=== PATIENT | male | born 1945 | race Caucasian/White ===

== ENCOUNTER 2019-02-14 12:35 | Inpatient (IN) | payer MEDICARE ==
[2019-02-14] MEDS ORDERED: PANTOPRAZOLE SODIUM 40 MG VIAL IV PRN (12:46)
[2019-02-14] MEDS ORDERED: PANTOPRAZOLE SODIUM 40 MG VIAL IV ONE (12:46)
[2019-02-14 13:07] LABS: ABSOLUTE LYMPHOCYTES (AUTO) 0.9 10^3/uL (0.5-4.7); ABSOLUTE MONOCYTES (AUTO) 0.6 10^3/uL (0.1-1.4); BASOPHILS % (AUTO) 0.2 % (0-2); EOSINOPHILS % (AUTO) 0.2 % (0-6); LYMPHOCYTES % (AUTO) 6.4 % (13-45); MEAN CORPUSCULAR HEMOGLOBIN 31.9 pg (27.0-33.4); MEAN CORPUSCULAR HGB CONC 33.4 g/dL (32.0-36.0); MEAN CORPUSCULAR VOLUME 95 fl (80-97); PLATELET COUNT 319 10^3/uL (150-450); RED CELL DISTRIBUTION WIDTH 13.9 % (11.5-14.0); SEGMENTED NEUTROPHILS % (AUTO) 89.2 % (42-78); TOTAL CELLS COUNTED % (AUTO) 100 %; WHITE BLOOD COUNT 14.6 10^3/uL (4.0-10.5)
[2019-02-14 13:14] LABS: INTERNATIONAL RATION (INR) 1.11; PARTIAL THROMBOPLASTIN TIME 31.5 SEC (23.5-35.8); PROTHROMBIN TIME 14.9 SEC (11.4-15.4)
[2019-02-14 13:24] LABS: ALANINE AMINOTRANSFERASE 27 U/L (21-72); ALBUMIN 3.9 g/dL (3.5-5.0); ALKALINE PHOSPHATASE 77 U/L (38-126); ANION GAP 13 (5-19); ASPARTATE AMINO TRANSFERASE 26 U/L (17-59); BILIRUBIN,DIRECT 0.3 mg/dL (0.0-0.4); BILIRUBIN,TOTAL 0.6 mg/dL (0.2-1.3); BLOOD UREA NITROGEN 16 mg/dL (7-20); CALCIUM 10.1 mg/dL (8.4-10.2); CARBON DIOXIDE 27 mmol/L (22-30); CHLORIDE 97 mmol/L (98-107); GLUCOSE 223 mg/dL (75-110); POTASSIUM 5.4 mmol/L (3.6-5.0); SODIUM 136.7 mmol/L (137-145); TOTAL PROTEIN 6.8 g/dL (6.3-8.2)
--- NOTE | 2019-02-14 14:42 | ER Document Report ---
Entered by TEDDY HERNANDEZ SCRIBE 02/14/19 1311 Acting as scribe for:KALEE MADSEN DO ED General - General Chief Complaint: Vomiting Stated Complaint: VOMITING Time Seen by Provider: 02/14/19 12:44 Mode of Arrival: Medic Information source: Patient Notes: Patient is a 73 year old male with enlarged prostate presents to the emergency department from [facility] via EMS due to vomiting. According to EMS, the patient had an episode of coffee ground emesis this morning and report visualizing the emesis upon arrival to the scene. Patient states he had prostate surgery 2 days ago and was sent to [facility] for rehabilitation afterwards as he is unable to perform all of his ADLs. He state states since being surgery, he has felt nauseous with an acid reflux sensation in his throat. Patient also complains of decreased appetite and fluid intake further stating he has been only able to consume a small amount of soda and Colombian Icee. He mentions having light red urine. He denies any bright red blood in stools or vomit. Patient mentions tarry stools a few weeks ago and being chronically off balance further stating he now uses a walker but this is not an acute change and he has no acute lightheadedness or weakness. Patient is taking a daily aspirin. Past Medical History - General Information source: Patient - Social History Smoking Status: Current Some Day Smoker Cigarette use (# per day): No - Cigars Chew tobacco use (# tins/day): No Smoking Education Provided: No Frequency of alcohol use: None Drug Abuse: None Lives with: [facility] Family History: Reviewed & Not Pertinent Review of Systems - Review of Systems Constitutional: No symptoms reported EENT: See HPI Cardiovascular: No symptoms reported Respiratory: No symptoms reported Gastrointestinal: See HPI, Nausea, Vomiting Genitourinary: See HPI, Hematuria Male Genitourinary: No symptoms reported Musculoskeletal: No symptoms reported Skin: No symptoms reported Hematologic/Lymphatic: No symptoms reported Neurological/Psychological: No symptoms reported -: Yes All other systems reviewed and negative Physical Exam - Vital signs Vitals: Resp BP Pulse Ox 17 131/92 H 96 02/14/19 12:44 02/14/19 12:44 02/14/19 12:44 Interpretation: Tachycardic - Notes Notes: GENERAL: Alert, interacts well. No acute distress. HEAD: Normocephalic, atraumatic. EYES: Pupils equal, round, and reactive to light. Extraocular movements intact. ENT: Oral mucosa moist, tongue midline. NECK: Full range of motion. Supple. Trachea midline. LUNGS: Clear to auscultation bilaterally, no wheezes, rales, or rhonchi. No res piratory distress. HEART: Tachycardic. No murmurs, gallops, or rubs. ABDOMEN: Soft, non-tender. Non-distended. Bowel sounds present in all 4 quadrants. No guarding, rigidity, or rebound. EXTREMITIES: Moves all 4 extremities spontaneously. No edema, 2+ peripheral pulses. No cyanosis. : Andrade catheter in place. Light red urine in bag. NEUROLOGICAL: Alert and oriented x3. Normal speech. PSYCH: Normal affect, normal mood. SKIN: Warm, dry, normal turgor. Slightly pale. RECTAL: Good sphincter tone. Soft brown stool, no signs of bright red blood or melena. Positive bedside heme occult. Course - Re-evaluation Re-evalutation: 02/14/19 14:43 CBC shows leukocytosis of 14.6, no anemia, normal platelets, coags INR slightly prolonged at 1.11, sodium minimally low at 136.7, potassium high at 5.4, glucose elevated 223, lipase normal, patient does not need acute blood transfusion at this time. Hemoccult is faintly positive at bedside. Patient is stable, discussed with hospitalist for admission as he is older, on blood thinners and in his immediate postoperative course. Hospitalist is agreeable to accepting the patient for admission. Will trend their hemoglobin and recheck. Dr. Mackenzie the surgeon is agreeable to intervening should he develop increasing bleeding. Patient was started on Protonix bolus and drip. - Vital Signs Vital signs: Temp Pulse Resp BP Pulse Ox 17 131/92 H 96 02/14/19 12:44 02/14/19 12:44 02/14/19 12:44 - Laboratory Result Diagrams: 02/14/19 12:41 02/14/19 12:41 Laboratory results interpreted by me: 02/14/19 02/14/19 02/14/19 12:41 12:41 12:41 WBC 14.6 H Seg Neutrophils % 89.2 H Lymphocytes % 6.4 L Absolute Neutrophils 13.0 H Sodium 136.7 L Potassium 5.4 H Chloride 97 L Glucose 223 H Lipase < 10.0 L - EKG Interpretation by Me Additional EKG results interpreted by me: 02/14/19 14:49 EKG shows sinus tachycardia at a rate of 116, now that he is been sitting in the room for a while normal axis, normal intervals, T wave inversions in lead III, aVF, T wave inversions V2 through V6 per my interpretation. Discharge - Discharge Clinical Impression: Upper GI bleed Condition: Good Disposition: ADMITTED INPATIENT Admitting Provider: Linda (Hospitalist) Unit Admitted: Telemetry I personally performed the services described in the documentation, reviewed and edited the documentation which was dictated to the scribe in my presence, and it accurately records my words and actions.
[2019-02-14] MEDS ORDERED: ONDANSETRON HCL INJ/PF 4 MG/2 ML SDV IV PRN (15:37)
[2019-02-14] MEDS ORDERED: LEVALBUTEROL HCL NEB 1.25 MG/3 ML AMPUL NEB PRN (15:37)
[2019-02-14] MEDS ORDERED: PROMETHAZINE HCL INJ 25 MG/1 ML VIAL IV PRN (15:37)
[2019-02-14] MEDS ORDERED: ACETAMINOPHEN 325 MG TABLET PO PRN (15:37)
[2019-02-14] MEDS ORDERED: NORMAL SALINE 1000 ML 1,000 ML IV PRN (15:37)
[2019-02-14] MEDS ORDERED: DEXTROSE 50%-WATER 25 GM/50 ML DISP.SYRIN IV PRN ×2 (15:41)
[2019-02-14] MEDS ORDERED: DEXTROSE 40% GEL 15 GM TUBE PO PRN ×2 (15:41)
[2019-02-14] MEDS ORDERED: GLUCAGON,HUMAN RECOMB 1 MG INJ IM PRN (15:41)
--- NOTE | 2019-02-14 16:34 | PDOC H&P ---
History of Present Illness Admission Date/PCP: 02/14/19 15:10 Patient complains of: Coffee-ground emesis History of Present Illness: RUBÉN PACKER is a 73 year old male with the past medical history significant for CVA, DM 2, hypertension, and recent TURP who presented from [facility] with report of onset of coffee-ground emesis this morning. Patient reports that he has had heartburn and indigestion for approximately 2 days; he is feeling somewhat better following his episode of vomiting this morning. The patient takes a daily baby aspirin and Mobic 15 mg. He was also recently started on Plavix following a TIA. Evaluation in the emergency department reveals Mild tachycardia (HR 115) and otherwise normal vital signs, leukocytosis (WBCs 14.6), hemoglobin 14, normal coags, and a chemistry remarkable only for potassium of 5.4. He has a normal creatinine and BUN. Occult stool was positive. EKG demonstrates sinus tachycardia. He is referred to the hospitalist service for admission and management of presumed upper GI bleed related to NSAIDs and Plavix use. Past Medical History Cardiac Medical History: Reports: Hyperlipidema, Hypertension Denies: Atrial Fibrillation, Congestive Heart Failure, Coronary Artery Disease, Myocardial Infarction Pulmonary Medical History: Reports: None EENT Medical History: Reports: None Neurological Medical History: Reports: Ischemic CVA Endocrine Medical History: Reports: Diabetes Mellitus Type 2 Renal/ Medical History: Reports: Other - BPH with TURP approximately 1 week ago; postoperative Andrade in place Malignancy Medical History: Reports: None GI Medical History: Reports: Gastroesophageal Reflux Disease Musculoskeltal Medical History: Reports: Arthritis Skin Medical History: Reports: None Psychiatric Medical History: Reports: Tobacco Dependency Traumatic Medical History: Reports: None Hematology: Reports: None Infectious Medical History: Reports: None Past Surgical History Past Surgical History: Reports: Other - TURP Social History Information Source: Patient Lives with: Alf - For short-term rehab; has been at [facility] for 1 week. Smoking Status: Current Some Day Smoker - 1 cigar daily Frequency of Alcohol Use: None Hx Recreational Drug Use: No Hx Prescription Drug Abuse: No - Advance Directive Resuscitation Status: Full Code Family History Family History: Reviewed & Not Pertinent Parental Family History Reviewed: Yes Children Family History Reviewed: Yes Sibling(s) Family History Reviewed.: Yes Medication/Allergy Home Medications: Aspirin [Ecotrin 81 mg EC Tablet] 81 mg PO DAILY 02/14/19 Atenolol [Tenormin] 25 mg PO QPM 02/14/19 Clopidogrel Bisulfate [Plavix 75 mg Tablet] 75 mg PO DAILY 02/14/19 Glipizide [Glucotrol 5 mg Tablet] 10 mg PO DAILY 02/14/19 Lisinopril [Prinivil 10 mg Tablet] 10 mg PO DAILY 02/14/19 Metformin HCl 1,000 mg PO BIDBS 02/14/19 Nicotine [Nicoderm 14 mg/24 Hr Transdermal Patch] 1 patch TD DAILY 02/14/19 Oxybutynin Chloride [Oxybutynin Chloride ER] 10 mg PO BID 02/14/19 Potassium Chloride [Klor-Con 10 Meq Capsule ER] 10 meq PO DAILY 02/14/19 Allergies/Adverse Reactions: No Known Allergies Allergy (Verified 02/14/19 16:14) Review of Systems Constitutional: PRESENT: weakness. ABSENT: chills, fever(s), headache(s), weight gain, weight loss Eyes: ABSENT: visual disturbances Ears: ABSENT: hearing changes Cardiovascular: ABSENT: chest pain, dyspnea on exertion, edema, orthropnea, palpitations Respiratory: ABSENT: cough, hemoptysis Gastrointestinal: PRESENT: coffee ground emesis, melena, nausea, vomiting. ABSENT: abdominal pain, constipation, diarrhea, hematemesis, hematochezia Genitourinary: PRESENT: hematuria, other - Postoperative Andrade in place. ABSENT: dysuria Musculoskeletal: ABSENT: joint swelling Integumentary: ABSENT: rash, wounds Neurological: ABSENT: abnormal gait, abnormal speech, confusion, dizziness, focal weakness, syncope Psychiatric: ABSENT: anxiety, depression, homidical ideation, suicidal ideation Endocrine: ABSENT: cold intolerance, heat intolerance, polydipsia, polyuria Hematologic/Lymphatic: ABSENT: easy bleeding, easy bruising Physical Exam Vital Signs: Temp Pulse Resp BP Pulse Ox 17 131/92 H 96 02/14/19 12:44 02/14/19 12:44 02/14/19 12:44 General appearance: PRESENT: no acute distress, cooperative, well-developed, well-nourished - Overweight Head exam: PRESENT: atraumatic, normocephalic Eye exam: PRESENT: conjunctiva pink, EOMI, PERRLA. ABSENT: scleral icterus Ear exam: PRESENT: normal external ear exam Mouth exam: PRESENT: moist, tongue midline Neck exam: ABSENT: carotid bruit, JVD, lymphadenopathy, thyromegaly Respiratory exam: PRESENT: clear to auscultation mackenzie, symmetrical, unlabored. ABSENT: rales, rhonchi, wheezes Cardiovascular exam: PRESENT: RRR. ABSENT: diastolic murmur, rubs, systolic murmur Pulses: PRESENT: normal dorsalis pedis pul Vascular exam: PRESENT: normal capillary refill GI/Abdominal exam: PRESENT: normal bowel sounds, soft. ABSENT: distended, guarding, mass, organolmegaly, rebound, tenderness Rectal exam: PRESENT: heme (+) stool - Per ED provider Gentrourinary exam: PRESENT: indwelling catheter Extremities exam: PRESENT: full ROM. ABSENT: calf tenderness, clubbing, pedal edema Neurological exam: PRESENT: alert, awake, oriented to person, oriented to place, oriented to time, oriented to situation, CN II-XII grossly intact. ABSENT: motor sensory deficit Psychiatric exam: PRESENT: appropriate affect, normal mood. ABSENT: homicidal ideation, suicidal ideation Skin exam: PRESENT: dry, intact, warm. ABSENT: cyanosis, rash Results Laboratory Results: 02/14/19 12:41 02/14/19 12:41 02/14/19 02/14/19 02/14/19 12:41 12:41 12:41 WBC 14.6 H RBC 4.40 Hgb 14.0 Hct 42.0 MCV 95 MCH 31.9 MCHC 33.4 RDW 13.9 Plt Count 319 Seg Neutrophils % 89.2 H Lymphocytes % 6.4 L Monocytes % 4.0 Eosinophils % 0.2 Basophils % 0.2 Absolute Neutrophils 13.0 H Absolute Lymphocytes 0.9 Absolute Monocytes 0.6 Absolute Eosinophils 0.0 Absolute Basophils 0.0 Sodium 136.7 L Potassium 5.4 H Chloride 97 L Carbon Dioxide 27 Anion Gap 13 BUN 16 Creatinine 0.76 Est GFR ( Amer) > 60 Est GFR (Non-Af Amer) > 60 Glucose 223 H Calcium 10.1 Total Bilirubin 0.6 AST 26 ALT 27 Alkaline Phosphatase 77 Total Protein 6.8 Albumin 3.9 Lipase Blood Type A POSITIVE Antibody Screen NEGATIVE 02/14/19 12:41 WBC RBC Hgb Hct MCV MCH MCHC RDW Plt Count Seg Neutrophils % Lymphocytes % Monocytes % Eosinophils % Basophils % Absolute Neutrophils Absolute Lymphocytes Absolute Monocytes Absolute Eosinophils Absolute Basophils Sodium Potassium Chloride Carbon Dioxide Anion Gap BUN Creatinine Est GFR ( Amer) Est GFR (Non-Af Amer) Glucose Calcium Total Bilirubin AST ALT Alkaline Phosphatase Total Protein Albumin Lipase < 10.0 L Blood Type Antibody Screen Assessment and Plan - Diagnosis (1) Upper GI bleed Is this a current diagnosis for this admission?: Yes Plan: Patient takes daily aspirin and Mobic. He was recently started on Plavix for recurrent TIAs. He has had 1 to 2 days of gastritis/epigastric discomfort with coffee-ground emesis beginning this morning. Occult stool was positive. Hemoglobin is 14. He appears to be hemodynamically stable at this time. He is admitted to the medical floor. He is already received an IV Protonix bolus and has been placed on a Protonix drip. We will continue Protonix drip. He is placed on clear liquid diets; will advance slowly as tolerated. We will monitor daily CBC. Ideally the patient's hemoglobin will remain stable and his symptoms will resolve so that he can be discharged to [facility] with outpatient GI follow-up. Should the patient's condition deteriorate; the ED provider has contacted Dr. Sa phillip, surgery, will be able to assist with management of the patient. (2) Hypertension Is this a current diagnosis for this admission?: Yes Plan: Patient endorses a history of hypertension. He is currently on a clear diet; will advance to cardiac as tolerated. We will continue his home dose lisinopril and atenolol. (3) DM type 2 (diabetes mellitus, type 2) Qualifiers: Diabetes mellitus extension course counselor insulin use: without extension course counselor use Diabetes mellitus complication status: without complication Qualified Code(s): E11.9 - Type 2 diabetes mellitus without complications Is this a current diagnosis for this admission?: Yes Plan: Patient endorses history of diabetes. His home dose metformin and glipizide will be placed on hold while admitted. Currently on a clear liquid diet; will advance to cardiac/consistent carb when tolerated. Accu-Cheks before meals and at bedtime with Humalog for sliding scale coverage. Hypoglycemia protocol in place. (4) History of CVA (cerebrovascular accident) Is this a current diagnosis for this admission?: Yes Plan: Patient has a history of CVA and multiple TIA events. He was recently evaluated at [place] for TIA. He was already on aspirin 81 mg daily and so was placed on Plavix as well. Plavix was briefly held to allow for TURP but was resumed approximately 5 days ago. He has no history of PAF that he can recall. It does not appear that the patient is on a statin. Aspirin and Plavix on hold secondary to active GI bleed. (5) Urinary retention Is this a current diagnosis for this admission?: Yes Plan: Patient recently underwent a TURP at [place] for acute urinary retention. We will continue his home dose oxybutynin. We will relieve postoperative Andrade catheter in place. Patient reports occasional hematuria; flush as needed. - Time Time Spent with patient: 35 or more minutes Medications reviewed and adjusted accordingly: Yes Anticipated discharge: SNF - Return to [facility] for short term rehab Within: within 72 hours
[2019-02-14] MEDS ORDERED: (PENDING PHARMACY ID) (Oxybutynin Chloride [Oxybutynin Chloride Er] 10 MG) PO SCH (18:00)
[2019-02-14] MEDS ORDERED: ATENOLOL 50 MG TABLET PO SCH (18:00)
[2019-02-14] MEDS ORDERED: (PENDING PHARMACY ID) (Atenolol [Tenormin] 25 MG) PO SCH (18:00)
[2019-02-14] MEDS: OXYBUTYNIN CHLORIDE 5 MG TABLET PO SCH (18:16)
[2019-02-14] MEDS: INSULIN LISPRO 100 UNIT/ML 3 ML VIAL SUBCUT SCH ×2 (18:17→22:09)
[2019-02-14 19:09] LABS: APPEARANCE,URINE CLOUDY; BILIRUBIN,URINE NEGATIVE (NEGATIVE); COLOR,URINE YELLOW; GLUCOSE, URINE 50 mg/dL (NEGATIVE); KETONES,URINE TRACE mg/dL (NEGATIVE); LEUKOCYTE ESTERASE,URINE TRACE (NEGATIVE); NITRITE,URINE NEGATIVE (NEGATIVE); PROTEIN,URINE >=500 mg/dL (NEGATIVE); URINE SPECIFIC GRAVITY 1.022; UROBILINOGEN,URINE NEGATIVE mg/dL (<2.0)
[2019-02-15 05:03] LABS: HEMATOCRIT 37.5 % (37.9-51.0); HEMOGLOBIN 12.7 g/dL (13.5-17.0); MEAN CORPUSCULAR HEMOGLOBIN 32.3 pg (27.0-33.4); MEAN CORPUSCULAR HGB CONC 33.9 g/dL (32.0-36.0); MEAN CORPUSCULAR VOLUME 95 fl (80-97); PLATELET COUNT 270 10^3/uL (150-450); RED BLOOD COUNT 3.94 10^6/uL (4.35-5.55); RED CELL DISTRIBUTION WIDTH 13.8 % (11.5-14.0); WHITE BLOOD COUNT 11.7 10^3/uL (4.0-10.5)
[2019-02-15 05:24] LABS: ANION GAP 8 (5-19); BLOOD UREA NITROGEN 17 mg/dL (7-20); CALCIUM 8.7 mg/dL (8.4-10.2); CARBON DIOXIDE 26 mmol/L (22-30); CHLORIDE 103 mmol/L (98-107); GLUCOSE 126 mg/dL (75-110); SODIUM 137.2 mmol/L (137-145)
[2019-02-15] MEDS: NORMAL SALINE 100 ML with PANTOPRAZOLE SODIUM 80 MG IV PRN ×4 (07:10→16:58)
[2019-02-15] MEDS: INSULIN LISPRO 100 UNIT/ML 3 ML VIAL SUBCUT SCH ×4 (08:08→21:34)
[2019-02-15] MEDS ORDERED: NORMAL SALINE 1000 ML 1,000 ML IV PRN (08:47)
--- NOTE | 2019-02-15 09:30 | EKG REPORT ---
SEVERITY:- ABNORMAL ECG - SINUS OR ECTOPIC ATRIAL TACHYCARDIA ABNRM R PROG, CONSIDER ASMI OR LEAD PLACEMENT BORDERLINE ST DEPRESSION, DIFFUSE LEADS : Confirmed by: Simran Contreras MD 15-Feb-2019 09:29:23
[2019-02-15] MEDS: OXYBUTYNIN CHLORIDE 5 MG TABLET PO SCH ×2 (10:26→17:02)
[2019-02-15] MEDS: LISINOPRIL 10 MG TABLET PO SCH (10:27)
[2019-02-15] MEDS: ATENOLOL 50 MG TABLET PO SCH ×2 (10:27→17:02)
[2019-02-15] MEDS: NICOTINE 14 MG/24 HR PATCH.TD24 TD SCH (10:28)
--- NOTE | 2019-02-15 11:59 | PDOC PROGRESS REPORT ---
Subjective Progress Note for:: 02/15/19 Subjective:: RUBÉN PACKER is a 73 year old male with the past medical history significant for CVA, DM 2, PAF, hypertension, and recent TURP who presented from [facility] (short term rehab) was admitted 02/14/19 for Upper GI bleed. Patient was seen on morning rounds. He is found resting in bed comfortably on room air. He reports that he is feeling well today; he has had no further episodes of hematemesis. He reports that he is tolerating clear liquid diet without abdominal discomfort, nausea, emesis, loose or frequent stools. He denies hematochezia and melena. He further denies fever, chills, headache, dizziness, chest pain, palpitations, dyspnea, orthopnea. He has no questions or concerns today. Nursing reports intermittent episodes of a flutter on telemetry; patient confirms history of PAF. Reason For Visit: UPPER GI BLEED Physical Exam Vital Signs: Temp Pulse Resp BP Pulse Ox 97.9 F 114 H 20 132/84 H 98 02/15/19 08:27 02/15/19 09:17 02/15/19 09:17 02/15/19 08:27 02/15/19 09:17 Intake & Output 02/14/19 02/15/19 02/16/19 06:59 06:59 06:59 Intake Total 390 350 Output Total 1325 Balance -935 350 Weight 102 kg General appearance: PRESENT: no acute distress, cooperative, well-developed, wel l-nourished, other - Overweight Head exam: PRESENT: atraumatic, normocephalic Eye exam: PRESENT: conjunctiva pink, EOMI, PERRLA. ABSENT: scleral icterus Ear exam: PRESENT: normal external ear exam Mouth exam: PRESENT: moist, tongue midline Neck exam: ABSENT: carotid bruit, JVD, lymphadenopathy, thyromegaly Respiratory exam: PRESENT: clear to auscultation mackenzie, symmetrical, unlabored. ABSENT: rales, rhonchi, wheezes Cardiovascular exam: PRESENT: irregular rhythm, +S1, +S2. ABSENT: diastolic murmur, rubs, systolic murmur Pulses: PRESENT: normal dorsalis pedis pul Vascular exam: PRESENT: normal capillary refill GI/Abdominal exam: PRESENT: normal bowel sounds, soft. ABSENT: distended, guarding, mass, organolmegaly, rebound, tenderness Rectal exam: PRESENT: deferred Extremities exam: PRESENT: full ROM. ABSENT: calf tenderness, clubbing, pedal edema Neurological exam: PRESENT: alert, awake, oriented to person, oriented to place, oriented to time, oriented to situation, CN II-XII grossly intact. ABSENT: motor sensory deficit Psychiatric exam: PRESENT: appropriate affect, normal mood. ABSENT: homicidal ideation, suicidal ideation Skin exam: PRESENT: dry, intact, warm. ABSENT: cyanosis, rash Results Laboratory Results: 02/15/19 04:18 02/15/19 04:18 02/14/19 02/14/19 02/14/19 12:41 12:41 12:41 WBC 14.6 H RBC 4.40 Hgb 14.0 Hct 42.0 MCV 95 MCH 31.9 MCHC 33.4 RDW 13.9 Plt Count 319 Seg Neutrophils % 89.2 H Lymphocytes % 6.4 L Monocytes % 4.0 Eosinophils % 0.2 Basophils % 0.2 Absolute Neutrophils 13.0 H Absolute Lymphocytes 0.9 Absolute Monocytes 0.6 Absolute Eosinophils 0.0 Absolute Basophils 0.0 Sodium 136.7 L Potassium 5.4 H Chloride 97 L Carbon Dioxide 27 Anion Gap 13 BUN 16 Creatinine 0.76 Est GFR ( Amer) > 60 Est GFR (Non-Af Amer) > 60 Glucose 223 H Calcium 10.1 Total Bilirubin 0.6 AST 26 ALT 27 Alkaline Phosphatase 77 Total Protein 6.8 Albumin 3.9 Lipase Urine Color Urine Appearance Urine pH Ur Specific [place] Urine Protein Urine Glucose (UA) Urine Ketones Urine Blood Urine Nitrite Ur Leukocyte Esterase Urine WBC (Auto) Urine RBC (Auto) Blood Type A POSITIVE Antibody Screen NEGATIVE 02/14/19 02/14/19 02/15/19 12:41 18:38 04:18 WBC 11.7 H RBC 3.94 L Hgb 12.7 L Hct 37.5 L MCV 95 MCH 32.3 MCHC 33.9 RDW 13.8 Plt Count 270 Seg Neutrophils % Lymphocytes % Monocytes % Eosinophils % Basophils % Absolute Neutrophils Absolute Lymphocytes Absolute Monocytes Absolute Eosinophils Absolute Basophils Sodium Potassium Chloride Carbon Dioxide Anion Gap BUN Creatinine Est GFR ( Amer) Est GFR (Non-Af Amer) Glucose Calcium Total Bilirubin AST ALT Alkaline Phosphatase Total Protein Albumin Lipase < 10.0 L Urine Color YELLOW Urine Appearance CLOUDY Urine pH 5.0 Ur Specific [place] 1.022 Urine Protein >=500 H Urine Glucose (UA) 50 H Urine Ketones TRACE H Urine Blood MODERATE H Urine Nitrite NEGATIVE Ur Leukocyte Esterase TRACE H Urine WBC (Auto) 107 Urine RBC (Auto) >182 Blood Type Antibody Screen 02/15/19 04:18 WBC RBC Hgb Hct MCV MCH MCHC RDW Plt Count Seg Neutrophils % Lymphocytes % Monocytes % Eosinophils % Basophils % Absolute Neutrophils Absolute Lymphocytes Absolute Monocytes Absolute Eosinophils Absolute Basophils Sodium 137.2 Potassium 5.0 Chloride 103 Carbon Dioxide 26 Anion Gap 8 BUN 17 Creatinine 0.79 Est GFR ( Amer) > 60 Est GFR (Non-Af Amer) > 60 Glucose 126 H Calcium 8.7 Total Bilirubin AST ALT Alkaline Phosphatase Total Protein Albumin Lipase Urine Color Urine Appearance Urine pH Ur Specific [place] Urine Protein Urine Glucose (UA) Urine Ketones Urine Blood Urine Nitrite Ur Leukocyte Esterase Urine WBC (Auto) Urine RBC (Auto) Blood Type Antibody Screen Assessment and Plan - Diagnosis (1) Upper GI bleed Is this a current diagnosis for this admission?: Yes Plan: Patient takes daily aspirin and Mobic. He was recently started on Plavix for recurrent TIAs. He has had 1 to 2 days of gastritis/epigastric discomfort with coffee-ground emesis beginning this morning. Occult stool was positive. Hemoglobin is 14-> 12.7 (likely hemodilution). He appears to be hemodynamically stable at this time. He is admitted to the medical floor. Continue Protonix drip. He is placed on clear liquid diets. Spoke with Dr. Mackenzie today; as there is concern about the patient's ability to follow-up as an outpatient (disclose that he is homeless) we will plan for EGD tomorrow. We will monitor daily CBC. (2) Hypertension Is this a current diagnosis for this admission?: Yes Plan: Patient endorses a history of hypertension. Continue lisinopril and atenolol. (3) DM type 2 (diabetes mellitus, type 2) Qualifiers: Diabetes mellitus terminal gauger supervisor insulin use: without terminal gauger supervisor use Diabetes mellitus complication status: without complication Qualified Code(s): E11.9 - Type 2 diabetes mellitus without complications Is this a current diagnosis for this admission?: Yes Plan: Patient endorses history of diabetes. His home dose metformin and glipizide will be placed on hold while admitted. Currently on a clear liquid diet; will advance to cardiac/consistent carb when tolerated. Accu-Cheks before meals and at bedtime with Humalog for sliding scale coverage. Hypoglycemia protocol in place. (4) History of CVA (cerebrovascular accident) Is this a current diagnosis for this admission?: Yes Plan: Patient has a history of CVA and multiple TIA events. He was recently evaluated at [place] for TIA. He was already on aspirin 81 mg daily and so was placed on Plavix as well. Plavix was briefly held to allow for TURP but was resumed approximately 5 days ago. He has no history of PAF that he can recall. It does not appear that the patient is on a statin. Aspirin and Plavix on hold secondary to active GI bleed. (5) Urinary retention Is this a current diagnosis for this admission?: Yes Plan: Patient recently underwent a TURP at [place] for acute urinary retention. We will continue his home dose oxybutynin. We will relieve postoperative Andrade catheter in place. Patient reports occasional hematuria; flush as needed. (6) PAF (paroxysmal atrial fibrillation) Is this a current diagnosis for this admission?: Yes Plan: Patient endorses a history of atrial fibrillation. At time of admission yesterday patient was in normal sinus rhythm, today he was noted to have episodes of a flutter. Daily aspirin is on hold secondary to upper GI bleed. Home dose of atenolol is increased from 25 mg nightly to 25 mg twice daily. We will continue to monitor on cardiac telemetry and consider addition of di ltiazem. Patient was not chronically anticoagulated; would advise against chronic anticoagulation. Chads vas score 5; 7.2% yearly CVA risk. Has Bled score 5; 9.1% yearly hemorrhage risk. - Time Time Spent with patient: 25-34 minutes Medications reviewed and adjusted accordingly: Yes Anticipated discharge: Home - [facility] Within: within 48 hours
[2019-02-15] MEDS: MAG HYDROX/AL HYDROX/SIMETH SUSP 30 ML UDCUP PO PRN ×2 (13:05→20:26)
--- NOTE | 2019-02-15 23:07 | PDOC CONSULTATION ---
Consultation Consult Date: 02/15/19 Provider Consulted: SURGICAL SURGICALIST Consult reason:: upper GI bleeding History of Present Illness Admission Date/PCP: 02/14/19 15:10 Patient complains of: hematemesis History of Present Illness: RUBÉN PACKER is a 73 year old male seen in consultation at the request of the hospitalist. The patient has a 1 day history of multiple episodes of hematemesis. The patient reports bright red and dark blood. This happened twice yesterday. It has not happened since. He has never had symptoms like this before. He is not sure of any inciting event. The patient denies any significant abdominal pain. He denies any use of soda pop, NSAIDs, alcohol, caffeine, or steroids. He does smoke every day. He has never been tested for H. pylori. He has never had an upper endoscopy. The patient does take Plavix, however he has been off of it for several days. The patient denies chest pain, shortness of breath, fevers, chills, melena, dizziness, orthostasis, fatigue, malaise, blurry vision, rash. Past Medical History Cardiac Medical History: Reports: Hyperlipidema, Hypertension Denies: Atrial Fibrillation, Congestive Heart Failure, Coronary Artery Disease, Myocardial Infarction Pulmonary Medical History: Reports: None EENT Medical History: Reports: None Neurological Medical History: Reports: Ischemic CVA Endocrine Medical History: Reports: Diabetes Mellitus Type 2 Renal/ Medical History: Reports: Other - BPH with TURP approximately 1 week ago; postoperative Andrade in place Malignancy Medical History: Reports: None GI Medical History: Reports: Gastroesophageal Reflux Disease Musculoskeltal Medical History: Reports: Arthritis Skin Medical History: Reports: None Psychiatric Medical History: Reports: Tobacco Dependency Traumatic Medical History: Reports: None Hematology: Reports: None Infectious Medical History: Reports: None Past Surgical History Past Surgical History: Reports: Other - TURP Social History Lives with: Care Home - For short-term rehab; has been at [facility] for 1 week. Smoking Status: Current Some Day Smoker Frequency of Alcohol Use: None Hx Recreational Drug Use: No Hx Prescription Drug Abuse: No - Advance Directive Resuscitation Status: Full Code Family History Family History: Reviewed & Not Pertinent Parental Family History Reviewed: Yes Children Family History Reviewed: Yes Sibling(s) Family History Reviewed.: Yes Medication/Allergy Home Medications: Aspirin [Ecotrin 81 mg EC Tablet] 81 mg PO DAILY 06/22/19 Atenolol [Tenormin] 25 mg PO QPM 02/14/19 Clopidogrel Bisulfate [Plavix 75 mg Tablet] 75 mg PO DAILY 02/14/19 Glipizide [Glucotrol 5 mg Tablet] 10 mg PO DAILY 02/14/19 Lisinopril [Prinivil 10 mg Tablet] 10 mg PO DAILY 02/14/19 Metformin HCl 1,000 mg PO BIDBS 02/14/19 Nicotine [Nicoderm 14 mg/24 Hr Transdermal Patch] 1 patch TD DAILY 02/14/19 Oxybutynin Chloride [Oxybutynin Chloride ER] 10 mg PO BID 02/14/19 Potassium Chloride [Klor-Con 10 Meq Capsule ER] 10 meq PO DAILY 02/14/19 Allergies/Adverse Reactions: No Known Allergies Allergy (Verified 02/14/19 16:14) Review of Systems Constitutional: ABSENT: anorexia, chills, fatigue Eyes: ABSENT: visual disturbances Ears: ABSENT: hearing changes Nose, Mouth, and Throat: ABSENT: sore throat Cardiovascular: ABSENT: chest pain Gastrointestinal: PRESENT: coffee ground emesis, hematemesis, nausea, vomiting. ABSENT: abdominal pain, bloating, melena Genitourinary: PRESENT: dysuria Musculoskeletal: ABSENT: back pain Integumentary: ABSENT: pruritus, rash Neurological: ABSENT: confusion, convulsions, dizziness Psychiatric: ABSENT: anxiety, depression Endocrine: ABSENT: cold intolerance, heat intolerance Hematologic/Lymphatic: PRESENT: easy bruising Physical Exam Vital Signs: Temp Pulse Resp BP Pulse Ox 98.4 F 64 16 125/84 99 02/15/19 20:00 02/15/19 20:00 02/15/19 20:00 02/15/19 20:00 02/15/19 20:00 Intake & Output 02/14/19 02/15/19 02/16/19 06:59 06:59 06:59 Intake Total 390 1930 Output Total 1325 1750 Balance -935 180 Weight 102 kg General appearance: PRESENT: no acute distress, cooperative Head exam: PRESENT: atraumatic, normocephalic Eye exam: PRESENT: EOMI, PERRLA. ABSENT: scleral icterus Mouth exam: PRESENT: moist Neck exam: ABSENT: meningismus, tenderness, thyromegaly, tracheal deviation Respiratory exam: PRESENT: clear to auscultation mackenzie, unlabored. ABSENT: chest wall tenderness, tachypnea Cardiovascular exam: PRESENT: RRR Pulses: PRESENT: normal radial pulses GI/Abdominal exam: PRESENT: soft. ABSENT: distended, guarding, rigid, tenderness Rectal exam: PRESENT: deferred Extremities exam: ABSENT: clubbing Musculoskeletal exam: ABSENT: deformity Neurological exam: PRESENT: alert, awake, oriented to person, oriented to place, oriented to time, oriented to situation Psychiatric exam: ABSENT: agitated, anxious Focused psych exam: ABSENT: delusional Skin exam: ABSENT: cyanosis, erythema, jaundice Results Laboratory Results: 02/15/19 04:18 02/15/19 04:18 02/15/19 02/15/19 04:18 04:18 WBC 11.7 H RBC 3.94 L Hgb 12.7 L Hct 37.5 L MCV 95 MCH 32.3 MCHC 33.9 RDW 13.8 Plt Count 270 Sodium 137.2 Potassium 5.0 Chloride 103 Carbon Dioxide 26 Anion Gap 8 BUN 17 Creatinine 0.79 Est GFR ( Amer) > 60 Est GFR (Non-Af Amer) > 60 Glucose 126 H Calcium 8.7 Assessment & Plan - Diagnosis (1) Upper GI bleed Is this a current diagnosis for this admission?: Yes - Plan Summary Plan Summary: This is a 73-year-old male with 2 separate episodes of hematemesis yesterday. The patient had a slight drop in his hemoglobin today. The patient has never had an upper endoscopy. He does use a significant amount of nicotine. I have discussed treatment options with the patient. He is requesting upper endoscopy. He has been off of his Plavix for several days. Risks/benefits were discussed, informed consent obtained, and all questions answered.
[2019-02-16] MEDS: NORMAL SALINE 100 ML with PANTOPRAZOLE SODIUM 80 MG IV PRN ×2 (01:49)
[2019-02-16 04:44] LABS: HEMATOCRIT 36.1 % (37.9-51.0); HEMOGLOBIN 12.2 g/dL (13.5-17.0); MEAN CORPUSCULAR HGB CONC 33.9 g/dL (32.0-36.0); MEAN CORPUSCULAR VOLUME 94 fl (80-97); PLATELET COUNT 251 10^3/uL (150-450); RED BLOOD COUNT 3.82 10^6/uL (4.35-5.55); RED CELL DISTRIBUTION WIDTH 13.4 % (11.5-14.0); WHITE BLOOD COUNT 8.8 10^3/uL (4.0-10.5)
[2019-02-16 05:08] LABS: ANION GAP 7 (5-19); BLOOD UREA NITROGEN 12 mg/dL (7-20); CALCIUM 8.6 mg/dL (8.4-10.2); CARBON DIOXIDE 27 mmol/L (22-30); CHLORIDE 105 mmol/L (98-107); GLUCOSE 134 mg/dL (75-110); POTASSIUM 5.1 mmol/L (3.6-5.0); SODIUM 138.6 mmol/L (137-145)
--- NOTE | 2019-02-16 07:37 | PDOC PROGRESS REPORT ---
Subjective Progress Note for:: 02/16/19 Reason For Visit: UPPER GI BLEED Physical Exam Vital Signs: Temp Pulse Resp BP Pulse Ox 97.8 F 87 17 116/73 98 02/15/19 23:33 02/16/19 02:00 02/15/19 23:33 02/15/19 23:33 02/15/19 23:33 Intake & Output 02/15/19 02/16/19 02/17/19 06:59 06:59 06:59 Intake Total 390 1930 Output Total 1325 3350 Balance -935 -1420 Weight 102 kg 103.1 kg General appearance: PRESENT: no acute distress Head exam: PRESENT: atraumatic, normocephalic Eye exam: PRESENT: EOMI, PERRLA Mouth exam: PRESENT: moist, neck supple Neck exam: ABSENT: meningismus, tenderness, thyromegaly, tracheal deviation Respiratory exam: PRESENT: clear to auscultation mackenzie, unlabored. ABSENT: tachypnea, wheezes Cardiovascular exam: PRESENT: RRR Pulses: PRESENT: normal radial pulses GI/Abdominal exam: PRESENT: soft. ABSENT: distended, tenderness Rectal exam: PRESENT: deferred Extremities exam: ABSENT: clubbing Musculoskeletal exam: ABSENT: deformity Neurological exam: PRESENT: alert, awake, oriented to person, oriented to place, oriented to time, oriented to situation, CN II-XII grossly intact Psychiatric exam: ABSENT: agitated, anxious, depressed Focused psych exam: ABSENT: delusional Skin exam: ABSENT: cyanosis, erythema, jaundice Results Laboratory Results: 02/16/19 04:15 02/16/19 04:15 02/16/19 02/16/19 04:15 04:15 WBC 8.8 RBC 3.82 L Hgb 12.2 L Hct 36.1 L MCV 94 MCH 32.0 MCHC 33.9 RDW 13.4 Plt Count 251 Sodium 138.6 Potassium 5.1 H Chloride 105 Carbon Dioxide 27 Anion Gap 7 BUN 12 Creatinine 0.78 Est GFR ( Amer) > 60 Est GFR (Non-Af Amer) > 60 Glucose 134 H Calcium 8.6 Assessment & Plan - Diagnosis (1) Upper GI bleed Is this a current diagnosis for this admission?: Yes - Plan Summary Plan Summary: 73-year-old male with hematemesis. He has requested EGD for diagnostic purposes. I have agreed to this. Risks/benefits discussed, informed consent obtained, and all questions answered. Plan for EGD today.
[2019-02-16] MEDS: INSULIN LISPRO 100 UNIT/ML 3 ML VIAL SUBCUT SCH ×4 (09:26→21:37)
[2019-02-16] MEDS: ATENOLOL 50 MG TABLET PO SCH ×2 (09:59→17:00)
[2019-02-16] MEDS: NICOTINE 14 MG/24 HR PATCH.TD24 TD SCH (09:59)
[2019-02-16] MEDS: LISINOPRIL 10 MG TABLET PO SCH (09:59)
[2019-02-16] MEDS: OXYBUTYNIN CHLORIDE 5 MG TABLET PO SCH ×2 (09:59→17:00)
[2019-02-16] MEDS ORDERED: MIDAZOLAM 2 MG/2 ML INJ ONE (11:52)
[2019-02-16] MEDS ORDERED: PROPOFOL INJ 200 MG/20 ML VIAL IV ONE (11:53)
--- NOTE | 2019-02-16 12:22 | PDOC PROGRESS REPORT ---
Subjective Progress Note for:: 02/16/19 Subjective:: RUBÉN PACKER is a 73 year old male with the past medical history significant for CVA, DM 2, PAF, hypertension, and recent TURP who presented from [facility] (short term rehab) was admitted 02/14/19 for Upper GI bleed. Patient was seen on morning rounds. He is found resting in bed comfortably on room air. He reports that he is feeling well today. He denies hematemesis, hematochezia and melena. He further denies fever, chills, headache, dizziness, chest pain, palpitations, dyspnea, orthopnea. He has no questions or concerns today. No concerns per nursing. Reason For Visit: UPPER GI BLEED Physical Exam Vital Signs: Temp Pulse Resp BP Pulse Ox 97.7 F 86 16 121/85 96 02/16/19 07:18 02/16/19 09:11 02/16/19 09:11 02/16/19 07:18 02/16/19 09:11 Intake & Output 02/15/19 02/16/19 02/17/19 06:59 06:59 06:59 Intake Total 390 1930 Output Total 1325 3350 Balance -935 -1420 Weight 102 kg 103.1 kg General appearance: PRESENT: no acute distress, cooperative, well-developed, well-nourished - Overweight Head exam: PRESENT: atraumatic, normocephalic Eye exam: PRESENT: conjunctiva pink, EOMI, PERRLA. ABSENT: scleral icterus Ear exam: PRESENT: normal external ear exam Mouth exam: PRESENT: moist, tongue midline Neck exam: ABSENT: carotid bruit, JVD, lymphadenopathy, thyromegaly Respiratory exam: PRESENT: clear to auscultation mackenzie, symmetrical, unlabored. ABSENT: rales, rhonchi, wheezes Cardiovascular exam: PRESENT: irregular rhythm, +S1, +S2. ABSENT: diastolic murmur, rubs, systolic murmur Pulses: PRESENT: normal dorsalis pedis pul Vascular exam: PRESENT: normal capillary refill GI/Abdominal exam: PRESENT: normal bowel sounds, soft. ABSENT: distended, guarding, mass, organolmegaly, rebound, tenderness Rectal exam: PRESENT: deferred Gentrourinary exam: PRESENT: indwelling catheter Extremities exam: PRESENT: full ROM. ABSENT: calf tenderness, clubbing, pedal edema Neurological exam: PRESENT: alert, awake, oriented to person, oriented to place, oriented to time, oriented to situation, CN II-XII grossly intact. ABSENT: motor sensory deficit Psychiatric exam: PRESENT: appropriate affect, normal mood. ABSENT: homicidal ideation, suicidal ideation Skin exam: PRESENT: dry, intact, warm. ABSENT: cyanosis, rash Results Laboratory Results: 02/16/19 04:15 02/16/19 04:15 02/16/19 02/16/19 04:15 04:15 WBC 8.8 RBC 3.82 L Hgb 12.2 L Hct 36.1 L MCV 94 MCH 32.0 MCHC 33.9 RDW 13.4 Plt Count 251 Sodium 138.6 Potassium 5.1 H Chloride 105 Carbon Dioxide 27 Anion Gap 7 BUN 12 Creatinine 0.78 Est GFR ( Amer) > 60 Est GFR (Non-Af Amer) > 60 Glucose 134 H Calcium 8.6 Assessment and Plan - Diagnosis (1) Upper GI bleed Is this a current diagnosis for this admission?: Yes Plan: Patient takes daily aspirin and Mobic. He was recently started on Plavix for recurrent TIAs. He has had 1 to 2 days of gastritis/epigastric discomfort with coffee-ground em esis beginning this morning. Occult stool was positive. Hemoglobin is 14-> 12.2 (likely hemodilution). He appears to be hemodynamically stable at this time. He is admitted to the medical floor. Transition to p.o. Protonix following the EGD. Surgery is consulted; appreciate their assistance. Plan for EGD today. We will monitor daily CBC. (2) Hypertension Is this a current diagnosis for this admission?: Yes Plan: Patient endorses a history of hypertension. Normotensive today. Continue lisinopril and atenolol. 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 His home dose metformin and glipizide will be placed on hold while admitted. Currently on a clear liquid diet; will advance to cardiac/consistent carb when tolerated. Accu-Cheks before meals and at bedtime with Humalog for sliding scale coverage. Hypoglycemia protocol in place. (4) History of CVA (cerebrovascular accident) Is this a current diagnosis for this admission?: Yes Plan: Patient has a history of CVA and multiple TIA events. He was recently evaluated at [facility] for TIA. He was already on aspirin 81 mg daily and so was placed on Plavix as well. Plavix was briefly held to allow for TURP but was resumed approximately 5 days ago. He has no history of PAF that he can recall. It does not appear that the patient is on a statin. Aspirin and Plavix on hold secondary to active GI bleed. (5) Urinary retention Is this a current diagnosis for this admission?: Yes Plan: Patient recently underwent a TURP at [facility] for acute urinary retention. We will continue his home dose oxybutynin. Patient reports occasional hematuria; flush as needed. Discharge home w/ Andrade in place. Follow up with Urologist as scheduled. (6) PAF (paroxysmal atrial fibrillation) Is this a current diagnosis for this admission?: Yes Plan: Patient endorses a history of atrial fibrillation. Currently rate controlled in a flutter. Daily aspirin is on hold secondary to upper GI bleed. Continue atenolol 25 mg twice daily. We will continue to monitor on cardiac telemetry and consider addition of diltiazem. Patient was not chronically anticoagulated; would advise against chronic anticoagulation. Chads vas score 5; 7.2% yearly CVA risk. Has Bled score 5; 9.1% yearly hemorrhage risk. - Time Time Spent with patient: 15-24 minutes Medications reviewed and adjusted accordingly: Yes Anticipated discharge: SNF - return to [facility] for short term rehab Within: within 24 hours
[2019-02-16] MEDS ORDERED: PROMETHAZINE HCL INJ 25 MG/1 ML VIAL IV PRN (15:23)
--- NOTE | 2019-02-17 01:21 | Operative Report ---
Nonrecallable Operative Report DATE OF SURGERY: 02/16/19 PREOPERATIVE DIAGNOSIS: Hematemesis, upper GI bleeding POSTOPERATIVE DIAGNOSIS: 1. Severe esophagitis extending from approximately 25 cm to the GE junction at approximately 45 cm. 2. Normal-appearing stomach and duodenum. OPERATION: EGD with biopsy SURGEON: JUAN F RAMOS ANESTHESIA: LMAC TISSUE REMOVED OR ALTERED: 1. Antrum biopsy to rule out H. pylori. 2. Distal esophagus. 3. Midesophagus. COMPLICATIONS: None apparent ESTIMATED BLOOD LOSS: Minimal PROCEDURE: Procedure in detail: After informed consent was obtained, the patient was brought to the operating room and laid in the left lateral decubitus position. The endoscope was passed down the oropharynx, down the esophagus, and into the stomach. The stomach was insufflated with air. The mucosa of the stomach appeared normal. The scope was pushed through the pylorus and into the first a nd second portions of the duodenum, which also appeared normal. There is no old blood or evidence of active bleeding. A biopsy was taken in the antrum to rule out H. pylori infection. Retroflexion maneuver was performed in the gastric body, revealing a small, sliding hiatal hernia. The scope was then pulled up into the distal esophagus. Severe ulcerations were found at the distal esophagus beginning at the GE junction and extending up to approximately 25 cm. Biopsy was taken at the distal esophagus as well as approximately 30 cm in the mid esophagus. The scope was then pulled up the remainder of the esophagus, and out the oropharynx. The procedure at this time was concluded. All sponge, instrument, and needle counts were correct. Condition: Stable.
[2019-02-17 04:07] LABS: HEMOGLOBIN 12.2 g/dL (13.5-17.0); MEAN CORPUSCULAR HEMOGLOBIN 31.8 pg (27.0-33.4); MEAN CORPUSCULAR VOLUME 94 fl (80-97); PLATELET COUNT 258 10^3/uL (150-450); RED BLOOD COUNT 3.84 10^6/uL (4.35-5.55); RED CELL DISTRIBUTION WIDTH 13.5 % (11.5-14.0); WHITE BLOOD COUNT 9.7 10^3/uL (4.0-10.5)
[2019-02-17 04:27] LABS: ANION GAP 8 (5-19); BLOOD UREA NITROGEN 12 mg/dL (7-20); CALCIUM 8.6 mg/dL (8.4-10.2); CARBON DIOXIDE 27 mmol/L (22-30); CHLORIDE 105 mmol/L (98-107); GLUCOSE 122 mg/dL (75-110); POTASSIUM 4.5 mmol/L (3.6-5.0); SODIUM 139.6 mmol/L (137-145)
[2019-02-17] MEDS ORDERED: PANTOPRAZOLE SODIUM 20 MG TABLET.DR PO SCH (06:00)
--- NOTE | 2019-02-17 10:09 | PDOC PROGRESS REPORT ---
Subjective Progress Note for:: 02/17/19 Subjective:: Feels better. Heartburn has improved. Reason For Visit: UPPER GI BLEED, HTN, DM2 Physical Exam Vital Signs: Temp Pulse Resp BP Pulse Ox 97.9 F 76 17 122/82 98 02/17/19 00:00 02/17/19 02:00 02/17/19 00:00 02/17/19 00:00 02/17/19 00:00 Intake & Output 02/16/19 02/17/19 02/18/19 06:59 06:59 06:59 Intake Total 1930 937 Output Total 3350 1650 Balance -1420 -713 Weight 103.1 kg 91.8 kg General appearance: PRESENT: no acute distress Respiratory exam: PRESENT: clear to auscultation mackenzie Cardiovascular exam: PRESENT: RRR GI/Abdominal exam: PRESENT: other - Soft, nondistended, nontender to palpation. Results Laboratory Results: 02/17/19 03:54 02/17/19 03:54 02/17/19 02/17/19 03:54 03:54 WBC 9.7 RBC 3.84 L Hgb 12.2 L Hct 36.0 L MCV 94 MCH 31.8 MCHC 34.0 RDW 13.5 Plt Count 258 Sodium 139.6 Potassium 4.5 Chloride 105 Carbon Dioxide 27 Anion Gap 8 BUN 12 Creatinine 0.70 Est GFR ( Amer) > 60 Est GFR (Non-Af Amer) > 60 Glucose 122 H Calcium 8.6 Assessment & Plan - Diagnosis (1) Esophagitis Is this a current diagnosis for this admission?: Yes Plan: Symptomatically improved. No signs or symptoms of continued gastrointestinal bleed. Await biopsy reports. Continue proton pump inhibitor.
[2019-02-17] MEDS: INSULIN LISPRO 100 UNIT/ML 3 ML VIAL SUBCUT SCH ×4 (11:05→21:50)
[2019-02-17] MEDS: ATENOLOL 50 MG TABLET PO SCH ×2 (11:52→19:17)
[2019-02-17] MEDS: NICOTINE 14 MG/24 HR PATCH.TD24 TD SCH (11:52)
[2019-02-17] MEDS: OXYBUTYNIN CHLORIDE 5 MG TABLET PO SCH ×2 (11:53→19:17)
[2019-02-17] MEDS: LISINOPRIL 10 MG TABLET PO SCH (11:53)
--- NOTE | 2019-02-17 16:06 | PDOC TRANSFER SUMMARY ---
General - Admit/Disc Date/PCP Admission Date/Primary Care Provider: 02/16/19 13:16 Discharge Date: 02/17/19 - Additional Information Resuscitation Status: Full Code Discharge Diet: Cardiac, Diabetic Discharge Activity: Activity As Tolerated, Balance Activity w/Rest, Slowly Increase Activity Prescriptions: Atenolol [Tenormin 50 mg Tablet] 25 mg PO BID #60 tablet Pantoprazole Sodium [Protonix [address] Tablet] 40 mg PO Q6AM #30 tablet. Home Medications: Atenolol [Tenormin] 25 mg PO QPM 02/14/19 Glipizide [Glucotrol 5 mg Tablet] 10 mg PO DAILY 02/14/19 Lisinopril [Prinivil 10 mg Tablet] 10 mg PO DAILY 02/14/19 Metformin HCl 1,000 mg PO BIDBS 02/14/19 Nicotine [Nicoderm 14 mg/24 Hr Transdermal Patch] 1 patch TD DAILY 02/14/19 Oxybutynin Chloride [Oxybutynin Chloride ER] 10 mg PO BID 02/14/19 Potassium Chloride [Klor-Con 10 Meq Capsule ER] 10 meq PO DAILY 02/14/19 Acetaminophen [Tylenol 325 mg Tablet] 325 mg PO Q4HP PRN tablet 02/16/19 Atenolol [Tenormin 50 mg Tablet] 25 mg PO BID #60 tablet 02/16/19 Pantoprazole Sodium [Protonix [address] Tablet] 40 mg PO Q6AM #30 tablet. 02/17/19 History of Present Illness Admission Date/PCP: 02/16/19 13:16 Patient complains of: vomiting History of Present Illness: RUBÉN PACKER is a 73 year old male with the past medical history significant for CVA, DM 2, hypertension, and recent TURP who presented from [facility] with report of onset of coffee-ground emesis this morning. Patient reports that he has had heartburn and indigestion for approximately 2 days; he is feeling somewhat better following his episode of vomiting this morning. The patient takes a daily baby aspirin and Mobic 15 mg. He was also recently started on Plavix following a TIA. Evaluation in the emergency department reveals Mild tachycardia (HR 115) and otherwise normal vital signs, leukocytosis (WBCs 14.6), hemoglobin 14, normal coags, and a chemistry remarkable only for potassium of 5.4. He has a normal creatinine and BUN. Occult stool was positive. EKG demonstrates sinus tachycardia. He is referred to the hospitalist service for admission and management of presumed upper GI bleed related to NSAIDs and Plavix use. Hospital Course Hospital Course: RUBÉN PACKER is a 73 year old male with the past medical history significant for CVA, DM 2, PAF, hypertension, and recent TURP who presented from [facility] (short term rehab) was admitted 02/14/19 for Upper GI bleed. The patient reported an episode of coffee ground emesis. Hgb upon admission was normal (Hgb 14). No recurrence of hematemesis. The patient was placed on clear liquid diet and a protonix gtt. There was concern for follow up when the patient mentioned that he was permanently homeless (currently residing at [facility] for short-term rehab). As a result, surgery agreed to perform EGD during hospitalization. It revealed a small, sliding hiatal hernia. Additionally, severe ulcerations were found at the distal esophagus beginning at the GE junction and extending up to approximately 25 cm. Biopsy was taken at the dis anam esophagus as well as approximately 30 cm in the mid esophagus. Pathology reports indicate there is no malignancy or Helicobacter present, only reactive squamous mucosa. The patient's Hgb remained stable throughout his hospitalization, dropping from 14-->12, likely hemodilution. On hospital day #3, the patient was deemed safe for discharge. His vital signs and laboratory studies were all WNL. The patient will require follow-up with a opthalmic tech within 2 weeks of discharge. Additionally, the patient will require daily Protonix. He is provided a prescription at the time of discharge. For any further information regarding this patient's hospitalization, please refer to the EMR. Physical Exam Vital Signs: Temp Pulse Resp BP Pulse Ox 97.5 F 97 18 122/82 100 02/17/19 12:00 02/17/19 12:00 02/17/19 12:00 02/17/19 00:00 02/17/19 12:00 Intake & Output 02/16/19 02/17/19 02/18/19 06:59 06:59 06:59 Intake Total 1930 937 Output Total 3350 1650 Balance -1420 -713 Weight 103.1 kg 91.8 kg General appearance: PRESENT: no acute distress, well-developed, well-nourished Head exam: PRESENT: atraumatic, normocephalic Eye exam: PRESENT: conjunctiva pink, EOMI, PERRLA. ABSENT: scleral icterus Ear exam: PRESENT: normal external ear exam Mouth exam: PRESENT: moist, tongue midline Neck exam: ABSENT: carotid bruit, JVD, lymphadenopathy, thyromegaly Respiratory exam: PRESENT: clear to auscultation mackenzie. ABSENT: rales, rhonchi, wheezes Cardiovascular exam: PRESENT: RRR. ABSENT: diastolic murmur, rubs, systolic murmur Pulses: PRESENT: normal radial pulses, normal dorsalis pedis pul Vascular exam: PRESENT: normal capillary refill GI/Abdominal exam: PRESENT: normal bowel sounds, soft. ABSENT: distended, guarding, mass, organolmegaly, rebound, tenderness Rectal exam: PRESENT: deferred Extremities exam: PRESENT: full ROM, +1 edema, other - REQUIRES 1 PERSON ASSIST AND WALKER TO AMBULATE. ABSENT: calf tenderness, clubbing, pedal edema Neurological exam: PRESENT: alert, awake, oriented to person, oriented to place, oriented to time, oriented to situation. ABSENT: normal gait Psychiatric exam: PRESENT: appropriate affect, normal mood Skin exam: PRESENT: dry, intact, warm. ABSENT: cyanosis, rash Results Laboratory Results: 02/17/19 03:54 02/17/19 03:54 02/17/19 02/17/19 03:54 03:54 WBC 9.7 RBC 3.84 L Hgb 12.2 L Hct 36.0 L MCV 94 MCH 31.8 MCHC 34.0 RDW 13.5 Plt Count 258 Sodium 139.6 Potassium 4.5 Chloride 105 Carbon Dioxide 27 Anion Gap 8 BUN 12 Creatinine 0.70 Est GFR ( Amer) > 60 Est GFR (Non-Af Amer) > 60 Glucose 122 H Calcium 8.6 Qualifiers - * PATIENT BEING DISCHARGED WITH ANY OF THE FOLLOWING DIAGNOSIS: No Acute Heart Failure - Is this a Heart Failure Patient?: No
--- NOTE | 2019-02-17 16:07 | Progress Note Acknowledgement ---
Progress Note Acknowledgement Progess Note Acknowledgement: I, the undersigned member of the medical staff with appropriate privileges and with supervisory authority over [ YANET VALDES ], a [facility] practice allied health professional, acknowledge that I have reviewed the progress notes entered on this patient, and in my professional judgment believe that the assessment made and/or any care evidenced was appropriate
[2019-02-18] MEDS ORDERED: PANTOPRAZOLE SODIUM 20 MG TABLET.DR PO SCH (06:00)
--- NOTE | 2019-02-18 10:01 | PDOC PROGRESS REPORT ---
Subjective Progress Note for:: 02/18/19 Subjective:: feels better. No abdominal pains Reason For Visit: UPPER GI BLEED, HTN, DM2 Physical Exam Vital Signs: Temp Pulse Resp BP Pulse Ox 97.4 F 81 17 116/68 97 02/17/19 23:46 02/18/19 02:00 02/17/19 23:46 02/17/19 23:46 02/17/19 23:46 Intake & Output 02/17/19 02/18/19 02/19/19 06:59 06:59 06:59 Intake Total 937 840 Output Total 1650 1350 Balance -713 -510 Weight 91.8 kg 91.8 kg Exam: abdomen is soft and non tender Results Laboratory Results: 02/17/19 03:54 02/17/19 03:54 Assessment & Plan - Time Time Spent with patient: 15-24 minutes - Plan Summary Plan Summary: Suggest PPI next 2 weeks for Esophagitis Will sign off.
[2019-02-18] MEDS: NICOTINE 14 MG/24 HR PATCH.TD24 TD SCH (11:27)
[2019-02-18] MEDS: LISINOPRIL 10 MG TABLET PO SCH (11:27)
[2019-02-18] MEDS: ATENOLOL 50 MG TABLET PO SCH (11:27)
[2019-02-18] MEDS: OXYBUTYNIN CHLORIDE 5 MG TABLET PO SCH (11:27)
[2019-02-18] MEDS: INSULIN LISPRO 100 UNIT/ML 3 ML VIAL SUBCUT SCH ×3 (11:34→17:40)
[2019-02-18 16:59] VITALS: BP 130/65
== END 2019-02-18 17:10 | DRG 382 ==
LOC: ER 12:35 → INTOOBSV 15:10 → EH 15:10 → 4N 16:40 → OBSVTOIN 02-16 13:16
PROVIDERS: ADMIT Internal Medicine; ATTEND Internal Medicine
PROC: 0DB78ZX Excision of Stomach, Pylorus, Via Natural or Artificial Opening Endoscopic, Diagnostic (ICD-10-PCS; 2019-02-16)
PROC: 0DB28ZX Excision of Middle Esophagus, Via Natural or Artificial Opening Endoscopic, Diagnostic (ICD-10-PCS; 2019-02-16)
PROC: 0DB38ZX Excision of Lower Esophagus, Via Natural or Artificial Opening Endoscopic, Diagnostic (ICD-10-PCS; principal; 2019-02-16 13:00)
DX: K22.70 Barrett's esophagus without dysplasia (principal); K44.9 Diaphragmatic hernia without obstruction or gangrene; K92.2 Gastrointestinal hemorrhage, unspecified; E11.9 Type 2 diabetes mellitus without complications; I10 Essential (primary) hypertension; E78.5 Hyperlipidemia, unspecified; F17.200 Nicotine dependence, unspecified, uncomplicated; K21.0 Gastro-esophageal reflux disease with esophagitis; Z79.899 Other long term (current) drug therapy; Z86.73 Personal history of transient ischemic attack (TIA), and cerebral infarction without residual deficits; Z79.82 Long term (current) use of aspirin
CPT/HCPCS: 00731; 36415; 43239; 80048; 80053; 81001; 82962; 83690; 85025; 85027; 85610; 85730; 86850; 86900; 86901; 88305; 88312; 88342; 93005; 93010; 96365; 99285; G0378; J1815; J2250; J2704; J3490; J7030; J7050; S0164

== ENCOUNTER 2019-02-19 11:33 | Inpatient (IN) | payer MEDICARE ==
[2019-02-19 12:06] LABS: ABSOLUTE BASOPHILS # (AUTO) 0.1 10^3/uL (0.0-0.2); ABSOLUTE EOSINOPHILS # (AUTO) 0.1 10^3/uL (0.0-0.6); ABSOLUTE LYMPHOCYTES (AUTO) 1.2 10^3/uL (0.5-4.7); ABSOLUTE MONOCYTES (AUTO) 0.8 10^3/uL (0.1-1.4); ABSOLUTE NEUT (AUTO) 16.6 10^3/uL (1.7-8.2); BASOPHILS % (AUTO) 0.7 % (0-2); EOSINOPHILS % (AUTO) 0.5 % (0-6); HEMATOCRIT 38.4 % (37.9-51.0); HEMOGLOBIN 12.8 g/dL (13.5-17.0); LYMPHOCYTES % (AUTO) 6.5 % (13-45); MEAN CORPUSCULAR HEMOGLOBIN 31.5 pg (27.0-33.4); MEAN CORPUSCULAR HGB CONC 33.4 g/dL (32.0-36.0); MEAN CORPUSCULAR VOLUME 94 fl (80-97); MONOCYTES % (AUTO) 4.4 % (3-13); PLATELET COUNT 300 10^3/uL (150-450); RED BLOOD COUNT 4.07 10^6/uL (4.35-5.55); RED CELL DISTRIBUTION WIDTH 13.6 % (11.5-14.0); SEGMENTED NEUTROPHILS % (AUTO) 87.9 % (42-78); TOTAL CELLS COUNTED % (AUTO) 100 %; WHITE BLOOD COUNT 18.9 10^3/uL (4.0-10.5)
[2019-02-19 12:36] LABS: ALANINE AMINOTRANSFERASE 28 U/L (21-72); ALBUMIN 3.7 g/dL (3.5-5.0); ALKALINE PHOSPHATASE 87 U/L (38-126); ANION GAP 11 (5-19); ASPARTATE AMINO TRANSFERASE 31 U/L (17-59); BILIRUBIN,DIRECT 0.3 mg/dL (0.0-0.4); BILIRUBIN,TOTAL 0.4 mg/dL (0.2-1.3); BLOOD UREA NITROGEN 17 mg/dL (7-20); CALCIUM 8.7 mg/dL (8.4-10.2); CARBON DIOXIDE 24 mmol/L (22-30); CHLORIDE 101 mmol/L (98-107); GLUCOSE 277 mg/dL (75-110); POTASSIUM 5.2 mmol/L (3.6-5.0); SODIUM 135.7 mmol/L (137-145)
[2019-02-19] MEDS ORDERED: NORMAL SALINE 1000 ML 1,000 ML IV ONE ×2 (12:52→14:55)
[2019-02-19] MEDS ORDERED: PANTOPRAZOLE SODIUM 40 MG VIAL IV ONE (14:57)
--- NOTE | 2019-02-19 15:11 | ER Document Report ---
ED Dizziness/Weakness - General Chief Complaint: Low Blood Pressure Stated Complaint: DIZZINESS Time Seen by Provider: 02/19/19 14:47 Information source: Patient TRAVEL OUTSIDE OF THE [place] IN LAST 30 DAYS: No - HPI Patient complains to provider of: Dizziness, Weakness Onset: Just prior to arrival Onset/Duration: Gradual Quality of pain: No pain Notes: 73-year-old male just released from the hospital yesterday according to the notes. Presents to the ER with weakness dizziness. No chest pain or shortness of breath. No abdominal pain no vomiting. Presents with dizziness weakness presented with low blood pressure. Pressure responded to fluids. Presently his systolic blood pressures greater than 100. Patient was admitted a few days ago for a GI bleed. He says he had an upper endoscopy which showed a ulcer was so treating with medications. He has not had any further bleeding at that time. He does describe today having a black stool. No fevers no cough no abdominal pain. - Related Data Allergies/Adverse Reactions: No Known Allergies Allergy (Verified 02/14/19 16:14) Past Medical History - Social History Smoking Status: Former Smoker Frequency of alcohol use: None Drug Abuse: None Lives with: Long Term Family History: Reviewed & Not Pertinent Patient has suicidal ideation: No Patient has homicidal ideation: No - Past Medical History Cardiac Medical History: Reports: Hx Hypercholesterolemia, Hx Hypertension Denies: Hx Atrial Fibrillation, Hx Congestive Heart Failure, Hx Coronary Artery Disease, Hx Heart Attack Endocrine Medical History: Reports: Hx Diabetes Mellitus Type 2 Renal/ Medical History: Denies: Hx Peritoneal Dialysis GI Medical History: Reports: Hx Gastroesophageal Reflux Disease Musculoskeletal Medical History: Reports Hx Arthritis Past Surgical History: Reports: Hx Urinary Tract Surgery, Other - TURP Review of Systems - Review of Systems Constitutional: Malaise, Weakness, Recent illness. denies: Fever Cardiovascular: Lightheaded. denies: Chest pain, Palpitations, Heart racing Gastrointestinal: denies: Abdominal pain Physical Exam - Vital signs Vitals: Pulse Ox 94 02/19/19 11:38 - Notes Notes: PHYSICAL EXAMINATION: GENERAL: Well-appearing, well-nourished and in no acute distress. HEAD: Atraumatic, normocephalic. EYES: Pupils equal round and reactive to light, extraocular movements intact, sclera anicteric, conjunctiva are pale. ENT: nares patent, oropharynx clear without exudates. Moist mucous membranes. NECK: Normal range of motion, supple without lymphadenopathy LUNGS: Breath sounds clear to auscultation bilaterally and equal. No wheezes rales or rhonchi. HEART: Regular rate and rhythm without murmurs ABDOMEN: Soft, nontender, normoactive bowel sounds. No guarding, no rebound. No masses appreciated. EXTREMITIES: Normal range of motion, no pitting or edema. No cyanosis. NEUROLOGICAL: No focal neurological deficits. Moves all extremities spontaneously and on command. PSYCH: Normal mood, normal affect. SKIN: Warm, Dry, normal turgor, no rashes or lesions noted. Course - Re-evaluation Re-evalutation: Patient is stable for at this time. His blood pressure has maintained above 100 systolic. His troponin is bumped at 0.18. He has no cardiac complaints at this time. He is on Plavix currently. He says he is taking it. - Vital Signs Vital signs: Temp Pulse Resp BP Pulse Ox 97.8 F 18 101/62 94 02/19/19 11:57 02/19/19 13:15 02/19/19 13:15 02/19/19 13:15 - Laboratory Result Diagrams: 02/19/19 17:00 02/19/19 17:00 Laboratory results interpreted by me: 02/19/19 02/19/19 02/19/19 11:52 11:52 16:10 WBC 18.9 H RBC 4.07 L Hgb 12.8 L Hct Seg Neutrophils % 87.9 H Lymphocytes % 6.5 L Absolute Neutrophils 16.6 H Sodium 135.7 L Potassium 5.2 H Est GFR (Non-Af Amer) 59 L Glucose 277 H Calcium Total Protein Albumin Lipase Urine Protein >=500 H Urine Glucose (UA) 50 H Urine Blood LARGE H Ur Leukocyte Esterase MODERATE H 02/19/19 02/19/19 17:00 17:00 WBC 17.3 H RBC 3.82 L Hgb 12.1 L Hct 36.1 L Seg Neutrophils % 86.3 H Lymphocytes % 8.0 L Absolute Neutrophils 14.9 H Sodium Potassium 5.3 H Est GFR (Non-Af Amer) Glucose 209 H Calcium 8.3 L Total Protein 6.2 L Albumin 3.4 L Lipase 12.5 L Urine Protein Urine Glucose (UA) Urine Blood Ur Leukocyte Esterase - Diagnostic Test Radiology reviewed: Reports reviewed - EKG Interpretation by Me EKG shows normal: Sinus rhythm Rate: Normal, Tachycardia Rhythm: NSR - Transfer of Care Notes: 02/19/19 18:02 There are some nonspecific ST-T changes. This is not a STEMI. 02/19/19 18:02 I have spoke to Dr. lawson will see the patient 02/19/19 18:02 Discharge - Discharge Clinical Impression: Sepsis associated hypotension, Elevated troponin, Hypotension Condition: Serious Disposition: ADMITTED INPATIENT Admitting Provider: Latonya (Hospitalist) Unit Admitted: Telemetry
--- NOTE | 2019-02-19 15:42 | RADIOLOGY REPORT (SQ) ---
EXAM DESCRIPTION: CHEST SINGLE VIEW COMPLETED DATE/TIME: 02/19/2019 3:29 pm REASON FOR STUDY: hypotension COMPARISON: None. EXAM PARAMETERS: NUMBER OF VIEWS: One view. TECHNIQUE: Single frontal radiographic view of the chest acquired. RADIATION DOSE: NA LIMITATIONS: Lordotic portable chest film, large patient FINDINGS: LUNGS AND PLEURA: No opacities, masses or pneumothorax. No pleural effusion. MEDIASTINUM AND HILAR STRUCTURES: No masses. Contour normal. HEART AND VASCULAR STRUCTURES: Mild cardiomegaly BONES: No acute findings. HARDWARE: None in the chest. OTHER: No other significant finding. IMPRESSION: NO ACUTE RADIOGRAPHIC FINDING IN THE CHEST. TECHNICAL DOCUMENTATION: JOB ID: [id number] [employer]- All Rights Reserved Reading location - IP/workstation name: [email or web address]
[2019-02-19 16:33] LABS: APPEARANCE,URINE TURBID; BILIRUBIN,URINE NEGATIVE (NEGATIVE); COLOR,URINE AMBER; GLUCOSE, URINE 50 mg/dL (NEGATIVE); KETONES,URINE NEGATIVE (NEGATIVE); LEUKOCYTE ESTERASE,URINE MODERATE (NEGATIVE); NITRITE,URINE NEGATIVE (NEGATIVE); PROTEIN,URINE >=500 mg/dL (NEGATIVE); URINE SPECIFIC GRAVITY 1.018; UROBILINOGEN,URINE NEGATIVE mg/dL (<2.0)
[2019-02-19] MEDS ORDERED: CEFTRIAXONE 2 GM/D5W RTU 2 GM/50 ML RTUPB IV ONE (16:56)
[2019-02-19 17:20] LABS: ABSOLUTE LYMPHOCYTES (AUTO) 1.4 10^3/uL (0.5-4.7); ABSOLUTE MONOCYTES (AUTO) 0.9 10^3/uL (0.1-1.4); ABSOLUTE NEUT (AUTO) 14.9 10^3/uL (1.7-8.2); BASOPHILS % (AUTO) 0.3 % (0-2); EOSINOPHILS % (AUTO) 0.2 % (0-6); HEMATOCRIT 36.1 % (37.9-51.0); HEMOGLOBIN 12.1 g/dL (13.5-17.0); MEAN CORPUSCULAR HEMOGLOBIN 31.8 pg (27.0-33.4); MEAN CORPUSCULAR HGB CONC 33.6 g/dL (32.0-36.0); MEAN CORPUSCULAR VOLUME 95 fl (80-97); MONOCYTES % (AUTO) 5.2 % (3-13); PLATELET COUNT 246 10^3/uL (150-450); RED BLOOD COUNT 3.82 10^6/uL (4.35-5.55); RED CELL DISTRIBUTION WIDTH 13.9 % (11.5-14.0); SEGMENTED NEUTROPHILS % (AUTO) 86.3 % (42-78); TOTAL CELLS COUNTED % (AUTO) 100 %; WHITE BLOOD COUNT 17.3 10^3/uL (4.0-10.5)
[2019-02-19 17:38] LABS: ALANINE AMINOTRANSFERASE 27 U/L (21-72); ALBUMIN 3.4 g/dL (3.5-5.0); ALKALINE PHOSPHATASE 76 U/L (38-126); ANION GAP 11 (5-19); ASPARTATE AMINO TRANSFERASE 17 U/L (17-59); BILIRUBIN,DIRECT 0.2 mg/dL (0.0-0.4); BILIRUBIN,TOTAL 0.3 mg/dL (0.2-1.3); BLOOD UREA NITROGEN 19 mg/dL (7-20); CALCIUM 8.3 mg/dL (8.4-10.2); CARBON DIOXIDE 22 mmol/L (22-30); CHLORIDE 105 mmol/L (98-107); GLUCOSE 209 mg/dL (75-110); INTERNATIONAL RATION (INR) 1.19; LIPASE 12.5 U/L (23-300); PARTIAL THROMBOPLASTIN TIME 28.4 SEC (23.5-35.8); POTASSIUM 5.3 mmol/L (3.6-5.0); PROTHROMBIN TIME 15.2 SEC (11.4-15.4); TOTAL PROTEIN 6.2 g/dL (6.3-8.2)
[2019-02-19] MEDS ORDERED: ASPIRIN 81 MG TABLET, CHEWABLE PO ONE (17:59)
[2019-02-19] MEDS ORDERED: PROMETHAZINE HCL INJ 25 MG/1 ML VIAL IV PRN (18:27)
[2019-02-19] MEDS ORDERED: MAG HYDROX/AL HYDROX/SIMETH SUSP 30 ML UDCUP PO PRN (18:27)
[2019-02-19] MEDS ORDERED: ACETAMINOPHEN 650 MG SUPP.RECT PR PRN (18:27)
[2019-02-19] MEDS ORDERED: ONDANSETRON HCL INJ/PF 4 MG/2 ML SDV IV PRN (18:27)
[2019-02-19] MEDS ORDERED: DEXTROSE 40% GEL 15 GM TUBE PO PRN ×2 (18:47)
[2019-02-19] MEDS ORDERED: GLUCAGON,HUMAN RECOMB 1 MG INJ IM PRN (18:47)
[2019-02-19] MEDS ORDERED: DEXTROSE 50%-WATER 25 GM/50 ML DISP.SYRIN IV PRN ×2 (18:47)
[2019-02-19] MEDS: PANTOPRAZOLE SODIUM 40 MG VIAL IV SCH (22:49)
[2019-02-19] MEDS: ATENOLOL 50 MG TABLET PO SCH (22:49)
[2019-02-19] MEDS: INSULIN LISPRO 100 UNIT/ML 3 ML VIAL SUBCUT SCH (23:00)
--- NOTE | 2019-02-19 23:03 | EKG REPORT ---
SEVERITY:- ABNORMAL ECG - A FLUTTER VS ECTOPIC ATRIAL TACHYCARDIA WITH 2:1 CONDUCTION IVCD, CONSIDER ATYPICAL RBBB ST DEPRESSION, CONSIDER ISCHEMIA, DIFFUSE LDS : Confirmed by: Sivakumar Mota 19-Feb-2019 23:02:26
[2019-02-19] MEDS: NORMAL SALINE 1000 ML 1,000 ML IV PRN (23:07)
--- NOTE | 2019-02-20 05:20 | ADVANCED CARE ---
Attendance: The patient Resuscitation Status: Do Not Resuscitate Discussion: Patient returns after 3 days at [facility]. He recently had a GI bleed and now presents with infection. He has been feeling poorly. We reviewed his CODE STATUS. At this time he wishes to be DNR. We did discuss the benefit of a healthcare proxy. He did identify his daughter Ashley has the designated decision maker. I did point out that there is a healthcare proxy blank form in the admissions packet. While he is here he should review it and give consideration to completing it. Care Planning Goals: He does wish to get back home but it is likely that post this discharge, since it is primarily for cystitis, he will return to [facility]. Document(s) Completed: Generic healthcare proxy form in admission packet reviewed but not completed at this time Time Spent: 18 minutes
--- NOTE | 2019-02-20 05:41 | PDOC H&P ---
History of Present Illness Admission Date/PCP: 02/19/19 18:20 Patient complains of: Feeling poorly. Diaphoresis, chest discomfort, short of breath and decreased appetite History of Present Illness: RUBÉN PACKER is a 73 year old male Past Medical History Cardiac Medical History: Reports: Hyperlipidema, Hypertension Denies: Atrial Fibrillation, Congestive Heart Failure, Coronary Artery Disease, Myocardial Infarction Pulmonary Medical History: Denies: Asthma, Chronic Obstructive Pulmonary Disease (COPD), Respiratory Failure, Sleep Apnea EENT Medical History: Denies: Ears, Nose, Throat Neurological Medical History: Reports: Ischemic CVA Endocrine Medical History: Reports: Diabetes Mellitus Type 2 Renal/ Medical History: Reports: Other - Recent transurethral resection of the prostate approximately 2 weeks ago Malignancy Medical History: Reports: None GI Medical History: Reports: Gastroesophageal Reflux Disease Musculoskeltal Medical History: Reports: Arthritis Skin Medical History: Reports: None Psychiatric Medical History: Reports: Tobacco Dependency Denies: Dementia, Depression, General Anxiety Disorder Traumatic Medical History: Reports: None Hematology: Reports: Anemia - From recent GI bleed Infectious Medical History: Reports: None Past Surgical History Past Surgical History: Reports: Other - TURP Social History Information Source: Patient Lives with: Intermediate Smoking Status: Former Smoker - No tobacco for the last 2 months however before that cigar daily Frequency of Alcohol Use: None Hx Recreational Drug Use: No Hx Prescription Drug Abuse: No - Advance Directive Resuscitation Status: Do Not Resuscitate Surrogate healthcare decision maker:: His daughter Ashley Family History Family History: Reviewed & Not Pertinent Parental Family History Reviewed: Yes Children Family History Reviewed: Yes Sibling(s) Family History Reviewed.: Yes Medication/Allergy Home Medications: Glipizide [Glucotrol 5 mg Tablet] 10 mg PO DAILY 02/14/19 Lisinopril [Prinivil 10 mg Tablet] 10 mg PO DAILY 02/14/19 Metformin HCl 1,000 mg PO BIDBS 02/14/19 Nicotine [Nicoderm 14 mg/24 Hr Transdermal Patch] 1 patch TD DAILY 02/14/19 Oxybutynin Chloride [Oxybutynin Chloride ER] 10 mg PO BID 02/14/19 Potassium Chloride [Klor-Con 10 Meq Capsule ER] 10 meq PO DAILY 02/14/19 Atenolol [Tenormin 50 mg Tablet] 25 mg PO BID #60 tablet 02/16/19 Pantoprazole Sodium [Protonix [address] Tablet] 40 mg PO Q6AM #30 tablet.dr 02/17/19 Acetaminophen [Tylenol 325 mg Tablet] 325 mg PO Q4HP PRN 02/19/19 Allergies/Adverse Reactions: No Known Allergies Allergy (Verified 02/14/19 16:14) Review of Systems Constitutional: PRESENT: anorexia, weakness, other - Diaphoresis Eyes: ABSENT: visual disturbances Ears: ABSENT: hearing changes Nose, Mouth, and Throat: ABSENT: headache(s), mouth pain, sore throat Cardiovascular: PRESENT: chest pain. ABSENT: edema, palpitations Respiratory: ABSENT: cough, dyspnea, sputum Gastrointestinal: PRESENT: other - Dark stool. ABSENT: abdominal pain, coffee ground emesis, dysphagia, heartburn, nausea, vomiting Genitourinary: PRESENT: difficulty urinating - Had difficulty urinating when Andrade catheter removed. Andrade catheter is now back in place., hematuria Musculoskeletal: PRESENT: muscle weakness - Nonfocal generalized. ABSENT: deformity, joint swelling Integumentary: ABSENT: lesions, pruritus, rash Neurological: ABSENT: abnormal speech, confusion, memory loss, syncope, tremor(s), vertigo Psychiatric: ABSENT: anxiety, depression, hallucinations Endocrine: ABSENT: cold intolerance, heat intolerance, polydipsia, polyphagia, polyuria Hematologic/Lymphatic: PRESENT: easy bleeding - Recent GI bleed, recurrent he maturia. ABSENT: easy bruising Physical Exam Vital Signs: Temp Pulse Resp BP Pulse Ox 97.8 F 18 101/62 94 02/19/19 11:57 02/19/19 13:15 02/19/19 13:15 02/19/19 13:15 Intake & Output 02/18/19 02/19/19 02/20/19 06:59 06:59 06:59 Intake Total 1000 Balance 1000 Weight 103.3 kg General appearance: PRESENT: cooperative, mild distress, well-developed Head exam: PRESENT: atraumatic, normocephalic Eye exam: PRESENT: conjunctiva pale, EOMI. ABSENT: scleral icterus Ear exam: PRESENT: normal external ear exam Mouth exam: PRESENT: dry mucosa, tongue midline Neck exam: ABSENT: carotid bruit, JVD, lymphadenopathy Respiratory exam: PRESENT: clear to auscultation mackenzie, symmetrical, unlabored. ABSENT: accessory muscle use, rales, rhonchi, tachypnea, wheezes Cardiovascular exam: PRESENT: RRR, +S1, +S2. ABSENT: diastolic murmur, systolic murmur, other Pulses: PRESENT: normal radial pulses, normal dorsalis pedis pul GI/Abdominal exam: PRESENT: normal bowel sounds, soft. ABSENT: distended, tenderness Rectal exam: PRESENT: deferred, other - See emergency department note for rectal exam Gentrourinary exam: PRESENT: indwelling catheter Extremities exam: ABSENT: calf tenderness, joint swelling, pedal edema Musculoskeletal exam: PRESENT: normal inspection Neurological exam: PRESENT: alert, awake, oriented to person, oriented to place, oriented to time, oriented to situation, CN II-XII grossly intact. ABSENT: motor sensory deficit Psychiatric exam: PRESENT: appropriate affect, normal mood. ABSENT: agitated, anxious Focused psych exam: ABSENT: delusional, restlessness Skin exam: PRESENT: dry, pallor, warm. ABSENT: rash Results Laboratory Results: 02/19/19 17:00 02/19/19 17:00 02/19/19 02/19/19 02/19/19 11:52 11:52 16:10 WBC 18.9 H RBC 4.07 L Hgb 12.8 L Hct 38.4 MCV 94 MCH 31.5 MCHC 33.4 RDW 13.6 Plt Count 300 Seg Neutrophils % 87.9 H Lymphocytes % 6.5 L Monocytes % 4.4 Eosinophils % 0.5 Basophils % 0.7 Absolute Neutrophils 16.6 H Absolute Lymphocytes 1.2 Absolute Monocytes 0.8 Absolute Eosinophils 0.1 Absolute Basophils 0.1 Sodium 135.7 L Potassium 5.2 H Chloride 101 Carbon Dioxide 24 Anion Gap 11 BUN 17 Creatinine 1.21 Est GFR ( Amer) > 60 Est GFR (Non-Af Amer) 59 L Glucose 277 H Lactic Acid Calcium 8.7 Total Bilirubin 0.4 AST 31 ALT 28 Alkaline Phosphatase 87 Total Protein 7.0 Albumin 3.7 Lipase Urine Color KIANA Urine Appearance TURBID Urine pH 5.0 Ur Specific [place] 1.018 Urine Protein >=500 H Urine Glucose (UA) 50 H Urine Ketones NEGATIVE Urine Blood LARGE H Urine Nitrite NEGATIVE Ur Leukocyte Esterase MODERATE H Urine WBC (Auto) >182 Urine RBC (Auto) >182 02/19/19 02/19/19 02/19/19 17:00 17:00 17:00 WBC 17.3 H RBC 3.82 L Hgb 12.1 L Hct 36.1 L MCV 95 MCH 31.8 MCHC 33.6 RDW 13.9 Plt Count 246 Seg Neutrophils % 86.3 H Lymphocytes % 8.0 L Monocytes % 5.2 Eosinophils % 0.2 Basophils % 0.3 Absolute Neutrophils 14.9 H Absolute Lymphocytes 1.4 Absolute Monocytes 0.9 Absolute Eosinophils 0.0 Absolute Basophils 0.0 Sodium 138.0 Potassium 5.3 H Chloride 105 Carbon Dioxide 22 Anion Gap 11 BUN 19 Creatinine 1.19 Est GFR ( Amer) > 60 Est GFR (Non-Af Amer) > 60 Glucose 209 H Lactic Acid 1.9 Calcium 8.3 L Total Bilirubin 0.3 AST 17 ALT 27 Alkaline Phosphatase 76 Total Protein 6.2 L Albumin 3.4 L Lipase 12.5 L Urine Color Urine Appearance Urine pH Ur Specific [place] Urine Protein Urine Glucose (UA) Urine Ketones Urine Blood Urine Nitrite Ur Leukocyte Esterase Urine WBC (Auto) Urine RBC (Auto) 02/19/19 17:00 Troponin I 0.181 Impressions: Chest X-Ray 02/19/19 15:03 IMPRESSION: NO ACUTE RADIOGRAPHIC FINDING IN THE CHEST. Assessment and Plan - Diagnosis (1) Acute cystitis with hematuria Is this a current diagnosis for this admission?: Yes Plan: 02/19/2019-the patient presents feeling weak with some diaphoresis, poor appetite and general sense of malaise. His urinalysis had large amount of white cells, red cells and was positive for leukocyte esterase. A Andrade catheter was inserted as he recently had a TURP and was experiencing urinary retention (see below). He will be on ceftriaxone until culture results are available. His white blood cell count was elevated and we will monitor daily. (2) DM type 2 (diabetes mellitus, type 2) Qualifiers: Diabetes mellitus mcfp insulin use: without water pump installer use Diabetes mellitus complication status: without complication Qualified Code(s): E11.9 - Type 2 diabetes mellitus without complications Is this a current diagnosis for this admission?: Yes Plan: 02/19/2019-because of his poor appetite I have started his metformin but held his lipids. I will use insulin sliding scale in addition. If his appetite stabilizes and based on his Accu-Cheks I will resume his glipizide. (3) Hyperkalemia Is this a current diagnosis for this admission?: Yes Plan: 02/19/2019-he was discharged on potassium chloride. His potassium is elevated at 5.3. I will hold the potassium chloride supplement. We will continue to monitor his electrolytes. If his potassium increases will administer Kayexalate. He is also getting IV fluids. (4) Hypertension Qualifiers: Hypertension type: essential hypertension Qualified Code(s): I10 - Essential (primary) hypertension Is this a current diagnosis for this admission?: Yes Plan: The patient was hypertensive on admission but responded to fluids. We will monitor his blood pressure. I did resume his atenolol and lisinopril however there are parameters to hold for low blood pressure. He will monitor his intake and output and administer fluids as appropriate. (5) Upper GI bleed Is this a current diagnosis for this admission?: Yes Plan: 02/19/2019-he did recently have an upper GI bleed and so we will continue to monitor his hemoglobin. Will remain on proton pump inhibitor therapy. He did have an occult blood stool that was negative but there was hematuria. He also recently had a transurethral resection of prostate. I will hold anticoagulation initially. If his hemoglobin is stable I will initiate DVT prophylaxis. He will have DOREEN stockings in place. (6) Urinary retention Is this a current diagnosis for this admission?: Yes Plan: 02/19/2019-upon his last admission to the hospital for the upper GI bleed, the patient had a Andrade catheter that was in place after his transurethral resection of the prostate. He was discharged on oxybutynin. I will continue his oxybutynin at this time. We will try to remove the Andrade catheter as soon as possible.
[2019-02-20] MEDS ORDERED: NICOTINE 14 MG/24 HR PATCH.TD24 TD PRN (05:44)
[2019-02-20 06:17] LABS: ABSOLUTE LYMPHOCYTES (AUTO) 1.5 10^3/uL (0.5-4.7); ABSOLUTE MONOCYTES (AUTO) 0.5 10^3/uL (0.1-1.4); ABSOLUTE NEUT (AUTO) 15.3 10^3/uL (1.7-8.2); BASOPHILS % (AUTO) 0.1 % (0-2); EOSINOPHILS % (AUTO) 0.1 % (0-6); HEMATOCRIT 35.6 % (37.9-51.0); HEMOGLOBIN 11.8 g/dL (13.5-17.0); LYMPHOCYTES % (AUTO) 8.8 % (13-45); MEAN CORPUSCULAR HEMOGLOBIN 31.6 pg (27.0-33.4); MEAN CORPUSCULAR HGB CONC 33.2 g/dL (32.0-36.0); MEAN CORPUSCULAR VOLUME 95 fl (80-97); PLATELET COUNT 245 10^3/uL (150-450); RED BLOOD COUNT 3.74 10^6/uL (4.35-5.55); RED CELL DISTRIBUTION WIDTH 13.9 % (11.5-14.0); TOTAL CELLS COUNTED % (AUTO) 100 %; WHITE BLOOD COUNT 17.5 10^3/uL (4.0-10.5)
[2019-02-20 06:36] LABS: ANION GAP 11 (5-19); BLOOD UREA NITROGEN 25 mg/dL (7-20); CALCIUM 8.4 mg/dL (8.4-10.2); CARBON DIOXIDE 22 mmol/L (22-30); CHLORIDE 105 mmol/L (98-107); GLUCOSE 224 mg/dL (75-110); POTASSIUM 5.7 mmol/L (3.6-5.0); SODIUM 138.4 mmol/L (137-145)
[2019-02-20] MEDS: NORMAL SALINE 1000 ML 1,000 ML IV PRN (07:09)
[2019-02-20] MEDS: METFORMIN HCL 500 MG TABLET PO SCH ×2 (07:51→17:11)
[2019-02-20] MEDS: INSULIN LISPRO 100 UNIT/ML 3 ML VIAL SUBCUT SCH ×4 (07:51→21:21)
[2019-02-20] MEDS: DOCUSATE SODIUM 100 MG CAPSULE PO SCH ×2 (09:52→17:12)
[2019-02-20] MEDS ORDERED: NICOTINE 14 MG/24 HR PATCH.TD24 TD SCH (10:00)
[2019-02-20] MEDS ORDERED: POTASSIUM CHLORIDE 10 MEQ CAPSULE.ER PO SCH (10:00)
[2019-02-20] MEDS: OXYBUTYNIN CHLORIDE 5 MG TABLET PO SCH ×2 (10:35→17:11)
[2019-02-20] MEDS: LISINOPRIL 10 MG TABLET PO SCH (10:35)
[2019-02-20] MEDS: ATENOLOL 50 MG TABLET PO SCH ×2 (10:35→21:20)
[2019-02-20] MEDS: PANTOPRAZOLE SODIUM 40 MG VIAL IV SCH ×2 (10:35→21:20)
[2019-02-20] MEDS ORDERED: SODIUM POLYSTYRENE SULFONATE 15 GM/60 ML PO ONE (16:51)
--- NOTE | 2019-02-20 16:58 | Progress Note Acknowledgement ---
Progress Note Acknowledgement Progess Note Acknowledgement: I, the undersigned member of the medical staff with appropriate privileges and with supervisory authority over [ gavin farmer ], a [facility] practice allied health professional, acknowledge that I have reviewed the progress notes entered on this patient, and in my professional judgment believe that the assessment made and/or any care evidenced was appropriate
--- NOTE | 2019-02-20 16:58 | PDOC PROGRESS REPORT ---
Subjective Progress Note for:: 02/20/19 Subjective:: 73 y.o. M with a H HTN, HLD, CVA, diabetes type 2, recent TURP (chronic indwelling catheter), GERD. He was recently hospitalized at [facility] for an upper GI bleed, all studies negative and the patient returned to [facility]. He returned approximately 48 hours later with symptoms of malaise. He is admitted to the hospitalist service for UTI. Patient seen this morning on rounds, he is resting comfortably in bed on room air. Patient states he feels "okay "today. Unable to verbalize specific complaints. The patient denies abdominal pain, suprapubic pain, lower back pain or flank pain. No symptoms of dysuria. Mild irritation at the head of the meatus, he states this is related to when the Andrade catheter was changed out in the emergency department. Reason For Visit: CYSTITIS, HYPOTENSION, RECENT GI BLEED Physical Exam Vital Signs: Temp Pulse Resp BP Pulse Ox 97.4 F 93 21 H 113/70 99 02/20/19 11:13 02/20/19 14:00 02/20/19 11:13 02/20/19 11:13 02/20/19 11:13 Intake & Output 02/19/19 02/20/19 02/21/19 06:59 06:59 06:59 Intake Total 3050 600 Output Total 50 400 Balance 3000 200 Weight 103.8 kg General appearance: PRESENT: no acute distress, well-developed, well-nourished Head exam: PRESENT: atraumatic, normocephalic Eye exam: PRESENT: conjunctiva pink, EOMI, PERRLA. ABSENT: scleral icterus Ear exam: PRESENT: normal external ear exam Mouth exam: PRESENT: moist, tongue midline Teeth exam: PRESENT: poor dentation Neck exam: ABSENT: carotid bruit, JVD, lymphadenopathy, thyromegaly Respiratory exam: PRESENT: clear to auscultation mackenzie, symmetrical, unlabored. ABSENT: rales, rhonchi, wheezes Cardiovascular exam: PRESENT: RRR. ABSENT: diastolic murmur, rubs, systolic murmur Pulses: PRESENT: normal radial pulses, normal dorsalis pedis pul Vascular exam: PRESENT: normal capillary refill GI/Abdominal exam: PRESENT: normal bowel sounds, soft. ABSENT: distended, guarding, mass, organolmegaly, rebound, tenderness Rectal exam: PRESENT: deferred Gentrourinary exam: PRESENT: indwelling catheter Extremities exam: PRESENT: full ROM. ABSENT: calf tenderness, clubbing, pedal edema Musculoskeletal exam: PRESENT: ambulatory - With assistance, full ROM Neurological exam: PRESENT: alert, awake, oriented to person, oriented to place, oriented to time, oriented to situation Psychiatric exam: PRESENT: appropriate affect, normal mood. ABSENT: homicidal ideation, suicidal ideation Skin exam: PRESENT: dry, intact, warm. ABSENT: cyanosis, rash Results Laboratory Results: 02/20/19 05:27 02/20/19 05:27 02/19/19 02/19/19 02/19/19 17:00 17:00 17:00 WBC 17.3 H RBC 3.82 L Hgb 12.1 L Hct 36.1 L MCV 95 MCH 31.8 MCHC 33.6 RDW 13.9 Plt Count 246 Seg Neutrophils % 86.3 H Lymphocytes % 8.0 L Monocytes % 5.2 Eosinophils % 0.2 Basophils % 0.3 Absolute Neutrophils 14.9 H Absolute Lymphocytes 1.4 Absolute Monocytes 0.9 Absolute Eosinophils 0.0 Absolute Basophils 0.0 Sodium 138.0 Potassium 5.3 H Chloride 105 Carbon Dioxide 22 Anion Gap 11 BUN 19 Creatinine 1.19 Est GFR ( Amer) > 60 Est GFR (Non-Af Amer) > 60 Glucose 209 H Lactic Acid 1.9 Calcium 8.3 L Magnesium Total Bilirubin 0.3 AST 17 ALT 27 Alkaline Phosphatase 76 Total Protein 6.2 L Albumin 3.4 L Lipase 12.5 L Stool Occult Blood 02/20/19 02/20/19 02/20/19 05:27 05:27 06:33 WBC 17.5 H RBC 3.74 L Hgb 11.8 L Hct 35.6 L MCV 95 MCH 31.6 MCHC 33.2 RDW 13.9 Plt Count 245 Seg Neutrophils % 88.0 H Lymphocytes % 8.8 L Monocytes % 3.0 Eosinophils % 0.1 Basophils % 0.1 Absolute Neutrophils 15.3 H Absolute Lymphocytes 1.5 Absolute Monocytes 0.5 Absolute Eosinophils 0.0 Absolute Basophils 0.0 Sodium 138.4 Potassium 5.7 H Chloride 105 Carbon Dioxide 22 Anion Gap 11 BUN 25 H Creatinine 1.11 Est GFR ( Amer) > 60 Est GFR (Non-Af Amer) > 60 Glucose 224 H Lactic Acid Calcium 8.4 Magnesium 2.3 Total Bilirubin AST ALT Alkaline Phosphatase Total Protein Albumin Lipase Stool Occult Blood POSITIVE 02/19/19 17:00 Troponin I 0.181 Impressions: Chest X-Ray 02/19/19 15:03 IMPRESSION: NO ACUTE RADIOGRAPHIC FINDING IN THE CHEST. Status: Imported from PACS Assessment and Plan - Diagnosis (1) Acute cystitis with hematuria Is this a current diagnosis for this admission?: Yes Plan: UA indicative of UTI: Large amount of WBCs, RBCs, leukoesterase Chronic indwelling Andrade catheter following recent TURP Andrade catheter exchanged in emergency department UTI treated with IV Rocephin Urine cultures pending (2) Hyperkalemia Is this a current diagnosis for this admission?: Yes Plan: Potassium elevated 5.3-->5.7 previously taking KCl supplements Currently discontinued Administer one-time dose of Kayexalate today Monitor electrolytes with daily chemistries (3) DM type 2 (diabetes mellitus, type 2) Qualifiers: Diabetes mellitus medical physiologist insulin use: without medical physiologist use Diabetes mellitus complication status: without complication Qualified Code(s): E11.9 - Type 2 diabetes mellitus without complications Is this a current diagnosis for this admission?: Yes Plan: Accu-Cheks AC at bedtime Humalog sliding scale insulin (4) Hypertension Qualifiers: Hypertension type: essential hypertension Qualified Code(s): I10 - Essential (primary) hypertension Is this a current diagnosis for this admission?: Yes Plan: [facility] HTN Blood pressure well controlled on home dose atenolol and lisinopril (5) Upper GI bleed Is this a current diagnosis for this admission?: Yes Plan: Recent hospitalization for upper GI bleed, discharged from [facility] approximately 3 days ago Continue PPI POC occult stool negative but occult stool performed by lab was positive DVT P PX currently on hold DOREEN stockings currently in place (6) Urinary retention Is this a current diagnosis for this admission?: Yes Plan: Andrade catheter was in place following TURP, placed by urologist Discharged to [facility] on oxybutynin, will continue at this time Andrade catheter exchanged in the emergency department during this visit - Time Time Spent with patient: 15-24 minutes Medications reviewed and adjusted accordingly: Yes Anticipated discharge: SNF Within: within 36 hours - Inpatient Certification Based on my medical assessment, after consideration of the patient's comorbidities, presenting symptoms, or acuity I expect that the services needed warrant INPATIENT care.: Yes I certify that my determination is in accordance with my understanding of Medicare's requirements for reasonable and necessary INPATIENT services [42 CFR 412.3e].: Yes Medical Necessity: Risk of Complication if Not Cared For in Hospital
[2019-02-20] MEDS: CEFTRIAXONE 2 GM/D5W RTU 2 GM/50 ML RTUPB IV SCH (17:12)
[2019-02-21 04:45] LABS: HEMATOCRIT 32.6 % (37.9-51.0); HEMOGLOBIN 10.9 g/dL (13.5-17.0); MEAN CORPUSCULAR HEMOGLOBIN 31.4 pg (27.0-33.4); MEAN CORPUSCULAR HGB CONC 33.5 g/dL (32.0-36.0); MEAN CORPUSCULAR VOLUME 94 fl (80-97); PLATELET COUNT 216 10^3/uL (150-450); RED BLOOD COUNT 3.47 10^6/uL (4.35-5.55); RED CELL DISTRIBUTION WIDTH 14.1 % (11.5-14.0); WHITE BLOOD COUNT 13.1 10^3/uL (4.0-10.5)
[2019-02-21 04:59] LABS: ANION GAP 9 (5-19); BLOOD UREA NITROGEN 19 mg/dL (7-20); CALCIUM 8.2 mg/dL (8.4-10.2); CARBON DIOXIDE 22 mmol/L (22-30); CHLORIDE 108 mmol/L (98-107); GLUCOSE 166 mg/dL (75-110); SODIUM 138.7 mmol/L (137-145)
[2019-02-21 05:10] LABS: POTASSIUM 4.6 mmol/L (3.6-5.0)
[2019-02-21] MEDS: METFORMIN HCL 500 MG TABLET PO SCH ×2 (08:20→17:49)
[2019-02-21] MEDS: INSULIN LISPRO 100 UNIT/ML 3 ML VIAL SUBCUT SCH ×4 (08:20→22:18)
[2019-02-21] MEDS: DOCUSATE SODIUM 100 MG CAPSULE PO SCH ×2 (09:49→17:50)
[2019-02-21] MEDS: OXYBUTYNIN CHLORIDE 5 MG TABLET PO SCH ×2 (09:50→17:49)
[2019-02-21] MEDS: ATENOLOL 50 MG TABLET PO SCH ×2 (09:50→22:18)
[2019-02-21] MEDS: LISINOPRIL 10 MG TABLET PO SCH (09:50)
[2019-02-21] MEDS: PANTOPRAZOLE SODIUM 40 MG VIAL IV SCH ×2 (09:50→22:18)
[2019-02-21] MEDS: INSULIN GLARGINE,HUM.REC.ANLOG 1,000 UNIT/10 ML VIAL SUBCUT SCH (11:36)
[2019-02-21] MEDS: NORMAL SALINE 1000 ML 1,000 ML IV PRN ×2 (11:36→22:58)
--- NOTE | 2019-02-21 16:58 | PDOC PROGRESS REPORT ---
Subjective Progress Note for:: 02/21/19 Subjective:: 73 y.o. M with a H HTN, HLD, CVA, diabetes type 2, recent TURP (chronic indwelling catheter), GERD. He was recently hospitalized at [facility] for an upper GI bleed, all studies negative and the patient returned to [facility]. He returned approximately 48 hours later with symptoms of malaise. He is admitted to the hospitalist service for UTI. Patient seen this morning on rounds, he is resting comfortably in bed on room air. Patient states he feels "not great "today. Unable to verbalize specific complaints, just feels run down. The patient denies abdominal pain, suprapubic pain, lower back pain or flank pain. No symptoms of dysuria. Instructed nursing staff to implement bladder training (clamp Andrade catheter every 4 hours, drain for 20 minutes). Plan is to discontinue Andrade catheter tomorrow. Reason For Visit: CYSTITIS, HYPOTENSION, RECENT GI BLEED Physical Exam Vital Signs: Temp Pulse Resp BP Pulse Ox 97.7 F 111 H 18 104/68 100 02/21/19 12:02 02/21/19 12:02 02/21/19 12:02 02/21/19 12:02 02/21/19 12:02 Intake & Output 02/20/19 02/21/19 02/22/19 06:59 06:59 06:59 Intake Total 3050 2390 580 Output Total 50 1875 500 Balance 3000 515 80 Weight 103.8 kg 103.4 kg General appearance: PRESENT: no acute distress, well-developed, well-nourished Head exam: PRESENT: atraumatic, normocephalic Eye exam: PRESENT: conjunctiva pink, EOMI, PERRLA. ABSENT: scleral icterus Ear exam: PRESENT: normal external ear exam Mouth exam: PRESENT: moist, tongue midline Teeth exam: PRESENT: poor dentation Neck exam: ABSENT: carotid bruit, JVD, lymphadenopathy, thyromegaly Respiratory exam: PRESENT: clear to auscultation mackenzie, symmetrical, unlabored. ABSENT: rales, rhonchi, wheezes Cardiovascular exam: PRESENT: RRR. ABSENT: diastolic murmur, rubs, systolic murmur Pulses: PRESENT: normal radial pulses, normal dorsalis pedis pul Vascular exam: PRESENT: normal capillary refill GI/Abdominal exam: PRESENT: normal bowel sounds, soft. ABSENT: distended, guarding, mass, organolmegaly, rebound, tenderness Rectal exam: PRESENT: deferred Gentrourinary exam: PRESENT: indwelling catheter Extremities exam: PRESENT: full ROM. ABSENT: calf tenderness, clubbing, pedal edema Musculoskeletal exam: PRESENT: ambulatory - With 1 person assistance using front wheel walker, full ROM Neurological exam: PRESENT: alert, awake, oriented to person, oriented to place, oriented to time, oriented to situation Psychiatric exam: PRESENT: appropriate affect, normal mood Skin exam: PRESENT: dry, intact, warm. ABSENT: cyanosis, rash Results Laboratory Results: 02/21/19 04:25 02/21/19 04:25 02/21/19 02/21/19 04:25 04:25 WBC 13.1 H RBC 3.47 L Hgb 10.9 L Hct 32.6 L MCV 94 MCH 31.4 MCHC 33.5 RDW 14.1 H Plt Count 216 Sodium 138.7 Potassium 4.6 D Chloride 108 H Carbon Dioxide 22 Anion Gap 9 BUN 19 Creatinine 0.77 Est GFR ( Amer) > 60 Est GFR (Non-Af Amer) > 60 Glucose 166 H Calcium 8.2 L Magnesium 2.2 02/19/19 17:00 Troponin I 0.181 Impressions: Chest X-Ray 02/19/19 15:03 IMPRESSION: NO ACUTE RADIOGRAPHIC FINDING IN THE CHEST. Status: Imported from PACS Assessment and Plan - Diagnosis (1) Acute cystitis with hematuria Is this a current diagnosis for this admission?: Yes Plan: UA indicative of UTI: Large amount of WBCs, RBCs, leukoesterase Chronic indwelling Andrade catheter following recent TURP Andrade catheter exchanged in emergency department UTI treated with IV Rocephin Urine cultures pending (2) Hyperkalemia Is this a current diagnosis for this admission?: Yes Plan: Potassium improved 5.3-->5.7-->4.7 previously taking KCl supplements Currently discontinued Received 1 dose of Kayexalate yesterday Monitor electrolytes with daily chemistries (3) DM type 2 (diabetes mellitus, type 2) Qualifiers: Diabetes mellitus half-way insulin use: without half-way use Diabetes mellitus complication status: without complication Qualified Code(s): E11.9 - Type 2 diabetes mellitus without complications Is this a current diagnosis for this admission?: Yes Plan: Accu-Cheks AC at bedtime Humalog sliding scale insulin (4) Hypertension Qualifiers: Hypertension type: essential hypertension Qualified Code(s): I10 - Jaron prater (primary) hypertension Is this a current diagnosis for this admission?: Yes Plan: [facility] HTN Blood pressure well controlled on home dose atenolol and lisinopril (5) Upper GI bleed Is this a current diagnosis for this admission?: Yes Plan: Recent hospitalization for upper GI bleed, discharged from [facility] approximately 3 days ago Continue PPI POC occult stool negative but occult stool performed by lab was positive DVT P PX currently on hold DOREEN stockings currently in place (6) Urinary retention Is this a current diagnosis for this admission?: Yes Plan: Andrade catheter was in place following TURP, placed by urologist Discharged to [facility] on oxybutynin, will continue at this time Andrade catheter exchanged in the emergency department during this visit Attempt bladder training today with hopes of discontinuing Andrade catheter tomorrow - Time Time Spent with patient: 15-24 minutes Medications reviewed and adjusted accordingly: Yes Anticipated discharge: SNF Within: within 72 hours - Inpatient Certification Based on my medical assessment, after consideration of the patient's comorbidities, presenting symptoms, or acuity I expect that the services needed warrant INPATIENT care.: Yes I certify that my determination is in accordance with my understanding of Medicare's requirements for reasonable and necessary INPATIENT services [42 CFR 412.3e].: Yes Medical Necessity: Need for IV Antibiotics
[2019-02-21] MEDS: CEFTRIAXONE 2 GM/D5W RTU 2 GM/50 ML RTUPB IV SCH (17:49)
--- NOTE | 2019-02-21 23:56 | EKG REPORT ---
SEVERITY:- ABNORMAL ECG - SINUS OR ECTOPIC ATRIAL TACHYCARDIA NONSPECIFIC INTRAVENTRICULAR CONDUCTION DELAY MINIMAL ST DEPRESSION, ANTERIOR LEADS : Confirmed by: Sivakumar Mota 21-Feb-2019 23:55:35
[2019-02-22] MEDS: INSULIN LISPRO 100 UNIT/ML 3 ML VIAL SUBCUT SCH ×4 (08:51→21:21)
[2019-02-22] MEDS: METFORMIN HCL 500 MG TABLET PO SCH ×2 (09:10→17:00)
[2019-02-22] MEDS: OXYBUTYNIN CHLORIDE 5 MG TABLET PO SCH ×2 (09:10→17:41)
[2019-02-22] MEDS: PANTOPRAZOLE SODIUM 40 MG VIAL IV SCH (09:11)
[2019-02-22] MEDS: INSULIN GLARGINE,HUM.REC.ANLOG 1,000 UNIT/10 ML VIAL SUBCUT SCH (09:11)
[2019-02-22] MEDS: ATENOLOL 50 MG TABLET PO SCH ×2 (09:11→21:24)
[2019-02-22] MEDS: LISINOPRIL 10 MG TABLET PO SCH (09:11)
[2019-02-22] MEDS: DOCUSATE SODIUM 100 MG CAPSULE PO SCH ×2 (09:13→17:41)
[2019-02-22 09:34] LABS: HEMATOCRIT 35.6 % (37.9-51.0); HEMOGLOBIN 11.8 g/dL (13.5-17.0); MEAN CORPUSCULAR HEMOGLOBIN 31.8 pg (27.0-33.4); MEAN CORPUSCULAR VOLUME 97 fl (80-97); RED BLOOD COUNT 3.69 10^6/uL (4.35-5.55); RED CELL DISTRIBUTION WIDTH 14.2 % (11.5-14.0); WHITE BLOOD COUNT 13.1 10^3/uL (4.0-10.5)
[2019-02-22 09:52] LABS: ALANINE AMINOTRANSFERASE 24 U/L (21-72); ALBUMIN 3.6 g/dL (3.5-5.0); ALKALINE PHOSPHATASE 83 U/L (38-126); ANION GAP 10 (5-19); ASPARTATE AMINO TRANSFERASE 15 U/L (17-59); BILIRUBIN,DIRECT 0.3 mg/dL (0.0-0.4); BILIRUBIN,TOTAL 0.4 mg/dL (0.2-1.3); BLOOD UREA NITROGEN 16 mg/dL (7-20); CALCIUM 8.4 mg/dL (8.4-10.2); CARBON DIOXIDE 23 mmol/L (22-30); CHLORIDE 107 mmol/L (98-107); GLUCOSE 156 mg/dL (75-110); PHOSPHORUS 3.6 mg/dL (2.5-4.5); PLATELET COUNT 250 10^3/uL (150-450); POTASSIUM 4.5 mmol/L (3.6-5.0); SODIUM 140.1 mmol/L (137-145); TOTAL PROTEIN 6.4 g/dL (6.3-8.2)
[2019-02-22] MEDS: NORMAL SALINE 1000 ML 1,000 ML IV PRN (10:18)
[2019-02-22 11:05] LABS: CREATINE KINASE MB 1.21 ng/mL (<4.55)
[2019-02-22 11:11] LABS: TROPONIN I 0.093 ng/mL
[2019-02-22] MEDS ORDERED: NITROGLYCERIN 0.4 MG/TAB 25 TAB/BOTTLE SL PRN (13:45)
[2019-02-22] MEDS ORDERED: MORPHINE SULFATE 10 MG/ML INJ IV ONE (13:45)
[2019-02-22] MEDS ORDERED: ALBUTEROL SULFATE HFA (90 MCG/PUFF) 200 PUFF/8.5 GM MDI IH PRN (14:47)
--- NOTE | 2019-02-22 15:32 | RADIOLOGY REPORT (SQ) ---
EXAM DESCRIPTION: CHEST SINGLE VIEW COMPLETED DATE/TIME: 02/22/2019 2:49 pm REASON FOR STUDY: dyspnea COMPARISON: 02/19/2019 EXAM PARAMETERS: NUMBER OF VIEWS: One view. TECHNIQUE: Single frontal radiographic view of the chest acquired. RADIATION DOSE: NA LIMITATIONS: None. FINDINGS: LUNGS AND PLEURA: Probable scarring or atelectasis of the lingula. No new opacities, mass es or pneumothorax. No pleural effusion. MEDIASTINUM AND HILAR STRUCTURES: No masses. Contour normal. HEART AND VASCULAR STRUCTURES: Cardiomegaly. BONES: No acute findings. HARDWARE: None in the chest. OTHER: No other significant finding. IMPRESSION: Probable scarring or atelectasis of the lingula. No new airspace opacity. Cardiomegaly . TECHNICAL DOCUMENTATION: JOB ID: [id number] [employer]- All Rights Reserved Reading location - IP/workstation name: [email or web address]
[2019-02-22] MEDS: TIOTROPIUM BROMIDE DPI 5 CAP/KIT (18 MCG/CAP) IH SCH (17:41)
[2019-02-22] MEDS: CEFTRIAXONE 2 GM/D5W RTU 2 GM/50 ML RTUPB IV SCH (17:41)
--- NOTE | 2019-02-22 17:56 | RADIOLOGY REPORT (SQ) ---
EXAM DESCRIPTION: CTA CHEST COMPLETED DATE/TIME: 02/22/2019 5:03 pm REASON FOR STUDY: dyspnea. eval for PE COMPARISON: None. TECHNIQUE: CT scan of the chest performed using helical scanning technique with dynamic intravenous contrast injection. Images reviewed with lung, soft tissue and bone windows. Reconstructed coronal and sagittal MPR images reviewed. Additional 3 dimensional post-processing performed to develop Maximal Intensity Projection images (TN P). All images stored on PACS. All CT scanners at this facility use dose modulation, iterative reconstruction, and/or weight based d osing when appropriate to reduce radiation dose to as low as reasonably achievable (ALARA). [facility]: Dose Right [facility]: CareDose [facility]: Dose Right [facility]: Teradose 4D [facility]: Smart Medefy CONTRAST TYPE AND DOSE: contrast/concentration: Isovue 350.00 mg/ml; Total Contrast Delivered: 69.0 ml; Total Saline Delivered: 80.0 ml Contrast bolus optimized for the pulmonary arteries. Not diagnostic for the aorta. RENAL FUNCTION: GFR > 60. RADIATION DOSE: CT Rad equipment meets quality standard of care and radiation dose reduction techniq ues were employed. CTDIvol: 28.0 - 52.9 mGy. DLP: 1034 mGy-cm. . LIMITATIONS: None. FINDINGS: LUNGS AND PLEURA: Small right pleural effusion. Minimal basilar subsegmental atelectasis. No pneumothorax. AORTA AND GREAT VESSELS: No aneurysm. Contrast bolus not optimized for the aorta. HEART: Small pericardial effusion. Moderate coronary artery calcifications. PULMONARY ARTERIES: Large volume of emboli visualized in the main pulmonary arteries and the segmenta l branches. HILAR AND MEDIASTINAL STRUCTURES: No identified masses or abnormal nodes. HARDWARE: None in the chest. UPPER ABDOMEN: No significant findings. Limited exam. THYROID AND OTHER SOFT TISSUES: No masses. No adenopathy. BONES: No acute or significant finding. 3D MIPS: Confirm above findings. OTHER: No other significant finding. IMPRESSION: Large volume of emboli visualized in the main pulmonary arteries and the segmental branc hes.Small right pleural effusion. Minimal basilar subsegmental atelectasis. COMMENT: Quality ID # [id number]: Final reports with documentation of one or more dose reduction techniques (e.g., Automated exposure control, adjustment of the mA and/or kV according to patient size, use of iterative reconstruction technique) TECHNICAL DOCUMENTATION: JOB ID: [id number] [place]-72 2010 [employer]- All Rights Reserved Reading location - IP/workstation name: [email or web address]
[2019-02-22] MEDS ORDERED: HEPARIN SOD (PORCINE) 1,000 UNIT/ML 10 ML VIAL IV PRN (18:30)
[2019-02-22 19:07] LABS: HEMATOCRIT 32.4 % (37.9-51.0); HEMOGLOBIN 10.7 g/dL (13.5-17.0); MEAN CORPUSCULAR HEMOGLOBIN 31.6 pg (27.0-33.4); MEAN CORPUSCULAR HGB CONC 32.9 g/dL (32.0-36.0); MEAN CORPUSCULAR VOLUME 96 fl (80-97); PLATELET COUNT 257 10^3/uL (150-450); RED BLOOD COUNT 3.38 10^6/uL (4.35-5.55); RED CELL DISTRIBUTION WIDTH 14.3 % (11.5-14.0); WHITE BLOOD COUNT 13.8 10^3/uL (4.0-10.5)
[2019-02-22 19:14] LABS: INTERNATIONAL RATION (INR) 1.24; PROTHROMBIN TIME 15.7 SEC (11.4-15.4)
[2019-02-22] MEDS: HEPARIN SODIUM,PORCINE/D5W 25,000 UNIT/250 ML RTUINJ IV PRN (19:34)
--- NOTE | 2019-02-22 21:16 | PDOC PROGRESS REPORT ---
Subjective Progress Note for:: 02/22/19 Subjective:: 73 y.o. M with a H HTN, HLD, CVA, diabetes type 2, recent TURP (chronic indwelling catheter), GERD. He was recently hospitalized at [facility] for an upper GI bleed, all studies negative and the patient returned to [facility]. He returned approximately 48 hours later with symptoms of malaise. He is admitted to the hospitalist service for UTI. Patient seen this morning on rounds, he is resting comfortably in bed on room air. Patient reported to nursing staff that he was feeling SOB and endorsed chest tightness. Specifically denied chest pain. Stated that he was unable to catch his breath. On assessment, LCTA. S1S2. No peripheral or central cyanosis. The patient appears to be SOB during conversation, having to pause at the end of each sentence to catch his breath. SPO2 was 100% on room air, was offered 2L nasal cannula for comfort. CXR repeated today and only showed mild cardiomegaly, no other pathology. EKG showed sinus tachycardia, no infarction or ischemia. Troponin 0.09. The patient was given 2mg Morphine, which did not resolve his symptoms. He was also offered a nebulizer treatment, in case this was a COPD exacerbation (patient is a 40+ yr smoker of cigars), but that didn't offer relief either. Finally, the patient was sent for a CTA chest to evaluate for a PE. Unfortunately, the results showed a large volume of pulmonary emboli in the main pulmonary arteries and segmental branches. The patient was started on a heparin gtt. The patient was not on DVT prophylaxis because he presented with hematuria. Additionally, his hemoccult was positive. He was recently admitted/discharged from [facility] for a GI bleed. At the time of admission, his risk of re-bleeding outweighed the risk for a DVT/PE, therefore he was not started on DVT prophylaxis. Plan for ECHOcardiogram to evaluate for R heart strain as well as a Venous Doppler to evaluate for DVT. Reason For Visit: CYSTITIS, HYPOTENSION, RECENT GI BLEED Physical Exam Vital Signs: Temp Pulse Resp BP Pulse Ox 97.4 F 71 18 118/83 100 02/22/19 15:18 02/22/19 16:28 02/22/19 16:28 02/22/19 15:18 02/22/19 15:18 Intake & Output 0602/22/19 02/23/19 06:59 06:59 06:59 Intake Total 2390 1790 3012 Output Total 9695 1300 550 Balance 023 763 0773 Weight 103.4 kg 103.4 kg General appearance: PRESENT: no acute distress, mild distress - respiratory Head exam: PRESENT: atraumatic, normocephalic Eye exam: PRESENT: conjunctiva pink, EOMI, PERRLA. ABSENT: scleral icterus Ear exam: PRESENT: normal external ear exam Mouth exam: PRESENT: moist, tongue midline Teeth exam: PRESENT: poor dentation Neck exam: PRESENT: full ROM. ABSENT: carotid bruit, JVD, lymphadenopathy, thyromegaly Respiratory exam: PRESENT: clear to auscultation mackenzie, symmetrical, tachypnea. ABSENT: crackles, rales, rhonchi, wheezes Cardiovascular exam: PRESENT: RRR, +S1, +S2. ABSENT: diastolic murmur, rubs, systolic murmur Pulses: PRESENT: normal radial pulses, normal dorsalis pedis pul Vascular exam: PRESENT: normal capillary refill GI/Abdominal exam: PRESENT: normal bowel sounds, soft. ABSENT: distended, guarding, mass, organolmegaly, rebound, tenderness Rectal exam: PRESENT: deferred Extremities exam: PRESENT: full ROM. ABSENT: calf tenderness, clubbing, pedal edema Musculoskeletal exam: PRESENT: ambulatory - with assistance from staff using walker, full ROM Neurological exam: PRESENT: alert, awake, oriented to person, oriented to place, oriented to time, oriented to situation Psychiatric exam: PRESENT: appropriate affect, normal mood Skin exam: PRESENT: dry, intact, warm. ABSENT: cyanosis, rash Results Laboratory Results: 02/22/19 18:50 02/22/19 08:46 02/22/19 02/22/19 02/22/19 08:46 08:46 18:50 WBC 13.1 H 13.8 H RBC 3.69 L 3.38 L Hgb 11.8 L 10.7 L Hct 35.6 L 32.4 L MCV 97 96 MCH 31.8 31.6 MCHC 33.0 32.9 RDW 14.2 H 14.3 H Plt Count 250 257 Sodium 140.1 Potassium 4.5 Chloride 107 Carbon Dioxide 23 Anion Gap 10 BUN 16 Creatinine 0.83 Est GFR ( Amer) > 60 Est GFR (Non-Af Amer) > 60 Glucose 156 H Calcium 8.4 Phosphorus 3.6 Magnesium 2.1 Total Bilirubin 0.4 AST 15 L ALT 24 Alkaline Phosphatase 83 Total Protein 6.4 Albumin 3.6 02/19/19 16:10 Catheterized Urine Urine Culture - Final Enterococcus Faecalis(Group D) 02/19/19 02/22/19 02/22/19 17:00 10:06 10:06 Creatine Kinase 37 L CK-MB (CK-2) 1.21 Troponin I 0.181 0.093 NT-Pro-B Natriuret Pep 02/22/19 02/22/19 10:06 15:40 Creatine Kinase CK-MB (CK-2) Troponin I 0.082 NT-Pro-B Natriuret Pep 7150 H Impressions: Chest X-Ray 02/22/19 14:26 IMPRESSION: Probable scarring or atelectasis of the lingula. No new airspace opacity. Cardiomegaly. Chest/Abdomen CTA 02/22/19 15:34 IMPRESSION: Large volume of emboli visualized in the main pulmonary arteries and the segmental branches.Small right pleural effusion. Minimal basilar subsegmental atelectasis. Status: Imported from PACS Assessment and Plan - Diagnosis (1) Pulmonary emboli Qualifiers: Pulmonary embolism type: unspecified Chronicity: acute Acute cor pulmonale presence: without acute cor pulmonale Qualified Code(s): I26.99 - Other pulmonary embolism without acute cor pulmonale Is this a current diagnosis for this admission?: Yes Plan: Seen on CTA Multiple emboli in main pulmonary arteries and segmental branches Patient states he has not been feeling well for days Denies chest pain or calf pain (DVT) Not on DVT PPX due to recent GI bleed, hematuria and hemmoccult Initiate heparin gtt, will need to bridge to PO anticoagulation STAT ECHOcardiogram ordered to evaluate possible R heart strain STAT Venous doppler to evaluate for DVT If venous doppler negative, will need hematology workup (2) Acute respiratory failure Qualifiers: Respiratory failure complication: hypercapnia Qualified Code(s): J96.02 - Acute respiratory failure with hypercapnia Is this a current diagnosis for this admission?: Yes Plan: Due to large number of pulmonary emboli Started on heparin gtt Supplemental O2 for SPO2>92% (3) Acute cystitis with hematuria Is this a current diagnosis for this admission?: Yes Plan: UA indicative of UTI: Large amount of WBCs, RBCs, leukoesterase Chronic indwelling Andrade catheter following recent TURP Andrade catheter exchanged in emergency department UTI treated with IV Rocephin Urine cultures pending (4) Hyperkalemia Is this a current diagnosis for this admission?: Yes Plan: Potassium improved 5.3-->5.7-->4.5 previously taking KCl supplements Currently discontinued Now s/p 1 dose of Kayexalate Monitor electrolytes with daily chemistries (5) DM type 2 (diabetes mellitus, type 2) Qualifiers: 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: without nursing home use Diabetes mellitus complication status: without complication Qualified Code(s): E11.9 - Type 2 diabetes mellitus without complications Is this a current diagnosis for this admission?: Yes Plan: Accu-Cheks AC at bedtime Humalog sliding scale insulin (6) Hypertension Qualifiers: Hypertension type: essential hypertension Qualified Code(s): I10 - Essential (primary) hypertension Is this a current diagnosis for this admission?: Yes Plan: [facility] HTN Blood pressure well controlled on home dose atenolol and lisinopril (7) Upper GI bleed Is this a current diagnosis for this admission?: Yes Plan: Recent hospitalization for upper GI bleed, discharged from [facility] approximately 3 days ago Continue PPI + hematuria on admission POC occult stool negative but occult stool performed by lab was positive DVT PPX currently on hold DOREEN stockings currently in place (8) Urinary retention Is this a current diagnosis for this admission?: Yes Plan: Andrade catheter was in place following TURP, placed by urologist Discharged to [facility] on oxybutynin, will continue at this time Andrade catheter exchanged in the emergency department during this visit Attempt bladder training with hopes of discontinuing Andrade catheter as soon as possible - Time Time Spent with patient: 15-24 minutes Medications reviewed and adjusted accordingly: Yes Anticipated discharge: SNF Within: Other - when medically stable
[2019-02-22] MEDS: ALPRAZOLAM 0.25 MG TABLET PO PRN (21:25)
[2019-02-22] MEDS: SALMETEROL XINAFOATE DISKUS 50 MCG/1 DOSE 28 DOSE IH SCH (22:00)
--- NOTE | 2019-02-22 22:23 | EKG REPORT ---
SEVERITY:- ABNORMAL ECG - SINUS TACHYCARDIA VS ATRIAL ECTOPIC TACHYCARDIA/SLOW A FLUTTER WITH 2:1 CONDUCTION RIGHT BUNDLE BRANCH BLOCK : Confirmed by: Sivakumar Mota 22-Feb-2019 22:23:20
[2019-02-23 01:41] LABS: HEMATOCRIT 30.1 % (37.9-51.0); HEMOGLOBIN 10.1 g/dL (13.5-17.0); MEAN CORPUSCULAR HEMOGLOBIN 32.3 pg (27.0-33.4); MEAN CORPUSCULAR HGB CONC 33.6 g/dL (32.0-36.0); MEAN CORPUSCULAR VOLUME 96 fl (80-97); PLATELET COUNT 212 10^3/uL (150-450); RED BLOOD COUNT 3.13 10^6/uL (4.35-5.55); RED CELL DISTRIBUTION WIDTH 14.1 % (11.5-14.0); WHITE BLOOD COUNT 12.4 10^3/uL (4.0-10.5)
[2019-02-23 06:08] LABS: APPEARANCE,URINE CLOUDY; BILIRUBIN,URINE NEGATIVE (NEGATIVE); COLOR,URINE YELLOW; GLUCOSE, URINE NEGATIVE (NEGATIVE); KETONES,URINE NEGATIVE (NEGATIVE); LEUKOCYTE ESTERASE,URINE TRACE (NEGATIVE); NITRITE,URINE NEGATIVE (NEGATIVE); PROTEIN,URINE 100 mg/dL (NEGATIVE); UROBILINOGEN,URINE NEGATIVE mg/dL (<2.0)
[2019-02-23] MEDS: INSULIN LISPRO 100 UNIT/ML 3 ML VIAL SUBCUT SCH ×4 (08:20→21:24)
[2019-02-23] MEDS: METFORMIN HCL 500 MG TABLET PO SCH ×2 (08:21→16:06)
[2019-02-23] MEDS: HEPARIN SODIUM,PORCINE/D5W 25,000 UNIT/250 ML RTUINJ IV PRN ×2 (08:22→23:51)
[2019-02-23] MEDS: LEVALBUTEROL HCL NEB 1.25 MG/3 ML AMPUL NEB PRN ×3 (08:55→17:02)
[2019-02-23] MEDS: LEVOFLOXACIN 750 MG/D5W RTU 750 MG/150 ML RTUPB IV SCH (09:37)
[2019-02-23] MEDS: DOCUSATE SODIUM 100 MG CAPSULE PO SCH ×2 (09:37→17:20)
[2019-02-23] MEDS: LISINOPRIL 10 MG TABLET PO SCH (09:37)
[2019-02-23] MEDS: TIOTROPIUM BROMIDE DPI 5 CAP/KIT (18 MCG/CAP) IH SCH (09:37)
[2019-02-23] MEDS: SALMETEROL XINAFOATE DISKUS 50 MCG/1 DOSE 28 DOSE IH SCH ×2 (09:37→21:22)
[2019-02-23] MEDS: ATENOLOL 50 MG TABLET PO SCH ×2 (09:37→21:24)
[2019-02-23] MEDS: OXYBUTYNIN CHLORIDE 5 MG TABLET PO SCH ×2 (09:38→17:20)
[2019-02-23] MEDS: INSULIN GLARGINE,HUM.REC.ANLOG 1,000 UNIT/10 ML VIAL SUBCUT SCH (09:38)
--- NOTE | 2019-02-23 10:03 | PDOC PROGRESS REPORT ---
Subjective Progress Note for:: 02/23/19 Subjective:: 73 y.o. M with a H HTN, HLD, CVA, diabetes type 2, recent TURP (chronic indwelling catheter), GERD. He was recently hospitalized at [facility] for an upper GI bleed, all studies negative and the patient returned to [facility]. He returned approximately 48 hours later with symptoms of malaise. He is admitted to the hospitalist service for UTI. The patient was not on DVT PPX due to risk of bleeding. Unfortunately, he developed a large volume of pulmonary emboli in the main pulmonary arteries and segmental branches. The patient was started on a heparin gtt. Dark red blood was noted in the Andrade catheter tubing this morning. Nursing staff reports that they were continuing bladder training (clamp Andrade catheter for 4 hours, drain for 20 minutes) up until this morning, when staff noted dark red blood passing through Andrade tubing. Instructed nursing staff to discontinue bladder training. Within an hour of continuous bladder drainage, urine appeared clear and yellow. The patient was seen this morning on rounds, he is resting comfortably in bed on supplemental oxygen via nasal cannula. The patient endorses a degree of anxiety regarding his new diagnosis of pulmonary emboli. The patient frequently pauses throughout the conversation to catch his breath. He even states that he did not call his daughter to explain his new diagnosis because he "cannot carry on a long conversation"due to exertional dyspnea. L CTA. No evidence of central or peripheral cyanosis. Pulses are palpable in the upper and lower extremities. ECHOcardiogram to evaluate for R heart strain as well as a Venous Doppler to evaluate for DVT are currently pending. Patient will remain at [facility] for treatment of his UTI and new diagnosis of pulmonary emboli. Reason For Visit: CYSTITIS, HYPOTENSION, RECENT GI BLEED Physical Exam Vital Signs: Temp Pulse Resp BP Pulse Ox 97.7 F 113 H 22 H 117/66 96 02/23/19 07:50 02/23/19 08:55 02/23/19 08:55 02/23/19 07:50 02/23/19 08:55 Intake & Output 02/22/19 02/23/19 02/24/19 06:59 06:59 06:59 Intake Total 1790 4644 33 Output Total 1300 1375 Balance 490 3269 33 Weight 103.4 kg 105.6 kg General appearance: PRESENT: no acute distress, obese Head exam: PRESENT: atraumatic, normocephalic Eye exam: PRESENT: conjunctiva pink, EOMI, PERRLA. ABSENT: scleral icterus Ear exam: PRESENT: normal external ear exam Mouth exam: PRESENT: moist, tongue midline Teeth exam: PRESENT: poor dentation Neck exam: ABSENT: carotid bruit, JVD, lymphadenopathy, thyromegaly Respiratory exam: PRESENT: clear to auscultation mackenzie, symmetrical. ABSENT: chest wall tenderness, rales, rhonchi, unlabored - Mildly labored during conversation. Comfortable at rest., wheezes Cardiovascular exam: PRESENT: RRR, +S1, +S2. ABSENT: diastolic murmur, rubs, systolic murmur Pulses: PRESENT: normal radial pulses, normal dorsalis pedis pul Vascular exam: PRESENT: normal capillary refill GI/Abdominal exam: PRESENT: normal bowel sounds, soft. ABSENT: distended, guarding, mass, organolmegaly, rebound, tenderness Rectal exam: PRESENT: deferred Gentrourinary exam: PRESENT: indwelling catheter Extremities exam: PRESENT: full ROM. ABSENT: calf tenderness, clubbing, pedal edema Musculoskeletal exam: PRESENT: ambulatory - With walker and 1 person assist, full ROM, normal inspection. ABSENT: deformity Neurological exam: PRESENT: alert, awake, oriented to person, oriented to place, oriented to time, oriented to situation Psychiatric exam: PRESENT: appropriate affect, normal mood Skin exam: PRESENT: dry, intact, warm. ABSENT: cyanosis, rash Results Laboratory Results: 02/23/19 01:30 02/22/19 08:46 02/22/19 02/22/19 02/22/19 08:46 08:46 18:50 WBC 13.1 H 13.8 H RBC 3.69 L 3.38 L Hgb 11.8 L 10.7 L Hct 35.6 L 32.4 L MCV 97 96 MCH 31.8 31.6 MCHC 33.0 32.9 RDW 14.2 H 14.3 H Plt Count 250 257 Sodium 140.1 Potassium 4.5 Chloride 107 Carbon Dioxide 23 Anion Gap 10 BUN 16 Creatinine 0.83 Est GFR ( Amer) > 60 Est GFR (Non-Af Amer) > 60 Glucose 156 H Calcium 8.4 Phosphorus 3.6 Magnesium 2.1 Total Bilirubin 0.4 AST 15 L ALT 24 Alkaline Phosphatase 83 Total Protein 6.4 Albumin 3.6 Urine Color Urine Appearance Urine pH Ur Specific [place] Urine Protein Urine Glucose (UA) Urine Ketones Urine Blood Urine Nitrite Ur Leukocyte Esterase Urine WBC (Auto) Urine RBC (Auto) 02/23/19 02/23/19 01:30 05:37 WBC 12.4 H RBC 3.13 L Hgb 10.1 L Hct 30.1 L MCV 96 MCH 32.3 MCHC 33.6 RDW 14.1 H Plt Count 212 Sodium Potassium Chloride Carbon Dioxide Anion Gap BUN Creatinine Est GFR ( Amer) Est GFR (Non-Af Amer) Glucose Calcium Phosphorus Magnesium Total Bilirubin AST ALT Alkaline Phosphatase Total Protein Albumin Urine Color YELLOW Urine Appearance CLOUDY Urine pH 5.0 Ur Specific [place] 1.030 Urine Protein 100 H Urine Glucose (UA) NEGATIVE Urine Ketones NEGATIVE Urine Blood LARGE H Urine Nitrite NEGATIVE Ur Leukocyte Esterase TRACE H Urine WBC (Auto) 50 Urine RBC (Auto) 117 02/19/19 02/22/19 02/22/19 17:00 10:06 10:06 Creatine Kinase 37 L CK-MB (CK-2) 1.21 Troponin I 0.181 0.093 NT-Pro-B Natriuret Pep 02/22/19 02/22/19 10:06 15:40 Creatine Kinase CK-MB (CK-2) Troponin I 0.082 NT-Pro-B Natriuret Pep 7150 H Impressions: Chest X-Ray 02/22/19 14:26 IMPRESSION: Probable scarring or atelectasis of the lingula. No new airspace opacity. Cardiomegaly. Chest/Abdomen CTA 02/22/19 15:34 IMPRESSION: Large volume of emboli visualized in the main pulmonary arteries and the segmental branches.Small right pleural effusion. Minimal basilar subsegmental atelectasis. Status: Imported from PACS Assessment and Plan - Diagnosis (1) Pulmonary emboli Qualifiers: Pulmonary embolism type: unspecified Chronicity: acute Acute cor pulmonale presence: without acute cor pulmonale Qualified Code(s): I26.99 - Other pulmonary embolism without acute cor pulmonale Is this a current diagnosis for this admission?: Yes Plan: Seen on CTA Multiple emboli in main pulmonary arteries and segmental branches Patient states he has not been feeling well/general malaise for days Well's criteria for PE 3 (relative risk 27.8%) Was not on DVT PPX due to recent GI bleed, hematuria and hemmoccult Continue heparin gtt, will need to bridge to PO anticoagulation once stabilized ECHOcardiogram ordered to evaluate possible R heart strain, results pending Venous doppler to evaluate for DVT, results pending If venous doppler negative, will need hematology workup Due to the patient's complicated clinical picture (PE requiring heparin vs hematuria and hemoccult), plan to consult Heme/Onc. Appreciate their recommendations. (2) Acute respiratory failure Qualifiers: Respiratory failure complication: hypercapnia Qualified Code(s): J96.02 - Acute respiratory failure with hypercapnia Is this a current diagnosis for this admission?: Yes Plan: Due to large number of pulmonary emboli Started on heparin gtt Supplemental O2 for SPO2>92% (3) Acute cystitis with hematuria Is this a current diagnosis for this admission?: Yes Plan: UA indicative of UTI: Large amount of WBCs, RBCs, leukoesterase Chronic indwelling Andrade catheter following recent TURP Andrade catheter exchanged in emergency department Urine cultures show Enterococcus faecalis, switched from Rocephin to IV Levaquin today (4) Hyperkalemia Is this a current diagnosis for this admission?: Yes Plan: Potassium improved 5.3-->5.7-->4.5 previously taking KCl supplements Currently discontinued Now s/p 1 dose of Kayexalate Monitor electrolytes with daily chemistries (5) DM type 2 (diabetes mellitus, type 2) Qualifiers: Diabetes mellitus prison insulin use: without prison use Diabetes mellitus complication status: without complication Qualified Code(s): E11.9 - Type 2 diabetes mellitus without complications Is this a current diagnosis for this admission?: Yes Plan: Accu-Cheks AC at bedtime Humalog sliding scale insulin (6) Hypertension Qualifiers: Hypertension type: essential hypertension Qualified Code(s): I10 - Essential (primary) hypertension Is this a current diagnosis for this admission?: Yes Plan: [facility] HTN Blood pressure well controlled on home dose atenolol and lisinopril (7) Upper GI bleed Is this a current diagnosis for this admission?: Yes Plan: Recent hospitalization for upper GI bleed, discharged from [facility] approximately 3 days ago Continue PPI + hematuria on admission POC occult stool negative but occult stool performed by lab was positive DOREEN stockings currently in place (8) Urinary retention Is this a current diagnosis for this admission?: Yes Plan: Andrade catheter was in place following TURP, placed by urologist Discharged to [facility] on oxybutynin, will continue at this time Andrade catheter exchanged in the emergency department during this visit Once patient is stabilized, will resume bladder training in hopes of removing Andrade catheter - Time Time Spent with patient: 15-24 minutes Medications reviewed and adjusted accordingly: Yes Anticipated discharge: SNF Within: within 72 hours - Inpatient Certification Based on my medical assessment, after consideration of the patient's comorbidities, presenting symptoms, or acuity I expect that the services needed warrant INPATIENT care.: Yes I certify that my determination is in accordance with my understanding of Medicare's requirements for reasonable and necessary INPATIENT services [42 CFR 412.3e].: Yes Medical Necessity: Significant Comorbidiites Make Outpatient Treatment Too Risky, Need Close Monitoring Due to Risk of Patient Decompensation, Need For Continuous Telemetry Monitoring, Risk of Complication if Not Cared For in Hospital
[2019-02-23] MEDS: ALPRAZOLAM 0.25 MG TABLET PO PRN ×2 (16:07→21:24)
[2019-02-23] MEDS: ACETAMINOPHEN 325 MG TABLET PO PRN ×2 (16:07→21:27)
[2019-02-24] MEDS: ALPRAZOLAM 0.25 MG TABLET PO PRN ×3 (01:02→22:12)
[2019-02-24 06:24] LABS: HEMATOCRIT 33.3 % (37.9-51.0); HEMOGLOBIN 11.1 g/dL (13.5-17.0); MEAN CORPUSCULAR HGB CONC 33.4 g/dL (32.0-36.0); MEAN CORPUSCULAR VOLUME 96 fl (80-97); PLATELET COUNT 214 10^3/uL (150-450); RED BLOOD COUNT 3.47 10^6/uL (4.35-5.55); RED CELL DISTRIBUTION WIDTH 14.4 % (11.5-14.0); WHITE BLOOD COUNT 11.5 10^3/uL (4.0-10.5)
[2019-02-24 06:41] LABS: ALANINE AMINOTRANSFERASE 20 U/L (21-72); ALBUMIN 3.4 g/dL (3.5-5.0); ALKALINE PHOSPHATASE 135 U/L (38-126); ANION GAP 14 (5-19); ASPARTATE AMINO TRANSFERASE 17 U/L (17-59); BILIRUBIN,DIRECT 0.3 mg/dL (0.0-0.4); BILIRUBIN,TOTAL 0.4 mg/dL (0.2-1.3); BLOOD UREA NITROGEN 14 mg/dL (7-20); CALCIUM 8.6 mg/dL (8.4-10.2); CARBON DIOXIDE 22 mmol/L (22-30); CHLORIDE 105 mmol/L (98-107); GLUCOSE 120 mg/dL (75-110); PHOSPHORUS 4.6 mg/dL (2.5-4.5); POTASSIUM 4.3 mmol/L (3.6-5.0); SODIUM 140.8 mmol/L (137-145); TOTAL PROTEIN 6.3 g/dL (6.3-8.2)
[2019-02-24] MEDS: INSULIN LISPRO 100 UNIT/ML 3 ML VIAL SUBCUT SCH ×4 (08:45→22:00)
--- NOTE | 2019-02-24 09:30 | XCELERA REPORT ---
[address] [address] Lower Extremity Venous Evaluation Procedure: Color flow and duplex imaging bilaterally of the veins of the lower extremities as well as the Common Femoral veins. Right Sided Venous Evaluation Echogenic, enlarged veins with no Colour flow, from the Femoral through Peroneal and Posterior Tibial veins. suggesting acute thrombus, noted. Left Sided Venous Evaluation Normal vessel filling wall to wall, compression and augmentation as well as Colour flow down to the infrageniculate veins. Interpretation Summary Extensive acute DVT in the right Femoral veins. Consotent with source of DVT. Name: RUBÉN PACKER Age: 73 yrs Gender: Male : 1945 Patient Status: Inpatient Patient Location: [address] [place], [place] [address] Study Date: 02/23/2019 11:04 AM Reason For Study: RECENT PE. SWELLING Ordering Physician: PABLO MINAYA Performed By: Kaylynn Arevalo : PABLO MINAYA > Carl Arteaga
[2019-02-24] MEDS: LEVALBUTEROL HCL NEB 1.25 MG/3 ML AMPUL NEB PRN ×2 (09:47→23:42)
[2019-02-24] MEDS: TIOTROPIUM BROMIDE DPI 5 CAP/KIT (18 MCG/CAP) IH SCH (10:08)
[2019-02-24] MEDS: SALMETEROL XINAFOATE DISKUS 50 MCG/1 DOSE 28 DOSE IH SCH ×2 (10:08→22:10)
[2019-02-24] MEDS: LISINOPRIL 10 MG TABLET PO SCH (10:09)
[2019-02-24] MEDS: OXYBUTYNIN CHLORIDE 5 MG TABLET PO SCH ×2 (10:09→17:02)
[2019-02-24] MEDS: DOCUSATE SODIUM 100 MG CAPSULE PO SCH ×2 (10:09→17:00)
[2019-02-24] MEDS: METFORMIN HCL 500 MG TABLET PO SCH ×2 (10:09→17:00)
[2019-02-24] MEDS: ATENOLOL 50 MG TABLET PO SCH ×2 (10:10→22:11)
[2019-02-24] MEDS: INSULIN GLARGINE,HUM.REC.ANLOG 1,000 UNIT/10 ML VIAL SUBCUT SCH (10:10)
[2019-02-24] MEDS: LEVOFLOXACIN 750 MG/D5W RTU 750 MG/150 ML RTUPB IV SCH (10:11)
[2019-02-24] MEDS: ACETAMINOPHEN 325 MG TABLET PO PRN ×2 (13:42→20:54)
--- NOTE | 2019-02-24 14:54 | EKG REPORT ---
SEVERITY:- ABNORMAL ECG - PROBABLE A FIB, REC REPEAT EKG NONSPECIFIC IVCD WITH LAD ABNRM R PROG, CONSIDER ASMI OR LEAD PLACEMENT : Confirmed by: Sivakumar Mota 24-Feb-2019 14:54:04
[2019-02-24] MEDS: HEPARIN SODIUM,PORCINE/D5W 25,000 UNIT/250 ML RTUINJ IV PRN (17:00)
[2019-02-24] MEDS ORDERED: FUROSEMIDE 20 MG TABLET PO ONE ×2 (17:51→21:00)
--- NOTE | 2019-02-24 18:02 | PDOC PROGRESS REPORT ---
Subjective Progress Note for:: 02/24/19 Subjective:: 73 y.o. M with a H HTN, HLD, CVA, diabetes type 2, recent TURP (chronic indwelling catheter), GERD. He was recently hospitalized at [facility] for an upper GI bleed, all studies negative and the patient returned to [facility]. He returned approximately 48 hours later with symptoms of malaise. He is admitted to the hospitalist service for UTI and subsequently found to have a large volume of pulmonary emboli in the main pulmonary arteries and segmental branches. Patient was seen on afternoon rounds. He was found resting in bed comfortably on supplemental oxygen via nasal cannula 4 L/min. He was noted to have oxygen saturations in the high 90s, therefore, his oxygen was decreased to 2 L/min. Patient reports that other than generalized fatigue and weakness he has no complaints. He is understandably frustrated by his readmission and development of pulmonary embolus. However, he disengages when attempting to discuss his discharge plan (patient is homeless, was living in his vehicle which has been impounded, and only has a few days of short-term rehabilitation left available). He denies fever, chills, body aches, chest pain, palpitations, dyspnea at rest, cough, abdominal pain, nausea vomiting or diarrhea. He has not been up to work with physical therapy. He has no questions or concerns at this time. No concerns per nursing. Reason For Visit: CYSTITIS, HYPOTENSION, RECENT GI BLEED Physical Exam Vital Signs: Temp Pulse Resp BP Pulse Ox 97.6 F 114 H 16 118/82 99 02/24/19 11:56 02/24/19 14:00 02/24/19 11:56 02/24/19 11:56 02/24/19 11:56 Intake & Output 02/23/19 02/24/19 02/25/19 06:59 06:59 06:59 Intake Total 4644 474 400 Output Total 1375 1130 300 Balance 3269 -656 100 Weight 105.6 kg 103.3 kg General appearance: PRESENT: no acute distress, well-developed, well-nourished - Overweight Head exam: PRESENT: atraumatic, normocephalic Eye exam: PRESENT: conjunctiva pink, EOMI, PERRLA. ABSENT: scleral icterus Ear exam: PRESENT: normal external ear exam Mouth exam: PRESENT: moist, tongue midline Neck exam: ABSENT: carotid bruit, JVD, lymphadenopathy, thyromegaly Respiratory exam: PRESENT: clear to auscultation mackenzie, symmetrical, unlabored, other - Supplemental oxygen via nasal cannula. ABSENT: rales, rhonchi, wheezes Cardiovascular exam: PRESENT: RRR, +S1, +S2. ABSENT: diastolic murmur, rubs, systolic murmur Pulses: PRESENT: normal dorsalis pedis pul Vascular exam: PRESENT: normal capillary refill GI/Abdominal exam: PRESENT: normal bowel sounds, soft. ABSENT: distended, guarding, mass, organolmegaly, rebound, tenderness Rectal exam: PRESENT: deferred Gentrourinary exam: PRESENT: indwelling catheter Extremities exam: PRESENT: full ROM. ABSENT: calf tenderness, clubbing, pedal edema Neurological exam: PRESENT: alert, awake, oriented to person, oriented to place, oriented to time, oriented to situation, CN II-XII grossly intact. ABSENT: motor sensory deficit Psychiatric exam: PRESENT: flat affect, normal mood. ABSENT: homicidal ideation, suicidal ideation Skin exam: PRESENT: dry, intact, warm. ABSENT: cyanosis, rash Results Laboratory Results: 02/24/19 06:05 02/24/19 06:05 02/24/19 02/24/19 06:05 06:05 WBC 11.5 H RBC 3.47 L Hgb 11.1 L Hct 33.3 L MCV 96 MCH 32.0 MCHC 33.4 RDW 14.4 H Plt Count 214 Sodium 140.8 Potassium 4.3 Chloride 105 Carbon Dioxide 22 Anion Gap 14 BUN 14 Creatinine 0.72 Est GFR ( Amer) > 60 Est GFR (Non-Af Amer) > 60 Glucose 120 H Calcium 8.6 Phosphorus 4.6 H Magnesium 2.0 Total Bilirubin 0.4 AST 17 ALT 20 L Alkaline Phosphatase 135 H Total Protein 6.3 Albumin 3.4 L 02/19/19 17:00 Blood Blood Culture - Final NO GROWTH IN 5 DAYS 02/19/19 02/22/19 02/22/19 17:00 10:06 10:06 Creatine Kinase 37 L CK-MB (CK-2) 1.21 Troponin I 0.181 0.093 NT-Pro-B Natriuret Pep 02/22/19 02/22/19 02/24/19 10:06 15:40 06:05 Creatine Kinase CK-MB (CK-2) Troponin I 0.082 NT-Pro-B Natriuret Pep 7150 H [id number] H Impressions: Chest X-Ray 02/22/19 14:26 IMPRESSION: Probable scarring or atelectasis of the lingula. No new airspace opacity. Cardiomegaly. Chest/Abdomen CTA 02/22/19 15:34 IMPRESSION: Large volume of emboli visualized in the main pulmonary arteries and the segmental branches.Small right pleural effusion. Minimal basilar subsegmental atelectasis. Assessment and Plan - Diagnosis (1) Pulmonary emboli Qualifiers: Pulmonary embolism type: unspecified Chronicity: acute Acute cor pulmonale presence: without acute cor pulmonale Qualified Code(s): I26.99 - Other pulmonary embolism without acute cor pulmonale Is this a current diagnosis for this admission?: Yes Plan: Seen on CTA Multiple emboli in main pulmonary arteries and segmental branches Well's criteria for PE 3 (relative risk 27.8%) Was not on DVT PPX due to recent GI bleed, hematuria and hemmoccult ECHOcardiogram ordered to evaluate possible R heart strain, results pending Venous doppler revealed extensive acute DVT in the right femoral veins. Continue heparin gtt, will ask hematology for guidance on appropriate anticoagulation given the patient's current/ongoing hematuria and lack of financial means. Continue supplemental oxygen as needed to maintain saturations >90%. Incentive spirometer. Heme-onc has been consulted; appreciate their evaluation recommendations. Discharge planning has been consulted. (2) Acute respiratory failure Qualifiers: Respiratory failure complication: hypercapnia Qualified Code(s): J96.02 - Acute respiratory failure with hypercapnia Is this a current diagnosis for this admission?: Yes Plan: Secondary to #1. Management as above. Supplemental O2 for SPO2>92% (3) Acute cystitis with hematuria Is this a current diagnosis for this admission?: Yes Plan: UA indicative of UTI: Large amount of WBCs, RBCs, leukoesterase Chronic indwelling Andrade catheter following recent TURP Andrade catheter exchanged in emergency department Urine cultures show Enterococcus faecalis, sensitive to Levaquin. Patient was empirically placed on IV Rocephin; this was transitioned to IV Levaquin upon results of urine culture results. Will transition to p.o. Levaquin as the patient remains afebrile and leukocytosis continues to trend down. (4) Hyperkalemia Is this a current diagnosis for this admission?: Yes Plan: Resolved. Potassium improved 5.3-->5.7-->4.5-> 4.3 previously taking KCl supplements; currently discontinued Now s/p 1 dose of Kayexalate Monitor electrolytes with daily chemistries (5) DM type 2 (diabetes mellitus, type 2) Qualifiers: Diabetes mellitus continuous churn buttermaker insulin use: without assisted use Diabetes mellitus complication status: without complication Qualified Code(s): E11.9 - Type 2 diabetes mellitus without complications Is this a current diagnosis for this admission?: Yes Plan: Home dose metformin and glipizide on hold. Accu-Cheks before meals and at bedtime with Humalog sliding scale insulin Hypoglycemia protocol in place. (6) Hypertension Qualifiers: Hypertension type: essential hypertension Qualified Code(s): I10 - Essential (primary) hypertension Is this a current diagnosis for this admission?: Yes Plan: PMH HTN Blood pressure well controlled on home dose atenolol and lisinopril (7) Upper GI bleed Is this a current diagnosis for this admission?: Yes Plan: Recent hospitalization for upper GI bleed Continue PPI + hematuria on admission POC occult stool negative but occult stool performed by lab was positive Hemoglobin stable. We will ask hematology for guidance on anticoagulation choice given patient's recent upper GI bleed and hematuria. (8) Urinary retention Is this a current diagnosis for this admission?: Yes Plan: Andrade catheter was in place following TURP, placed by urologist Discharged to [facility] on oxybutynin, will continue at this time Andrade catheter exchanged in the emergency department during this visit Resume bladder training in hopes of removing Andrade catheter (9) Homeless Is this a current diagnosis for this admission?: Yes Plan: Discharge planning is consulted. - Time Time Spent with patient: 35 or more minutes Medications reviewed and adjusted accordingly: Yes Anticipated discharge: [facility] for remainder of short-term rehab days (patient reports 4-5 days remaining) Within: within 48 hours
--- NOTE | 2019-02-24 18:07 | Progress Note Acknowledgement ---
Progress Note Acknowledgement Progess Note Acknowledgement: I, the undersigned member of the medical staff with appropriate privileges and with supervisory authority over Augusta Mejía, a [facility] allied health professional, acknowledge that I have reviewed the progress notes entered on this patient, and in my professional judgment believe that the assessment made and/or any care evidenced was appropriate
--- NOTE | 2019-02-24 18:49 | PDOC CONSULTATION ---
Consultation Consult Date: 02/24/19 Provider Consulted: ILEANA VERGARA Consult reason:: Hematology/Oncology consultation was requested for patient with acute GI bleed and hematuria with new large volume PE in need of anticoagulation. History of Present Illness Admission Date/PCP: 02/19/19 18:20 History of Present Illness: RUBÉN PACKER is a 73 year old male who has been in and out of the hospital multiple times over the past 3 months. He has been having progressive dyspnea, weakness, and problems swallowing. He reports difficulty with his bowels and bladder for the past several months. He had been seeing Dr. Conrad with urology and had a Andrade catheter for about 6 weeks, followed by a surgical procedure to "open up the prostate passage." He was admitted to this hospital about 1-2 week s ago for acute GI bleeding. He underwent EGD but not colonoscopy. He also continues to have blood in his urine. He had been on ASA, but no other blood thinners until this admission, when he was found to have a large PE in the Right lung, as well as DVT Right leg. He was started on IV heparin, but continues to have hemoccult + stool, and hematuria. We are awaiting results from ECHO. Past Medical History Cardiac Medical History: Reports: Hyperlipidema, Hypertension Denies: Atrial Fibrillation, Congestive Heart Failure, Coronary Artery Disease, Myocardial Infarction Pulmonary Medical History: Denies: Asthma, Chronic Obstructive Pulmonary Disease (COPD), Respiratory Failure, Sleep Apnea EENT Medical History: Denies: Ears, Nose, Throat Neurological Medical History: Reports: Ischemic CVA Endocrine Medical History: Reports: Diabetes Mellitus Type 2 Renal/ Medical History: Reports: Other - Recent transurethral resection of the prostate approximately 2 weeks ago Malignancy Medical History: Reports: None GI Medical History: Reports: Gastroesophageal Reflux Disease Musculoskeltal Medical History: Reports: Arthritis Skin Medical History: Reports: None Psychiatric Medical History: Reports: Tobacco Dependency Denies: Dementia, Depression, General Anxiety Disorder Traumatic Medical History: Reports: None Hematology: Reports: Anemia - From recent GI bleed Infectious Medical History: Reports: None Past Surgical History Past Surgical History: Reports: Tonsillectomy, Other - TURP Social History Information Source: Patient Occupation: , with 2 kids. He is retired but has recently lost his home and his truck. Lives with: [facility] Smoking Status: Current Every Day Smoker - No tobacco for the last 2 months however before that cigar daily Cigars Per Day: 1 Frequency of Alcohol Use: None Hx Recreational Drug Use: No Hx Prescription Drug Abuse: No - Advance Directive Resuscitation Status: Do Not Resuscitate Family History Parental Family History Reviewed: Yes - Father of breast cancer. Mother with CAD. Children Family History Reviewed: No Sibling(s) Family History Reviewed.: Yes - Sister with COPD. Brother living with DM. Medication/Allergy Home Medications: Glipizide [Glucotrol 5 mg Tablet] 10 mg PO DAILY 02/14/19 Lisinopril [Prinivil 10 mg Tablet] 10 mg PO DAILY 02/14/19 Metformin HCl 1,000 mg PO BIDBS 02/14/19 Nicotine [Nicoderm 14 mg/24 Hr Transdermal Patch] 1 patch TD DAILY 02/14/19 Oxybutynin Chloride [Oxybutynin Chloride ER] 10 mg PO BID 02/14/19 Potassium Chloride [Klor-Con 10 Meq Capsule ER] 10 meq PO DAILY 02/14/19 Atenolol [Tenormin 50 mg Tablet] 25 mg PO BID #60 tablet 02/16/19 Pantoprazole Sodium [Protonix [address] Tablet] 40 mg PO Q6AM #30 tablet.dr 02/17/19 Acetaminophen [Tylenol 325 mg Tablet] 325 mg PO Q4HP PRN 02/19/19 Allergies/Adverse Reactions: No Known Allergies Allergy (Verified 02/14/19 16:14) Review of Systems Constitutional: ABSENT: fever(s), headache(s) Eyes: ABSENT: visual disturbances Ears: ABSENT: hearing changes Nose, Mouth, and Throat: ABSENT: sore throat Cardiovascular: PRESENT: chest pain, dyspnea on exertion Respiratory: PRESENT: dyspnea Gastrointestinal: PRESENT: dysphagia, hematemesis, melena Genitourinary: PRESENT: hematuria Integumentary: ABSENT: rash Neurological: PRESENT: weakness. ABSENT: confusion, memory loss Hematologic/Lymphatic: ABSENT: easy bruising Physical Exam Vital Signs: Temp Pulse Resp BP Pulse Ox 97.6 F 114 H 16 118/82 99 02/24/19 11:56 02/24/19 14:00 02/24/19 11:56 02/24/19 11:56 02/24/19 11:56 Intake & Output 02/23/19 02/24/19 02/25/19 06:59 06:59 06:59 Intake Total 4644 474 640 Output Total 6345 1130 300 Balance 5159 -546 340 Weight 105.6 kg 103.3 kg General appearance: PRESENT: no acute distress, well-developed, well-nourished Exam: 73 year old male. Head exam: PRESENT: normocephalic Eye exam: PRESENT: EOMI Mouth exam: PRESENT: tongue midline Neck exam: ABSENT: lymphadenopathy, tenderness Respiratory exam: PRESENT: clear to auscultation mackenzie Cardiovascular exam: PRESENT: RRR GI/Abdominal exam: PRESENT: soft. ABSENT: tenderness Gentrourinary exam: PRESENT: indwelling catheter Extremities exam: PRESENT: other - Right LE much larger than LLE. Neurological exam: PRESENT: alert, awake Psychiatric exam: PRESENT: appropriate affect Skin exam: PRESENT: normal color Results Laboratory Results: 02/24/19 06:05 02/24/19 06:05 02/24/19 02/24/19 06:05 06:05 WBC 11.5 H RBC 3.47 L Hgb 11.1 L Hct 33.3 L MCV 96 MCH 32.0 MCHC 33.4 RDW 14.4 H Plt Count 214 Sodium 140.8 Potassium 4.3 Chloride 105 Carbon Dioxide 22 Anion Gap 14 BUN 14 Creatinine 0.72 Est GFR ( Amer) > 60 Est GFR (Non-Af Amer) > 60 Glucose 120 H Calcium 8.6 Phosphorus 4.6 H Magnesium 2.0 Total Bilirubin 0.4 AST 17 ALT 20 L Alkaline Phosphatase 135 H Total Protein 6.3 Albumin 3.4 L 02/19/19 17:00 Blood Blood Culture - Final NO GROWTH IN 5 DAYS 02/19/19 02/22/19 02/22/19 17:00 10:06 10:06 Creatine Kinase 37 L CK-MB (CK-2) 1.21 Troponin I 0.181 0.093 NT-Pro-B Natriuret Pep 02/22/19 02/22/19 02/24/19 10:06 15:40 06:05 Creatine Kinase CK-MB (CK-2) Troponin I 0.082 NT-Pro-B Natriuret Pep 7150 H [id number] H Impressions: Chest X-Ray 02/22/19 14:26 IMPRESSION: Probable scarring or atelectasis of the lingula. No new airspace opacity. Cardiomegaly. Chest/Abdomen CTA 02/22/19 15:34 IMPRESSION: Large volume of emboli visualized in the main pulmonary arteries and the segmental branches.Small right pleural effusion. Minimal basilar subse gmental atelectasis. Status: Image reviewed by me Assessment & Plan - Diagnosis (1) Acute cystitis with hematuria Is this a current diagnosis for this admission?: Yes Plan: Patient continues to have hematuria on blood thinners. Further consultation with urology for cystoscopy or other recommendations for hematuria should be obtained. (2) Homeless Is this a current diagnosis for this admission?: Yes (3) Pulmonary emboli Qualifiers: Pulmonary embolism type: unspecified Chronicity: acute Acute cor pulmonale presence: without acute cor pulmonale Qualified Code(s): I26.99 - Other pulmonary embolism without acute cor pulmonale Is this a current diagnosis for this admission?: Yes Plan: He is currently on IV heparin, due to the severity of his symptoms from the PE. Await ECHO results. Although I am not fond of using blood thinners during active bleeding, I agree that he is at high risk for further progression of thromboses which could be deadly. I would not change from IV heparin until all bleeding has stopped. (4) Upper GI bleed Is this a current diagnosis for this admission?: Yes Plan: EGD was negative. However, colonoscopy has not been performed. He has a strong family history of cancer. An underlying cancer could explain his hypercoagulable state. Colonoscopy and CT A/P should be considered JOSE, both to screen for cancer, and also to stop any areas of blood loss, if possible. - Plan Summary Plan Summary: Currently, his HGB remains stable. However, if any evidence that this is dropping, or that he has significant bleeding, I would stop the heparin. I would strongly consider transfer to a tertiary center, as we do not have urology services here and he may need more aggressive cardio-pulmonary services.
--- NOTE | 2019-02-24 20:28 | XCELERA REPORT ---
[address] [address] Transthoracic Echocardiogram Report Name: RUBÉN PACKER Age: 73 yrs Gender: Male : 1945 Patient Status: Inpatient Patient Location: [address] [place] [address] Study Date: 02/23/2019 11:32 AM Height: 74 in Weight: 227 lb BSA: 2.3 m2 Procedure: A two-dimensional transthoracic echocardiogram with color flow and Doppler was performed. Study Quality: Poor. Images were not obtained from all of the standard acoustic windows due to the limited scope of the study. The study was technically difficult with many images being suboptimal in quality. Reason For Study: new PE. eval R heart strain History: new PE. eval R heart strain. Ordering Physician: YANET VALDES Performed By: Kaylynn Arevalo Interpretation Summary The left ventricle is normal in size. There is mild concentric left ventricular hypertrophy. new PE. eval R heart strain Doppler measurements suggest normal left ventricular diastolic function There is no thrombus. No ASD ,VSD .or PFO seen. The right ventricle is severely dilated. The right ventricular systolic function is severely reduced. The right atrium is moderate to severely dilated. The left atrium is mildly dilated. There is no evidence of mitral valve prolapse. There is no vegetation seen on the mitral valve. There is no mitral valve stenosis. There is no mitral regurgitation noted. There is no aortic valvular vegetation. There is no aortic valve stenosis No aortic regurgitation is present. There is servere pulmonary hypertension by echo Probably mild TR.RVSP is at least 67 mm of Hg , with a RA mean of at least 29. There is no pulmonic valvular regurgitation. The aortic root is mildly dilated The inferior vena cava appeared dilated and did not change with respiration (RAP > 20 mmHg) There is no pericardial effusion. MMode/2D Measurements & Calculations RVDd: 5.4 cm LVIDd: 3.8 cm FS: 30.7 % Ao root diam: 4.0 cm IVSd: 1.2 cm LVIDs: 2.6 cm EDV(Teich): 61.6 ml Ao root area: 12.6 cm2 LVPWd: 1.2 cm ESV(Teich): 25.2 ml LA dimension: 4.2 cm EF(Teich): 59.0 % Doppler Measurements & Calculations MV E max carmenaz: MV P1/2t max carmenza: Ao V2 max: LV V1 max P.0 cm/sec 69.7 cm/sec 93.4 cm/sec 1.9 mmHg MV A max carmenza: MV P1/2t: 28.1 msec Ao max P.5 mmHg LV V1 max: 51.5 cm/sec MVA(P1/2t): 7.8 cm2 68.8 cm/sec MV E/A: 1.4 MV dec slope: 726.9 cm/sec2 MV dec time: 0.11 sec PA V2 max: TR max carmenza: MV P1/2t-pr_phl: 35.5 cm/sec 341.5 cm/sec 28.1 msec PA max PG: TR max P.6 mmHg 0.50 mmHg Left Ventricle The left ventricle is normal in size. There is mild concentric left ventricular hypertrophy. new PE. eval R heart strain. Doppler measurements suggest normal left ventricular diastolic function. There is no thrombus. No ASD ,VSD .or PFO seen. Right Ventricle The right ventricle is severely dilated. The right ventricular systolic function is severely reduced. Atria The right atrium is moderate to severely dilated. The left atrium is mildly dilated. Mitral Valve There is no evidence of mitral valve prolapse. There is no vegetation seen on the mitral valve. There is no mitral valve stenosis. There is no mitral regurgitation noted. Aortic Valve There is no aortic valvular vegetation. There is no aortic valve stenosis. There is no LVOT obstruction. No aortic regurgitation is present. Tricuspid Valve There is no tricuspid stenosis. Probably mild TR.RVSP is at least 67 mm of Hg , with a RA mean of at least 29. There is servere pulmonary hypertension by echo. Pulmonic Valve There is no pulmonic valvular stenosis. There is no pulmonic valvular regurgitation. Great Vessels The aortic root is mildly dilated. The inferior vena cava appeared dilated and did not change with respiration (RAP > 20 mmHg). Effusions There is no pericardial effusion. : YANET VALDES > Simran Contreras
[2019-02-25] MEDS: ALPRAZOLAM 0.25 MG TABLET PO PRN ×2 (04:40→10:40)
[2019-02-25] MEDS: ACETAMINOPHEN 325 MG TABLET PO PRN ×2 (04:41→10:41)
[2019-02-25 05:17] LABS: HEMATOCRIT 33.9 % (37.9-51.0); HEMOGLOBIN 11.3 g/dL (13.5-17.0); MEAN CORPUSCULAR HEMOGLOBIN 31.8 pg (27.0-33.4); MEAN CORPUSCULAR HGB CONC 33.2 g/dL (32.0-36.0); MEAN CORPUSCULAR VOLUME 96 fl (80-97); PLATELET COUNT 246 10^3/uL (150-450); RED BLOOD COUNT 3.55 10^6/uL (4.35-5.55); RED CELL DISTRIBUTION WIDTH 14.4 % (11.5-14.0); WHITE BLOOD COUNT 12.4 10^3/uL (4.0-10.5)
--- NOTE | 2019-02-25 07:26 | PDOC PROGRESS REPORT ---
Subjective Progress Note for:: 02/25/19 Subjective:: Patient states that he slept better last night. His breathing is "a bit labored" today. He denies any evidence of bleeding. ROS: No BM x 3 days. No headache. Reason For Visit: CYSTITIS, HYPOTENSION, RECENT GI BLEED Physical Exam Vital Signs: Temp Pulse Resp BP Pulse Ox 97.6 F 113 H 20 101/70 99 02/25/19 03:11 02/25/19 03:11 02/25/19 03:11 02/25/19 03:11 02/25/19 03:11 Intake & Output 02/24/19 02/25/19 02/26/19 06:59 06:59 06:59 Intake Total 474 640 Output Total 1130 800 Balance -656 -160 Weight 103.3 kg 111.1 kg General appearance: PRESENT: mild distress Head exam: PRESENT: normocephalic Extremities exam: PRESENT: other - Right LE larger than Left LE Neurological exam: PRESENT: alert, awake Psychiatric exam: PRESENT: depressed Skin exam: PRESENT: normal color Results Laboratory Results: 02/25/19 04:45 02/24/19 06:05 02/25/19 04:45 WBC 12.4 H RBC 3.55 L Hgb 11.3 L Hct 33.9 L MCV 96 MCH 31.8 MCHC 33.2 RDW 14.4 H Plt Count 246 02/19/19 18:50 Blood Blood Culture - Final NO GROWTH IN 5 DAYS 02/19/19 17:00 Blood Blood Culture - Final NO GROWTH IN 5 DAYS 02/19/19 02/22/19 02/22/19 17:00 10:06 10:06 Creatine Kinase 37 L CK-MB (CK-2) 1.21 Troponin I 0.181 0.093 NT-Pro-B Natriuret Pep 02/22/19 02/22/19 02/24/19 10:06 15:40 06:05 Creatine Kinase CK-MB (CK-2) Troponin I 0.082 NT-Pro-B Natriuret Pep 7150 H 00143 H 02/25/19 04:45 Creatine Kinase CK-MB (CK-2) Troponin I NT-Pro-B Natriuret Pep 27621 H Impressions: Chest X-Ray 02/22/19 14:26 IMPRESSION: Probable scarring or atelectasis of the lingula. No new airspace opacity. Cardiomegaly. Chest/Abdomen CTA 02/22/19 15:34 IMPRESSION: Large volume of emboli visualized in the main pulmonary arteries an d the segmental branches.Small right pleural effusion. Minimal basilar subsegmental atelectasis. Assessment & Plan - Diagnosis (1) Acute cystitis with hematuria Is this a current diagnosis for this admission?: Yes Plan: bleeding needs to be evaluated and hopefully stopped before oral anticoagulation will be safe long-term. He will need further urology work-up. (2) Homeless Is this a current diagnosis for this admission?: Yes (3) Pulmonary emboli Qualifiers: Pulmonary embolism type: unspecified Chronicity: acute Acute cor pulmonale presence: without acute cor pulmonale Qualified Code(s): I26.99 - Other pulmonary embolism without acute cor pulmonale Is this a current diagnosis for this admission?: Yes Plan: Currently causing hypoxia, dyspnea, and apparent right heart dysfunction. Continue heparin drip for now. Watch very closely for evidence of bleeding. Currently, HGB remains stable, despite active bleeding. (4) Upper GI bleed Is this a current diagnosis for this admission?: Yes Plan: EGD was negative, but colonoscopy and Small bowel evaluation have not been done to search for source of blood loss. Again, all bleeding needs to stop before long-term anticoagulation will be safe. - Plan Summary Plan Summary: I discussed with Augusta Mejía. Although he has been bed bound for quite some time and DVT could be provoked, an underlying malignancy could also be possible. I would check CT A/P as well. She will arrange.
[2019-02-25] MEDS: INSULIN LISPRO 100 UNIT/ML 3 ML VIAL SUBCUT SCH ×2 (08:25→13:08)
[2019-02-25] MEDS: TIOTROPIUM BROMIDE DPI 5 CAP/KIT (18 MCG/CAP) IH SCH (09:29)
[2019-02-25] MEDS: SALMETEROL XINAFOATE DISKUS 50 MCG/1 DOSE 28 DOSE IH SCH (09:29)
[2019-02-25] MEDS: OXYBUTYNIN CHLORIDE 5 MG TABLET PO SCH (09:29)
[2019-02-25] MEDS: METFORMIN HCL 500 MG TABLET PO SCH (09:29)
[2019-02-25] MEDS: DOCUSATE SODIUM 100 MG CAPSULE PO SCH (09:29)
[2019-02-25] MEDS: LISINOPRIL 10 MG TABLET PO SCH (09:29)
[2019-02-25] MEDS: ATENOLOL 50 MG TABLET PO SCH (09:29)
[2019-02-25] MEDS: INSULIN GLARGINE,HUM.REC.ANLOG 1,000 UNIT/10 ML VIAL SUBCUT SCH (09:37)
[2019-02-25] MEDS: HEPARIN SODIUM,PORCINE/D5W 25,000 UNIT/250 ML RTUINJ IV PRN (09:38)
[2019-02-25] MEDS ORDERED: LEVOFLOXACIN 750 MG TABLET PO SCH (10:00)
[2019-02-25] MEDS ORDERED: FUROSEMIDE INJ/PF 20 MG/2 ML SDV IV SCH (10:00)
[2019-02-25] MEDS ORDERED: FUROSEMIDE 20 MG TABLET PO SCH (10:00)
--- NOTE | 2019-02-25 11:31 | RADIOLOGY REPORT (SQ) ---
EXAM DESCRIPTION: CT ABD/PELVIS WITH IV ONLY COMPLETED DATE/TIME: 02/25/2019 11:10 am REASON FOR STUDY: GI bleed, DVT/PE; ? malignancy COMPARISON: None. TECHNIQUE: CT scan of the abdomen and pelvis performed using helical scanning technique with dynamic intravenous contrast injection. No oral contrast. Images reviewed with lung, soft tissue, and bone windows. Reconstructed coronal and sagittal MPR images reviewed. Delayed images for evaluation of the urinary system also acquired. All images stored on PACS. All CT scanners at this facility use dose modulation, iterative reconstruction, and/or weight based d osing when appropriate to reduce radiation dose to as low as reasonably achievable (ALARA). [facility]: Dose Right [facility]: CareDose [facility]: Dose Right [facility]: Teradose 4D [facility]: Smart Technologies CONTRAST TYPE AND DOSE: Dose and contrast type not recorded here. Refer to fish technologist notes. RENAL FUNCTION: BUN 14 creatinine 0.72 RADIATION DOSE: CT Rad equipment meets quality standard of care and radiation dose reduction techniq ues were employed. CTDIvol: 20.8 - 20.9 mGy. DLP: 2251 mGy-cm.. LIMITATIONS: None. FINDINGS: LOWER CHEST: Small right pleural effusion with mild associated atelectasis in the right lo wer lobe. Cardiomegaly. Small pericardial effusion. LIVER: Normal size. No masses. No dilated ducts. SPLEEN: Normal size. No focal lesions. PANCREAS: No masses. No significant calcifications. No adjacent inflammation or peripancreatic fluid collections. Pancreatic duct not dilated. GALLBLADDER: There is generalized slightly increased attenuation of the gallbladder, possible milk of calcium. ADRENAL GLANDS: No significant masses or asymmetry. RIGHT KIDNEY AND URETER: No solid masses. No significant calcifications. No hydronephrosis or hyd roureter. LEFT KIDNEY AND URETER: No solid masses. No significant calcifications. No hydronephrosis or hydr oureter. AORTA AND VESSELS: No aneurysm. No dissection. Renal arteries, SMA, celiac without stenosis. RETROPERITONEUM: No retroperitoneal adenopathy, hemorrhage or masses. BOWEL AND PERITONEAL CAVITY: No masses or inflammatory changes. No free fluid or peritoneal masses. APPENDIX: Not identified. PELVIS: There is a Andrade catheter in the urinary bladder. No abnormal pelvic mass or fluid collectio n. ABDOMINAL WALL: There is thinning and laxity of the lateral abdominal wall musculature on the right. BONES: No significant or acute findings. OTHER: No other significant finding. IMPRESSION: 1. Cardiomegaly. Pericardial effusion. Small right pleural effusion. 2. Likely milk of calcium gallbladder. 3. Thinning and laxity of the lateral abdominal wall musculature on the right. 4. No acute findings. TECHNICAL DOCUMENTATION: JOB ID: [id number] Quality ID # [id number]: Final reports with documentation of one or more dose reduction techniques (e.g., Au tomated exposure control, adjustment of the mA and/or kV according to patient size, use of iterative reconstruction technique) 2010 [employer]- All Rights Reserved Reading location - IP/workstation name: [email or web address]
[2019-02-25 11:38] LABS: ARTERIAL BLOOD BASE EXCESS -2.8 mmol/L; ARTERIAL BLOOD FIO2 3L; ARTERIAL BLOOD H2CO3 1.03 mmol/L (1.05-1.35); ARTERIAL BLOOD HCO3 21.2 mmol/L (20-24); ARTERIAL BLOOD O2 SATURATION 96.1 % (94-98); ARTERIAL BLOOD PCO2 34.3 mmHg (35-45); ARTERIAL BLOOD PH 7.41 (7.35-7.45); ARTERIAL BLOOD PO2 80.8 mmHg (80-100); ARTERIAL BLOOD TOTAL CO2 22.3 mmol/L (23-27)
[2019-02-25] MEDS ORDERED: DEXTROSE 40% GEL 15 GM TUBE PO PRN ×2 (13:10)
[2019-02-25] MEDS ORDERED: DEXTROSE 50%-WATER 25 GM/50 ML DISP.SYRIN IV PRN ×2 (13:10)
[2019-02-25] MEDS ORDERED: GLUCAGON,HUMAN RECOMB 1 MG INJ SUBCUT PRN (13:10)
[2019-02-25] MEDS ORDERED: ONDANSETRON HCL INJ/PF 4 MG/2 ML SDV IV PRN (13:30)
[2019-02-25] MEDS ORDERED: PROMETHAZINE HCL INJ 25 MG/1 ML VIAL IV PRN (13:30)
--- NOTE | 2019-02-25 13:40 | PDOC TRANSFER SUMMARY ---
General Admission Date/PCP: 02/19/19 18:20 Admission Date: 02/19/19 Transfer Date: 02/25/19 [facility] Accepting Physician: Dr. Cortez Lancaster Resuscitation Status: Do Not Resuscitate - Transfer Diagnosis (1) Pulmonary emboli Is this a current diagnosis for this admission?: Yes Diagnosis Summary: CTA chest revealed large volume emboli visualized in the main pulmonary arteries and the segmental branches. Well's criteria for PE 3 (relative risk 27.8%) Was not on DVT PPX due to recent GI bleed, hematuria and hemmoccult ECHOcardiogram Confirms right side heart strain with a severely dilated right ventricle, moderately to severely dilated right atrium, with severely reduced right ventricular systolic dysfunction and severe pulmonary hypertension. The patient was admitted to [facility] on continuous cardiac telemetry and pulse oximetry. He was placed on a heparin drip for management of his pulmonary embolus and right femoral vein DVT. He is supported with supplemental oxygen and as needed nebulizer treatments. Hematology/oncology was consulted; recommend continuing malignancy surveillance with CT abdomen and pelvis which fortunately was negative for gross malignancy. She also recommends colonoscopy and cystoscopy. Discussed with Dr. Gimenez (interventional radiology) at [facility] today. He jesse reviewed the patient's imaging and believes the patient to be a candidate for Ekos at their facility. Dr. Lancaster, conductor yard, has graciously agreed to accept this patient for continued care and management. (2) Acute respiratory failure Is this a current diagnosis for this admission?: Yes Diagnosis Summary: Secondary to #1. Patient is currently maintaining oxygen saturation in the mid 90s on s upplemental oxygen via nasal cannula at 3 L/min. He continues to have tachypnea with respiratory rate averaging in the low to mid 20s and tachycardia with heart rate of 110. Evaluation and management of pulmonary embolus as above. (3) Acute cystitis with hematuria Is this a current diagnosis for this admission?: Yes Diagnosis Summary: UA indicative of UTI: Large amount of WBCs, RBCs, leukoesterase Chronic indwelling Andrade catheter following recent TURP; Andrade catheter exchanged in emergency department Urine cultures show Enterococcus faecalis, sensitive to Levaquin. Patient was empirically placed on IV Rocephin; this was transitioned to Levaquin upon results of urine culture results. Day #3 of appropriate therapy. Patient continues to have intermittent pink-tinged urine with scant clots. (4) Hyperkalemia Is this a current diagnosis for this admission?: Yes Diagnosis Summary: Resolved. Potassium improved 5.3-->5.7-->4.5-> 4.3 previously taking KCl supplements; currently discontinued Now s/p 1 dose of Kayexalate (5) DM type 2 (diabetes mellitus, type 2) Is this a current diagnosis for this admission?: Yes Diagnosis Summary: Home dose metformin and glipizide on hold. Glucose is well controlled with Accu-Cheks before meals and at bedtime with Humalog sliding scale insulin (6) Hypertension Is this a current diagnosis for this admission?: Yes Diagnosis Summary: PMH HTN Blood pressure well controlled on home dose atenolol and lisinopril (7) Upper GI bleed Is this a current diagnosis for this admission?: Yes Diagnosis Summary: Recent hospitalization for upper GI bleed POC occult stool negative but occult stool performed by lab was positive Hemoglobin stable. Continue PPI Discussed with Dr. Mackenzie today; patient is not currently stable for colonoscopy. (8) Urinary retention Is this a current diagnosis for this admission?: Yes Diagnosis Summary: Andrade catheter was in place following TURP, placed by urologist Discharged to [facility] on oxybutynin, will continue at this time Andrade catheter exchanged in the emergency department during this visit (9) Dysphagia Is this a current diagnosis for this admission?: Yes Diagnosis Summary: Patient reports difficulty swallowing and frequent cough with all consistency liquids and foods. No prior history of dysphasia. Speech therapy was consulted; however, did not have opportunity to provide assessment prior to patient's transfer. At time of transfer patient is placed in n.p.o. status in anticipation of Ekos procedure upon [facility]. (10) Depression Is this a current diagnosis for this admission?: Yes Diagnosis Summary: Patient denies history of depression however, he is noted to have a flat affect and does engage when attempting to discuss future planning regarding disposition. The patient indicates that he has financial means to obtain long-term care placement, however chooses to live in his vehicle. Unfortunately vehicle has been impounded. When asked what his plans are, he simply stops talking. It is unclear whether or not the patient is in denial versus depression versus lacks capacity for effective decision-making. Spoke with daughter today, unclear family dynamic; suspect poor support system. Mental health services were consulted, unfortunately, they did not have the opportunity to meet with the patient prior to his transfer. (11) Homeless Is this a current diagnosis for this admission?: Yes - Transfer Medications Home Medications: Glipizide [Glucotrol 5 mg Tablet] 10 mg PO DAILY 02/14/19 Lisinopril [Prinivil 10 mg Tablet] 10 mg PO DAILY 02/14/19 Metformin HCl 1,000 mg PO BIDBS 02/14/19 Nicotine [Nicoderm 14 mg/24 Hr Transdermal Patch] 1 patch TD DAILY 02/14/19 Oxybutynin Chloride [Oxybutynin Chloride ER] 10 mg PO BID 02/14/19 Potassium Chloride [Klor-Con 10 Meq Capsule ER] 10 meq PO DAILY 02/14/19 Acetaminophen [Tylenol 325 mg Tablet] 325 mg PO Q4HP PRN 02/19/19 Transfer Medications: Current Medications Acetaminophen (Tylenol 325 Mg Tablet) 650 mg PO Q4HP PRN PRN Reason: FOR PAIN OR TEMP Stop: 03/21/19 18:26 Last Admin: 02/25/19 10:41 Dose: 650 mg Documented by: Acetaminophen (Tylenol 650 Mg Supp) 650 mg FL Q4HP PRN PRN Reason: FOR PAIN OR TEMP Stop: 03/21/19 18:26 Al Hydrox/Mg Hydrox/Simethicone (Maalox Plus Susp 30 Udcup) 15 ml PO Q6HP PRN PRN Reason: HEARTBURN Stop: 03/21/19 18:26 Albuterol (Proair Hfa Inhalation Aerosol 8.5 Gm Mdi) 2 puff IH Q4HP PRN PRN Reason: FOR WHEEZING Stop: 03/24/19 14:46 Alprazolam (Xanax 0.25 Mg Tablet) 0.25 mg PO Q4HP PRN PRN Reason: ANXIETY Stop: 03/01/19 14:43 Last Admin: 02/25/19 10:40 Dose: 0.25 mg Documented by: Atenolol (Tenormin 50 Mg Tablet) 25 mg PO Q12 SALLY Stop: 03/21/19 21:59 Last Admin: 02/25/19 09:29 Dose: 25 mg Documented by: Dextrose (Dextrose Inj 50% Syringe (25 Gm/50 Ml)) 25 gm IV PRN PRN; Protocol PRN Reason: PER PROTOCOL Stop: 03/21/19 18:46 Dextrose (Dextrose Inj 50% Syringe (25 Gm/50 Ml)) 12.5 gm IV PRN PRN; Protocol PRN Reason: FOR BG 50-69 IN ALERT PATIENT Stop: 03/21/19 18:46 Docusate Sodium (Colace 100 Mg Capsule) 100 mg PO BID [facility] Stop: 03/22/19 09:59 Last Admin: 02/25/19 09:29 Dose: 100 mg Documented by: Furosemide (Lasix Inj/Pf 20 Mg/2 Ml Sdv) 20 mg IV Q12 [facility] Stop: 03/27/19 09:59 Last Admin: 02/25/19 10:41 Dose: 20 mg Documented by: Glucagon (Glucagen Inj 1 Mg Vial) 1 mg IM PRN PRN; Protocol PRN Reason: Evaluate for BG < 70 Stop: 03/21/19 18:46 Glucose (Glutose 40% Gel 15 Gm Tube) 15 gm PO PRN PRN; Protocol PRN Reason: FOR BG 50-69 IN ALERT PATIENT Stop: 03/21/19 18:46 Glucose (Glutose 40% Gel 15 Gm Tube) 30 gm PO PRN PRN; Protocol PRN Reason: FOR BG < 50 IN ALERT PATIENT Stop: 03/21/19 18:46 Heparin Sodium (Porcine) (Heparin Inj 1,000 Unit/Ml 10 Ml Vial) 0 - 15,000 unit IV .BOLUS PER PROTOCOL PRN; Protocol PRN Reason: RESPOND TO aPTT VALUES Stop: 03/24/19 18:29 Last Admin: 02/22/19 19:31 Dose: 8,304 units Documented by: Heparin Sodium/Dextrose (Heparin Rtu 25,000 Unit/250 Ml D5w Premix) 25,000 unit in 250 mls @ 0 mls/hr IV .CONTINUOUS PRN; Protocol PRN Reason: THIS MED IS NOT "PRN" Stop: 03/24/19 18:29 Last Admin: 02/25/19 09:38 Dose: 13.49 mls/hr, 13.49 mls/hr Documented by: Insulin Glargine (Lantus Insulin 100 Unit/1 Ml 10 Ml) 10 unit SUBCUT DAILY [facility] Stop: 03/23/19 10:59 Last Admin: 02/25/19 09:37 Dose: 10 unit Documented by: Insulin Human Lispro (Humalog Insulin 100 Unit/1 Ml 3 Ml Vial) 0 - 12 unit SUBCUT [facility]; Protocol Stop: 03/23/19 10:59 Last Admin: 02/25/19 08:25 Dose: Not Given Documented by: Levalbuterol HCl (Xopenex Neb 1.25 Mg/3 Ml Ampul) 1.25 mg NEB RTQ4HP PRN PRN Reason: SHORTNESS OF BREATH Stop: 03/24/19 15:31 Last Admin: 02/24/19 23:42 Dose: 1.25 mg Documented by: Levofloxacin (Levaquin 750 Mg Tablet) 750 mg PO DAILY [facility] Stop: 03/04/19 09:59 Last Admin: 02/25/19 09:29 Dose: 750 mg Documented by: Lisinopril (Prinivil 10 Mg Tablet) 10 mg PO DAILY [facility] Stop: 03/22/19 09:59 Last Admin: 02/25/19 09:29 Dose: 10 mg Documented by: Metformin HCl ([facility] 500 Mg [facility]t) [facility] Stop: 03/22/19 07:59 Last Admin: 02/25/19 09:29 Dose: 1,000 mg Documented by: Nicotine (Nicoderm 14 Mg/24 Hr Transdermal Patch) 1 each TD DAILYP PRN PRN Reason: WITHDRAWAL SYMPTOMS Stop: 03/22/19 05:40 Last Admin: 02/22/19 10:20 Dose: 1 each Documented by: Nitroglycerin (Nitrostat 0.4 Mg (1/150 Gr) Tabs 25/Bottle) 1 tab SL Q5MP PRN PRN Reason: FOR CHEST PAIN Stop: 03/24/19 13:44 Ondansetron HCl (Zofran Inj/Pf 4 Mg/2 Ml Sdv) 4 mg IV Q4HP PRN PRN Reason: FOR NAUSEA/VOMITING Stop: 03/21/19 18:26 Oxybutynin Chloride (Ditropan 5 Mg Tablet) 10 mg PO BID [facility] Stop: 03/22/19 09:59 Last Admin: 02/25/19 09:29 Dose: 10 mg Documented by: Promethazine HCl (Phenergan Inj 25 Mg/1 Ml Vial) 12.5 mg IV Q4HP PRN PRN Reason: FOR NAUSEA/VOMITING Stop: 03/21/19 18:26 Salmeterol Xinafoate (Serevent Diskus 50 Mcg/Dose 28 Dose/Diskus) 50 mcg IH Q12 SALLY Stop: 03/24/19 21:59 Last Admin: 02/25/19 09:29 Dose: 50 mcg Documented by: Tiotropium Lissie (Spiriva Handihaler 5 Cap/Kit (18 Mcg/Cap)) 1 cap IH DAILY SALLY Stop: 03/24/19 17:59 Last Admin: 02/25/19 09:29 Dose: 1 cap Documented by: - Allergies Allergies/Adverse Reactions: No Known Allergies Allergy (Verified 02/14/19 16:14) - Diet/Activity Discharge Diet: Other (Comments) - NPO for EKOS Discharge Activity: Activity As Tolerated, Energy Conservation Physical Exam Vital Signs: Temp Pulse Resp BP Pulse Ox 97.6 F 111 H 20 101/70 96 02/25/19 03:11 02/25/19 07:00 02/25/19 03:11 02/25/19 03:11 02/25/19 08:00 Intake & Output 02/24/19 02/25/19 02/26/19 06:59 06:59 06:59 Intake Total 474 640 224 Output Total 1130 800 Balance -656 -160 224 Weight 103.3 kg 111.1 kg General appearance: PRESENT: no acute distress, cooperative, obese, well- developed, well-nourished Head exam: PRESENT: atraumatic, normocephalic Eye exam: PRESENT: conjunctiva pale, EOMI, PERRLA. ABSENT: scleral icterus Ear exam: PRESENT: normal external ear exam Mouth exam: PRESENT: moist, tongue midline Neck exam: ABSENT: carotid bruit, JVD, lymphadenopathy, thyromegaly Respiratory exam: PRESENT: clear to auscultation mackenzie, symmetrical, tachypnea, unlabored, other - Supplemental oxygen via nasal cannula.. ABSENT: rales, rhonchi, wheezes Cardiovascular exam: PRESENT: RRR, +S1, +S2, tachycardia. ABSENT: diastolic murmur, rubs, systolic murmur Pulses: PRESENT: normal dorsalis pedis pul Vascular exam: PRESENT: normal capillary refill GI/Abdominal exam: PRESENT: normal bowel sounds, soft. ABSENT: distended, guarding, mass, organolmegaly, rebound, tenderness Rectal exam: PRESENT: deferred Gentrourinary exam: PRESENT: indwelling catheter Extremities exam: PRESENT: full ROM. ABSENT: calf tenderness, clubbing, pedal edema Neurological exam: PRESENT: alert, awake, oriented to person, oriented to place, oriented to time, oriented to situation, CN II-XII grossly intact. ABSENT: motor sensory deficit Psychiatric exam: PRESENT: depressed, flat affect, normal mood. ABSENT: ho micidal ideation, suicidal ideation Skin exam: PRESENT: dry, intact, warm. ABSENT: cyanosis, rash Results Laboratory Results: 02/25/19 04:45 02/24/19 06:05 02/25/19 02/25/19 04:45 11:23 WBC 12.4 H RBC 3.55 L Hgb 11.3 L Hct 33.9 L MCV 96 MCH 31.8 MCHC 33.2 RDW 14.4 H Plt Count 246 Carbonic Acid 1.03 L HCO3/H2CO3 Ratio 20:1 ABG pH 7.41 ABG pCO2 34.3 L ABG pO2 80.8 ABG HCO3 21.2 ABG O2 Saturation 96.1 ABG Base Excess -2.8 FiO2 3L 02/19/19 18:50 Blood Blood Culture - Final NO GROWTH IN 5 DAYS 02/19/19 17:00 Blood Blood Culture - Final NO GROWTH IN 5 DAYS 02/19/19 02/22/19 02/22/19 17:00 10:06 10:06 Creatine Kinase 37 L CK-MB (CK-2) 1.21 Troponin I 0.181 0.093 NT-Pro-B Natriuret Pep 02/22/19 02/22/19 02/24/19 10:06 15:40 06:05 Creatine Kinase CK-MB (CK-2) Troponin I 0.082 NT-Pro-B Natriuret Pep 7150 H [id number] H 02/25/19 04:45 Creatine Kinase CK-MB (CK-2) Troponin I NT-Pro-B Natriuret Pep [id number] H Impressions: Chest X-Ray 02/22/19 14:26 IMPRESSION: Probable scarring or atelectasis of the lingula. No new airspace opacity. Cardiomegaly. Chest/Abdomen CTA 02/22/19 15:34 IMPRESSION: Large volume of emboli visualized in the main pulmonary arteries and the segmental branches.Small right pleural effusion. Minimal basilar subsegmental atelectasis. Abdomen/Pelvis CT 02/25/19 00:00 IMPRESSION: 1. Cardiomegaly. Pericardial effusion. Small right pleural effusion. 2. Likely milk of calcium gallbladder. 3. Thinning and laxity of the lateral abdominal wall musculature on the right. 4. No acute findings. Plan Discharge Plan: [facility] under the care of Dr. Lancaster with Dr. Gimenez (interventional radiology) consulting for possible Ekos procedure. Time Spent: Greater than 30 Minutes
--- NOTE | 2019-02-25 15:06 | PDOC PROGRESS REPORT ---
Subjective Progress Note for:: 02/25/19 Subjective:: This is a 73 y/o male with a PMH of PAF, HTN, DM II, Hyperlipidemia, CVA, GERD, and recent TURP with indwelling catheter. He was recently hospitalized at [facility] for GI bleed and was discharged to [facility]. while at the [facility] he c/o not feeling well. He reported shortness of breath and fatigue. He was returned to [facility] 48 hours later with generalized malaise and was admitted for UTI. He had diagnostic testing that showed a large volume of emboli in the main pulmo nary arteries and the segmental branches. With his recent history of GI bleed, and noted to have had hematuria from his velasquez catheter on 02/23, DVT prophylaxis was held. A CT was done which showed large volume of emboli that were visualized in the main pulmonary artereis and the segmental branches. He was placed on a heparin gtt at that time. With PTT's done per protocol. Dr. Mann was consulted to manage anticoagulants and requested a CT be done and possibly Colonoscopy. Due to the patients large volume emboli there is concern that the patients procedural complications out weigh the benefits at this time. 1. Pulmonary Embolism: Reason For Visit: CYSTITIS, HYPOTENSION, RECENT GI BLEED Physical Exam Vital Signs: Temp Pulse Resp BP Pulse Ox 97.6 F 111 H 20 101/70 99 02/25/19 03:11 02/25/19 07:00 02/25/19 03:11 02/25/19 03:11 02/25/19 03:11 Intake & Output 02/24/19 02/25/19 02/26/19 06:59 06:59 06:59 Intake Total 474 640 224 Output Total 1130 800 Balance -656 -160 224 Weight 103.3 kg 111.1 kg General appearance: PRESENT: cooperative, disheveled Head exam: PRESENT: atraumatic Eye exam: PRESENT: conjunctiva pink Ear exam: PRESENT: normal external ear exam Mouth exam: PRESENT: dry mucosa Neck exam: PRESENT: full ROM Respiratory exam: PRESENT: crackles, decreased breath sounds, symmetrical Cardiovascular exam: PRESENT: gallop, +S1 Pulses: PRESENT: +1 pedal pulses bilateral Vascular exam: PRESENT: pallor GI/Abdominal exam: PRESENT: normal bowel sounds, soft Rectal exam: PRESENT: deferred Gentrourinary exam: PRESENT: indwelling catheter - rimma urine with sediment Extremities exam: PRESENT: full ROM, +1 edema - right DP and PT, Neurological exam: PRESENT: alert, oriented to person, oriented to time, oriented to situation Psychiatric exam: PRESENT: depressed, flat affect Skin exam: PRESENT: dry, pallor Results Laboratory Results: 02/25/19 04:45 02/24/19 06:05 02/25/19 04:45 WBC 12.4 H RBC 3.55 L Hgb 11.3 L Hct 33.9 L MCV 96 MCH 31.8 MCHC 33.2 RDW 14.4 H Plt Count 246 02/19/19 18:50 Blood Blood Culture - Final NO GROWTH IN 5 DAYS 02/19/19 17:00 Blood Blood Culture - Final NO GROWTH IN 5 DAYS 02/19/19 02/22/19 02/22/19 17:00 10:06 10:06 Creatine Kinase 37 L CK-MB (CK-2) 1.21 Troponin I 0.181 0.093 NT-Pro-B Natriuret Pep 02/22/19 02/22/19 02/24/19 10:06 15:40 06:05 Creatine Kinase CK-MB (CK-2) Troponin I 0.082 NT-Pro-B Natriuret Pep 7150 H 83140 H 02/25/19 04:45 Creatine Kinase CK-MB (CK-2) Troponin I NT-Pro-B Natriuret Pep 05386 H Impressions: Chest X-Ray 02/22/19 14:26 IMPRESSION: Probable scarring or atelectasis of the lingula. No new airspace opacity. Cardiomegaly. Chest/Abdomen CTA 02/22/19 15:34 IMPRESSION: Large volume of emboli visualized in the main pulmonary arteries and the segmental branches.Small right pleural effusion. Minimal basilar subsegmental atelectasis. Assessment and Plan - Diagnosis (1) Acute cystitis with hematuria Is this a current diagnosis for this admission?: Yes Plan: UA indicative of UTI: Large amount of WBCs, RBCs, leukoesterase Chronic indwelling Velasquez catheter following recent TURP Velasquez catheter exchanged in emergency department Urine cultures show Enterococcus faecalis, sensitive to Levaquin. Patient was empirically placed on IV Rocephin; this was transitioned to IV Levaquin upon results of urine culture results. Will transition to p.o. Levaquin as the patient remains afebrile and leukocytosis continues to trend down. (2) Acute respiratory failure Qualifiers: Respiratory failure complication: hypercapnia Qualified Code(s): J96.02 - Acute respiratory failure with hypercapnia Is this a current diagnosis for this admission?: Yes Plan: Secondary to #1. Management as above. Supplemental O2 for SPO2>92% (3) Depression Qualifiers: Depression Type: reactive depression Qualified Code(s): F32.9 - Major depressive disorder, single episode, unspecified Is this a current diagnosis for this admission?: Yes Plan: Patient denies history of depression however, he is noted to have a flat affect and does engage when attempting to discuss future planning regarding dispositi on. The patient indicates that he has financial means to obtain long-term care placement, however chooses to live in his vehicle. Unfortunately vehicle has been impounded. When asked what his plans are, he simply stops talking. It is unclear whether or not the patient is in denial versus depression versus lacks capacity for effective decision-making. We will ask mental health services to evaluate. (4) Dysphagia Is this a current diagnosis for this admission?: Yes Plan: Patient reports difficulty swallowing and frequent cough with all consistency liquids and foods. History of dysphasia. We will ask speech therapy to evaluate and provide recommendations. (5) Elevated troponin Is this a current diagnosis for this admission?: Yes (6) Homeless Is this a current diagnosis for this admission?: Yes Plan: Discharge planning is consulted. (7) Hyperkalemia Is this a current diagnosis for this admission?: Yes Plan: Resolved Potassium improved initially, this am 5.3-->5.7-->4.5-> 4.3 previously taking KCl supplements; currently discontinued Monitor electrolytes with daily chemistries (9) Pulmonary emboli Qualifiers: Pulmonary embolism type: unspecified Chronicity: acute Acute cor pulmonale presence: without acute cor pulmonale Qualified Code(s): I26.99 - Other pulmonary embolism without acute cor pulmonale Is this a current diagnosis for this admission?: Yes Plan: Seen on CTA Multiple emboli in main pulmonary arteries and segmental branches Well's criteria for PE 3 (relative risk 27.8%) Was not on DVT PPX due to recent GI bleed, hematuria and hemmoccult ECHOcardiogram ordered to evaluate possible R heart strain, results pending Venous doppler revealed extensive acute DVT in the right femoral veins. Continue heparin gtt, will ask hematology for guidance on appropriate anticoagulation given the patient's current/ongoing hematuria and lack of brit ncial means. Continue supplemental oxygen as needed to maintain saturations >90%. Incentive spirometer. Heme-onc has been consulted; appreciate their evaluation recommendations. Discharge planning has been consulted. (10) DM type 2 (diabetes mellitus, type 2) Qualifiers: Diabetes mellitus fpc insulin use: without fpc use Diabetes mellitus complication status: without complication Qualified Code(s): E11.9 - Type 2 diabetes mellitus without complications Is this a current diagnosis for this admission?: Yes Plan: Home dose metformin and glipizide on hold. Accu-Cheks before meals and at bedtime with Humalog sliding scale insulin Hypoglycemia protocol in place. (12) Hypertension Qualifiers: Hypertension type: essential hypertension Qualified Code(s): I10 - Essential (primary) hypertension Is this a current diagnosis for this admission?: Yes Plan: PMH HTN Blood pressure well controlled on home dose atenolol and lisinopril (13) Upper GI bleed Is this a current diagnosis for this admission?: Yes Plan: Recent hospitalization for upper GI bleed Continue PPI + hematuria on admission POC occult stool negative but occult stool performed by lab was positive Hemoglobin stable. We will ask hematology for guidance on anticoagulation choice given patient's recent upper GI bleed and hematuria.
[2019-02-25 16:12] VITALS: BP 121/73
== END 2019-02-25 17:03 | disposition short-term general hospital (02) | DRG 689 ==
LOC: ER 11:33 → EH 18:20 → 3W 21:30
PROVIDERS: ADMIT Hospitalist; ATTEND Hospitalist
DX: N30.01 Acute cystitis with hematuria (principal); I26.99 Other pulmonary embolism without acute cor pulmonale; J96.02 Acute respiratory failure with hypercapnia; I82.411 Acute embolism and thrombosis of right femoral vein; K92.2 Gastrointestinal hemorrhage, unspecified; E78.00 Pure hypercholesterolemia, unspecified; I10 Essential (primary) hypertension; E11.8 Type 2 diabetes mellitus with unspecified complications; K21.9 Gastro-esophageal reflux disease without esophagitis; E87.5 Hyperkalemia; R33.9 Retention of urine, unspecified; R13.10 Dysphagia, unspecified; F32.9 Major depressive disorder, single episode, unspecified; I27.20 Pulmonary hypertension, unspecified; R42 Dizziness and giddiness; Z79.84 Long term (current) use of oral hypoglycemic drugs; Z79.899 Other long term (current) drug therapy; Z59.0 Homelessness
CPT/HCPCS: 36415; 71045; 71275; 74177; 80048; 80053; 81001; 82272; 82550; 82553; 82803; 82962; 83036; 83605; 83690; 83735; 83880; 84100; 84484; 85025; 85027; 85610; 85730; 87040; 87086; 87088; 87186; 93005; 93010; 93306; 93970; 96361; 96374; 96375; 99285; J0696; J1644; J1815; J1940; J1956; J2270; J3490; J7030; S0164

== ENCOUNTER 2019-05-07 12:57 | Emergency (ER) | payer MEDICARE ==
--- NOTE | 2019-05-07 14:02 | ER Document Report ---
ED Medical Screen (RME) - General Chief Complaint: Headache <24 hrs old Stated Complaint: HEADACHE Time Seen by Provider: 05/07/19 13:59 Mode of Arrival: Medic Information source: Patient Notes: 73-year-old male presented to ED for headache yesterday with an stiff neck. He states that his blood pressures been up to as high as 195/104 and his pulse is been everywhere from 41-58. His pulse is 53 in the emergency room and his blood pressure is 163/63. Patient is alert oriented and answering all questions appropriate. is at the bedside very upset that nothing is been done for him yet. He is on a monitor with blood pressures being monitored. He states he was supposed to have a doctor's appointment with [facility] tomorrow but [facility] said [facility] was not one scheduled for tomorrow. I have greeted and performed a rapid initial assessment of this patient. A comprehensive ED assessment and evaluation of the patient, analysis of test results and completion of medical decision making process will be conducted by an additional ED providers. TRAVEL OUTSIDE OF THE [place] IN LAST 30 DAYS: No - Related Data Allergies/Adverse Reactions: No Known Allergies Allergy (Verified 05/07/19 13:23) Past Medical History - Past Medical History Cardiac Medical History: Reports: Hx Hypercholesterolemia, Hx Hypertension Denies: Hx Atrial Fibrillation, Hx Congestive Heart Failure, Hx Coronary Artery Disease, Hx Heart Attack Pulmonary Medical History: Denies: Hx Asthma, Hx COPD, Hx Respiratory Failure, Hx Sleep Apnea Endocrine Medical History: Reports: Hx Diabetes Mellitus Type 2 Renal/ Medical History: Denies: Hx Peritoneal Dialysis GI Medical History: Reports: Hx Gastroesophageal Reflux Disease Musculoskeltal Medical History: Reports Hx Arthritis Psychiatric Medical History: Denies: Hx Dementia, Hx Depression Past Surgical History: Reports: Hx Tonsillectomy, Hx Urinary Tract Surgery, Other - TURP Physical Exam - Vital signs Vitals: Temp Pulse Resp BP Pulse Ox 97.7 F 43 L 18 172/63 H 98 05/07/19 13:11 05/07/19 13:11 05/07/19 13:11 05/07/19 13:11 05/07/19 13:11 Course - Vital Signs Vital signs: Temp Pulse Resp BP Pulse Ox 97.7 F 43 L 13 172/63 H 98 05/07/19 13:11 05/07/19 13:11 05/07/19 13:21 05/07/19 13:11 05/07/19 13:21
[2019-05-07 15:31] LABS: ABSOLUTE EOSINOPHILS # (AUTO) 0.3 10^3/uL (0.0-0.6); ABSOLUTE LYMPHOCYTES (AUTO) 1.3 10^3/uL (0.5-4.7); ABSOLUTE MONOCYTES (AUTO) 0.7 10^3/uL (0.1-1.4); ABSOLUTE NEUT (AUTO) 6.2 10^3/uL (1.7-8.2); BASOPHILS % (AUTO) 0.5 % (0-2); HEMATOCRIT 31.1 % (37.9-51.0); HEMOGLOBIN 10.4 g/dL (13.5-17.0); LYMPHOCYTES % (AUTO) 15.6 % (13-45); MEAN CORPUSCULAR HEMOGLOBIN 31.3 pg (27.0-33.4); MEAN CORPUSCULAR HGB CONC 33.3 g/dL (32.0-36.0); MEAN CORPUSCULAR VOLUME 94 fl (80-97); MONOCYTES % (AUTO) 8.2 % (3-13); PLATELET COUNT 271 10^3/uL (150-450); RED CELL DISTRIBUTION WIDTH 16.2 % (11.5-14.0); SEGMENTED NEUTROPHILS % (AUTO) 72.7 % (42-78); TOTAL CELLS COUNTED % (AUTO) 100 %; WHITE BLOOD COUNT 8.5 10^3/uL (4.0-10.5)
[2019-05-07 15:32] LABS: INTERNATIONAL RATION (INR) 1.31; PROTHROMBIN TIME 16.4 SEC (11.4-15.4)
[2019-05-07 15:33] LABS: PARTIAL THROMBOPLASTIN TIME 35.8 SEC (23.5-35.8)
[2019-05-07 15:35] LABS: D-DIMER 1.46 ug/mL (0.00-0.50)
[2019-05-07 15:49] LABS: ALBUMIN 3.5 g/dL (3.5-5.0); ALKALINE PHOSPHATASE 87 U/L (38-126); ANION GAP 7 (5-19); ASPARTATE AMINO TRANSFERASE 18 U/L (17-59); BILIRUBIN,DIRECT 0.1 mg/dL (0.0-0.4); BILIRUBIN,TOTAL 0.4 mg/dL (0.2-1.3); BLOOD UREA NITROGEN 17 mg/dL (7-20); CALCIUM 8.7 mg/dL (8.4-10.2); CARBON DIOXIDE 28 mmol/L (22-30); CHLORIDE 107 mmol/L (98-107); CREATINE KINASE 49 U/L (55-170); GLUCOSE 103 mg/dL (75-110); POTASSIUM 4.4 mmol/L (3.6-5.0); TOTAL PROTEIN 6.2 g/dL (6.3-8.2)
--- NOTE | 2019-05-07 15:49 | RADIOLOGY REPORT (SQ) ---
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 RADIATION DOSE: NA LIMITATIONS: none FINDINGS: LUNGS AND PLEURA: Trace pleural fluid in the bilateral posterior costophrenic sulci. No acute infiltrates. No pneumothorax. MEDIASTINUM AND HILAR STRUCTURES: No masses or contour abnormalities. HEART AND VASCULAR STRUCTURES: Moderate cardiomegaly. Pulmonary vascular congestion. BONES: No acute findings. HARDWARE: None in the chest. OTHER: No other significant finding. IMPRESSION: Moderate cardiomegaly with pulmonary vascular congestion. No alveolar infiltrates worri some for pulmonary edema or pneumonia. Trace pleural effusions bilaterally. TECHNICAL DOCUMENTATION: JOB ID: [id number] [employer]- All Rights Reserved Reading location - IP/workstation name: [email or web address]
[2019-05-07 16:01] LABS: CREATINE KINASE MB 0.66 ng/mL (<4.55)
--- NOTE | 2019-05-07 16:01 | ER Document Report ---
ED General - General Chief Complaint: Headache <24 hrs old Stated Complaint: HEADACHE Time Seen by Provider: 05/07/19 13:59 Mode of Arrival: Medic TRAVEL OUTSIDE OF THE [place] IN LAST 30 DAYS: No - HPI Notes: Patient is a 73-year-old male who presents the emergency department for e valuation of multiple complaints. First he states that over the last several days his blood pressure has been high. He states that he has had numbers as high as 190s over 90s. Patient states that yesterday he woke up and developed some chest pressure. He describes it is diffuse across his anterior chest. He states he got up, got a drink of water, and it seemed to go away. Patient also relates a headache. 2 days ago he had a headache that was in his neck, radiated into his head. He states it is gone. He now has another headache that seems to have started on the left parietal area. It radiates up over his head. He currently rates it a 2 out of 10. He states that while he does not frequently get headaches, these headaches are not entirely out of the norm for him. He denies that they had a sudden start, states they were gradual. He states that he recently had 1 of his "cardiac medicines" doubled, but he is unable to tell me which one that might be. He denies believing it was his atenolol. - Related Data Allergies/Adverse Reactions: No Known Allergies Allergy (Verified 05/07/19 13:23) Past Medical History - General Information source: Patient - Social History Smoking Status: Former Smoker - LDL with Family History: Reviewed & Not Pertinent - Past Medical History Cardiac Medical History: Reports: Hx DVT, Hx Hypercholesterolemia, Hx Hypertension, Hx Pulmonary Embolism Denies: Hx Atrial Fibrillation, Hx Congestive Heart Failure, Hx Coronary Artery Disease, Hx Heart Attack Pulmonary Medical History: Denies: Hx Asthma, Hx COPD, Hx Respiratory Failure, Hx Sleep Apnea Neurological Medical History: Reports: Hx Cerebrovascular Accident - Ischemic Endocrine Medical History: Reports: Hx Diabetes Mellitus Type 2 Renal/ Medical History: Denies: Hx Peritoneal Dialysis GI Medical History: Reports: Hx Gastroesophageal Reflux Disease Musculoskeletal Medical History: Reports Hx Arthritis Psychiatric Medical History: Denies: Hx Dementia, Hx Depression Past Surgical History: Reports: Hx Tonsillectomy, Hx Urinary Tract Surgery, Other - TURP Review of Systems - Review of Systems Constitutional: No symptoms reported EENT: No symptoms reported Cardiovascular: See HPI Respiratory: No symptoms reported Gastrointestinal: No symptoms reported Genitourinary: No symptoms reported Musculoskeletal: No symptoms reported Skin: No symptoms reported Neurological/Psychological: See HPI Physical Exam - Vital signs Vitals: Temp Pulse Resp BP Pulse Ox 97.7 F 43 L 18 172/63 H 98 05/07/19 13:11 05/07/19 13:11 05/07/19 13:11 05/07/19 13:11 05/07/19 13:11 - Notes Notes: Vital signs reviewed, please refer to chart. Head is normocephalic, atraumatic. Pupils equal round, reactive to light. Neck is supple without meningismus. Heart is regular rhythm, bradycardic with normal S1-S2. Lungs are clear to auscultation bilaterally. Abdomen is soft, nontender, normoactive bowel sounds throughout. Extremities without cyanosis, clubbing. 1+ pitting edema to the ankles. Posterior calves are nontender. Peripheral pulses are equal. Skin is warm and dry. Patient is awake, alert, oriented x3. Cranial nerves II - XII are grossly intact without focal neurological deficits. Strength is plus 5 out of 5 bilateral upper and lower extremities. Sensation is intact. Reflexes symmetrical. Intact [id number], rapid alternating movements, [id number]. Course - Re-evaluation Re-evalutation: 05/07/19 21:04 Patient presents emergency department for evaluation. He complained of multiple complaints, particularly his blood pressure being elevated. He has had some recent medication changes. He did remain moderately hypertensive and mildly bradycardic throughout the course of his stay. His current blood pressure is 177/69 with a heart rate of 47. He shows no significant signs of endorgan damage. His CT of his head is unremarkable for anything acute. He was concerned his headaches could be related to his blood pressure. I do not believe they are. His headaches were generally different in nature at separate times. I do believe he will require further medication adjustment, but I do not see any indication for inpatient adjustments of those medications. The patient voiced understanding and was discharged. 05/07/19 21:05 I did note that there was moderate vascular congestion noted on chest x-ray. He is 98% on room air. He has absolutely no complaints of dyspnea. I am not primarily concerned that this is an issue at this time. - Vital Signs Vital signs: Temp Pulse Resp BP Pulse Ox 97.7 F 43 L 15 176/64 H 94 05/07/19 13:11 05/07/19 13:11 05/07/19 18:01 05/07/19 18:01 05/07/19 18:01 - Laboratory Result Diagrams: 05/07/19 15:10 05/07/19 15:10 Laboratory results interpreted by me: 05/07/19 05/07/19 05/07/19 15:10 15:10 15:10 RBC 3.30 L Hgb 10.4 L Hct 31.1 L RDW 16.2 H PT 16.4 H D-Dimer 1.46 H Creatine Kinase 49 L NT-Pro-B Natriuret Pep Total Protein 6.2 L Urine Protein Urine Blood Urine Nitrite Ur Leukocyte Esterase 05/07/19 05/07/19 15:10 18:15 RBC Hgb Hct RDW PT D-Dimer Creatine Kinase NT-Pro-B Natriuret Pep 1560 H Total Protein Urine Protein 100 H Urine Blood SMALL H Urine Nitrite POSITIVE H Ur Leukocyte Esterase MODERATE H - Diagnostic Test Radiology reviewed: Reports reviewed Radiology results interpreted by me: 05/07/19 21:05 Chest X-Ray 05/07/19 14:41 IMPRESSION: Moderate cardiomegaly with pulmonary vascular congestion. No alveolar infiltrates worrisome for pulmonary edema or pneumonia. Trace pleural effusions bilaterally. Head CT 05/07/19 15:52 IMPRESSION: MILD CHRONIC CHANGES OF ATROPHY AND MICROVASCULAR ISCHEMIA. NO ACUTE PROCESS. EVIDENCE OF ACUTE STROKE: NO. - EKG Interpretation by Me Additional EKG results interpreted by me: 05/07/19 21:06 Sinus bradycardia with a rate of 45 bpm. Normal axis and intervals. Nonspecific ST changes, but no acute changes concerning for ischemia or inf arction. Discharge - Discharge Clinical Impression: Hypertension Qualifiers: Hypertension type: unspecified Qualified Code(s): I10 - Essential (primary) hypertension Headache Qualifiers: Headache type: unspecified Headache chronicity pattern: unspecified pattern Intractability: not intractable Qualified Code(s): R51 - Headache Condition: Stable Disposition: HOME, SELF-CARE Instructions: High Blood Pressure, Requiring Treatment ([facility]) Additional Instructions: You may require further adjustments of your blood pressure medications. Follow- up with your primary care physician in 1 to 2 days. Return to the ED with worsening or new concerning symptoms of any sort.
[2019-05-07 16:02] LABS: TROPONIN I < 0.012 ng/mL
--- NOTE | 2019-05-07 16:33 | RADIOLOGY REPORT (SQ) ---
EXAM DESCRIPTION: CT HEAD WITHOUT COMPLETED DATE/TIME: 05/07/2019 4:21 pm REASON FOR STUDY: headache, elevated BP COMPARISON: None. TECHNIQUE: Axial images acquired through the brain without intravenous contrast. Images reviewed wi th bone, brain and subdural windows. Additional sagittal and coronal reconstructions were generated. Images stored on PACS. All CT scanners at this facility use dose modulation, iterative reconstruction, and/or weight based d osing when appropriate to reduce radiation dose to as low as reasonably achievable (ALARA). [facility]: Dose Right [facility]: CareDose [facility]: Dose Right [facility]: Teradose 4D [facility]: Smart iClinical RADIATION DOSE: CT Rad equipment meets quality standard of care and radiation dose reduction techniq ues were employed. CTDIvol: 53.2 mGy. DLP: 1044 mGy-cm. mGy. LIMITATIONS: None. FINDINGS: VENTRICLES: Prominent. CEREBRUM: No masses. No hemorrhage. No midline shift. Areas of low density in the white matter mos t likely due to chronic micro-vascular ischemic change. No evidence for acute infarction. CEREBELLUM: No masses. No hemorrhage. No alteration of density. No evidence for acute infarction. EXTRAAXIAL SPACES: Mild age-related involutional change. No fluid collections. No masses. ORBITS AND GLOBE: No intra- or extraconal masses. Normal contour of globe without masses. CALVARIUM: No fracture. PARANASAL SINUSES: No fluid or mucosal thickening. SOFT TISSUES: No mass or hematoma. OTHER: No other significant finding. IMPRESSION: MILD CHRONIC CHANGES OF ATROPHY AND MICROVASCULAR ISCHEMIA. NO ACUTE PROCESS. EVIDENCE OF ACUTE STROKE: NO. TECHNICAL DOCUMENTATION: JOB ID: [id number] Quality ID # [id number]: Final reports with documentation of one or more dose reduction techniques (e.g., Au tomated exposure control, adjustment of the mA and/or kV according to patient size, use of iterative reconstruction technique) 2010 [employer]- All Rights Reserved Reading location - IP/workstation name: [email or web address]
[2019-05-07 19:05] LABS: APPEARANCE,URINE TURBID; BILIRUBIN,URINE NEGATIVE (NEGATIVE); COLOR,URINE YELLOW; GLUCOSE, URINE NEGATIVE (NEGATIVE); KETONES,URINE NEGATIVE (NEGATIVE); LEUKOCYTE ESTERASE,URINE MODERATE (NEGATIVE); NITRITE,URINE POSITIVE (NEGATIVE); PROTEIN,URINE 100 mg/dL (NEGATIVE); URINE SPECIFIC GRAVITY 1.013; UROBILINOGEN,URINE NEGATIVE mg/dL (<2.0)
[2019-05-07 19:17] LABS: ADD MANUAL MICROSCOPIC YES; BACTERIA,URINE 4+ /HPF; WBC,URINE TOO NUMEROUS TO CNT /HPF
[2019-05-07 22:23] VITALS: BP 181/76
--- NOTE | 2019-05-08 08:46 | EKG REPORT ---
SEVERITY:- ABNORMAL ECG - SINUS BRADYCARDIA ABNRM R PROG, CONSIDER ASMI OR LEAD PLACEMENT : Confirmed by: Smiran Contreras MD 08-May-2019 08:45:24
== END 2019-05-07 22:57 | disposition home or self-care (01) ==
LOC: ER 12:57
DX: I10 Essential (primary) hypertension (principal); R51 Headache; E78.00 Pure hypercholesterolemia, unspecified; E11.9 Type 2 diabetes mellitus without complications; Z86.718 Personal history of other venous thrombosis and embolism; Z86.711 Personal history of pulmonary embolism
CPT/HCPCS: 36415; 70450; 71046; 80053; 81001; 82550; 82553; 83690; 83880; 84484; 85025; 85379; 85610; 85730; 93005; 93010; 99284